=== PATIENT | female | born 1940 | race Caucasian/White ===

== ENCOUNTER → 2018-10-02 08:35 | Outpatient (CLI) | payer SELFPAY ==
[2018-09-15 15:59] VITALS: BMI 35.3
--- NOTE | 2018-10-02 08:39 | ECHOCS_ITS ---
Reason For Study: syncope/near syncope, HTN Procedure This was a 2D Doppler, Color Flow transthoracic echocardiogram. Exam performed in department. Left Ventricle Normal size and thickness. The estimated ejection fraction is 65 %. Stage 1 diastolic dysfunction. No regional wall motion abnormalities noted. Right Ventricle Normal size and thickness. Normal systolic function. Atria The left atrium is mildly enlarged. Normal right atrium. Normal atrial septum. Mitral Valve The mitral valve is structurally normal. No prolapse or stenosis seen. Trivial mitral valve insufficiency. Tricuspid Valve Normal tricuspid valve. Trivial tricuspid valve insufficiency. Right ventricular systolic pressure estimated to be 25 mmHg. Aortic Valve Normal aortic valve. Trisinus/trileaflet aortic valve. Pulmonic Valve Normal pulmonic valve. Great Vessels Normal aortic root. Normal arch. Normal inferior vena cava. Inferior vena cava collapse with sniff. Pericardium/Pleural No pericardial effusion. Medication 22 gauge I.V. with prn adaptor inserted into right arm. Diluted definity 3.0ml given slow IV push to enhance endocardial definition. MMode/2D Measurements & Calculations LVIDd: 4.7 cm IVSd: 1.2 cm Ao root diam: 2.6 cm LVIDs: 2.9 cm LVPWd: 1.1 cm RVDd: 2.7 cm FS: 38.7 % LAV(MOD-bp): 72.0 ml LA A4 area: 22.4 cm2 LA dimension(2D): 4.5 cm LAV(MOD-bp) Indexed: 36.3 ml/m2 LAV(MOD-sp2): 71.2 ml LAV(MOD-sp4): 71.7 ml RA A4 area: 14.7 cm2 Time Measurements MV dec time: 0.23 sec Doppler Measurements & Calculations MV E max geoff: 110.6 cm/sec Lat Peak E' Geoff: 8.8 cm/sec Med Peak E' Geoff: 9.7 cm/sec MV A max geoff: 126.0 cm/sec E/E' lat: 12.6 E/E' med: 11.4 MV E/A: 0.88 PA V2 max: 89.2 cm/sec TR max geoff: 224.0 cm/sec TR max P.1 mmHg Interpretation Summary The estimated ejection fraction is 65 %. Stage 1 diastolic dysfunction. Trivial mitral valve insufficiency. Trivial tricuspid valve insufficiency. Right ventricular systolic pressure estimated to be 25 mmHg. The study was technically difficult. Contrast injection was performed. There is no comparison study available. Ordering Physician: Geoff Garcia Referring Physician: Amanda Bolanos Performed By: Lyndsay Mitchell, DEE, RVT
== END ==
PROVIDERS: Family Provider Student in an Organized Health Care Education/Training Program; PCP Student in an Organized Health Care Education/Training Program; Referring Provider Internal Medicine Cardiovascular Disease; Visit Provider Internal Medicine Cardiovascular Disease
DX: R55 Syncope and collapse (principal); I10 Essential (primary) hypertension
CPT/HCPCS: 93306; Q9957; A4216; C8929

== ENCOUNTER → 2018-10-06 08:49 | Outpatient (CLI) | payer SELFPAY ==
[2018-09-15 15:59] VITALS: BMI 35.3
--- NOTE | 2018-10-06 09:05 | STEWCON_ITS ---
Reason For Study: SYNCOPE/NEAR SYNCOPE Stress Results Protocol: Dobutamine with definity Maximum Predicted HR: 144 bpm Target HR: 122 bpm % Maximum Predicted HR: 97 % DurationHeart Rate Stage (mm:ss) (bpm) BP Comment BASELINE 104 153/841.4CC DEFINITY DOBUTAMINE 10 MCG 3:00 134 177/780.6 CC DEFINITY DOBUTAMINE 20 MCG 2:22 139 177/782 CC DEFINTIY RECOVERY 120 145/771 CC DEFINITY Stress Duration: 5:22 mm:ss Maximum Stress HR: 139 bpm Baseline Echocardiogram Findings The estimated ejection fraction is 65 %. Stress Echo Wall motion Data Resting WM Intermediate WM Stress WM Resting Wall Motion Wall Motion Stress No regional wall motion No regional wall motion abnormalities noted. abnormalities noted. EKG Data The baseline ECG displays normal sinus rhythm. The patient was titrated from 10 mcg to a maximum of 20 mcg of dobutamine during the stress. The maximum heart rate attained was 164 beats per minute. This was 113% of maximum predicted heart rate. At peak infusion, upsloping ST changes only were noted, which did not meet the criteria for ischemia. No clinical angina was noted. Interpretation Summary The estimated ejection fraction is 65 %. Normal, adequate, dobutamine echocardiogram. Negative for ischemia by EKG and echocardiographic criteria. No anginal symptoms noted. Rare PVC noted. Baseline atrial fibrillation at rest. Test terminated due to attainment of target heart rate. Final LVEF is 75%. Decreased sensitivity due to poor echo windows requiring Definity agent. No complications. The study was technically difficult. Contrast injection was performed. Ordering Physician: Geoff Garcia Referring Physician: Geoff Garcia Performed By: Alta Loza RDCS
[2018-10-06 10:12] LABS: AST(SGOT) 16 U/L (15-37); Alanine Aminotransfer ALT/SGPT 21 U/L (13-56); Alkaline Phosphatase 83 U/L (45-117); Bilirubin, Direct 0.17 mg/dL (0.00-0.30); Cholesterol 189 mg/dL (200); Globulin 3.5 g/dL (2.2-4.2); High Density Lipoprotein 61 mg/dL; Protein, Total 7.5 g/dL (6.4-8.2); Triglycerides 154 mg/dL; Very Low Density Lipoprotein 31 mg/dL (5-40)
== END ==
PROVIDERS: Family Provider Student in an Organized Health Care Education/Training Program; PCP Student in an Organized Health Care Education/Training Program; Referring Provider Internal Medicine Cardiovascular Disease; Visit Provider Internal Medicine Cardiovascular Disease
DX: R55 Syncope and collapse (principal); I10 Essential (primary) hypertension; E78.5 Hyperlipidemia, unspecified
CPT/HCPCS: 36415; 80061; 80076; 93017; 93350; J7040; Q9957; A4216; C8928

== ENCOUNTER 2022-05-13 10:32 | Inpatient (IN) | payer OTHER, SELFPAY ==
[2022-05-13] VITALS (11 sets, daily range): BP systolic 127–199; BP diastolic 73–119; PULSE 63–120; RESP 16–24; TEMP 36–36.8; O2SAT 90–99; BMI 32.2; BMI 31.8
--- NOTE | 2022-05-13 11:11 | EX.ED.VIS.UR ---
HPI HPI - URI History of Present Illness Chief Complaint: Cough Informant: patient and family Onset/Context/Timing Onset: Days Context: Gradual Onset Timing: Continuous Current Severity: Mild Maximum Severity: Mild Associated Symptoms Associated Symptoms: Positive for Shortness of Breath and Nonproductive cough Narrative Narrative: 82-year-old female history of hypertension. She has had a cough for about. Was seen in urgent care and started on a Zithromax Z-YOBANI which she is almost finished. Really no significant improvement. Her and family states she has been so weak and has felt short of breath. No fever or chills. No vomiting or diarrhea. No chest pain or hemoptysis. This morning she was found down at home and there is questionable if she had any loss of conscious. It was unwitnessed fall. Prior similar symptoms: No Recent Illness/Hospitalization: No ROS ROS ED ROS Narrative Cough. Wheezing. Shortness of breath. Generalized weakness. Review of Systems ROS Unobtainable: Denies due to encephalopathy Constitutional Constitutional ED: Denies chills or fever(s) Eyes Eyes: Denies blurry vision ENT ENT ED: Denies ear pain Cardiovascular Cardiovascular: Denies chest pain or palpitations Respiratory/Chest Respiratory/Chest: Reports cough and dyspnea Gastrointestinal Gastrointestinal: Denies abdominal pain, constipation, diarrhea, melena, nausea or vomiting Genitourinary Genitourinary ED: Denies dysuria Musculoskeletal Musculoskeletal: Denies arthralgias Integumentary Denies abscess Neurologic Neurologic: Denies headache(s) Psychiatric Psychiatric: Denies anxiety Endocrine Endocrinology: Denies cold intolerance Hematologic/Lymphatic Hematologic/Lymphatic: Denies easy bleeding Allergic/Immunologic Allergic/Immunologic ED: Denies mouth swelling or tongue swelling [facility] Medical History (Updated 05/13/22 @ 13:[address] Chalo Hatch MD) Anxiety Brain aneurysm Depression Dizziness Hypertension Severe uncontrolled hypertension Syncope and collapse Home Medications aspirin 81 mg tablet,delayed release (Adult Aspirin Regimen) 81 mg PO DAILY 09/15/18 [History Last Taken 05/13/22] azithromycin 250 mg tablet 250 mg PO DAILY ANTIBIOTIC 05/13/22 [History Last Taken 05/13/22] metoprolol succinate 100 mg tablet,extended release 24 hr 100 mg PO DAILY HTN 05/13/22 [History Last Taken 05/13/22] Allergy/AdvReac Type Severity Reaction Status Date / Time No Known Allergies Allergy Verified 05/13/22 10:33 Family History Mother Heart disease Surgical History History of hernia repair Social History Smoking Status: Never smoker EXAM Physical Exam Narrative Exam Narrative: 82-year-old female no acute distress. Vital signs are stable afebrile. Pulse ox is 91% on room air no signs of hypoxia. Her initial blood pressure elevated 138/119. H EENT exam unremarkable. Neck nontender no JVD. Lungs few scattered expiratory wheezes. No rales or rhonchi. Heart tachycardia with a rate of 120 may be A-fib.. Abdomen soft nontender. Moving all 4 extremities. Calves are nontender without edema or cords. Neurologically she is awake and alert with no focal motor deficits. Const Vital Signs: 05/13/22 10:33 05/13/22 11:10 05/13/22 11:10 Temperature 96.8 F L Temperature Source Temporal Pulse Rate 83 Respiratory Rate 18 Respiratory Effort Short of Breath Respiratory Depth Normal Respiratory Pattern Normal Blood Pressure 138/119 H Blood Pressure Mean 125 Pulse Ox 91 Oxygen Delivery Method Room Air Room Air Room Air Oxygen Flow Rate (L/min) 05/13/22 12:00 05/13/22 12:01 05/13/22 12:19 Temperature Temperature Source Pulse Rate 119 H Respiratory Rate 24 H 16 24 H Respiratory Effort Respiratory Depth Respiratory Pattern Tachypnea Blood Pressure Blood Pressure Mean Pulse Ox 90 97 Oxygen Delivery Method Room Air Nasal Cannula Oxygen Flow Rate (L/min) 2 Positive well nourished, well developed and obese; Negative for cachectic or contractures General Appearance ED: well developed and pallor; Negative for cachectic or contractures Nutritional Appearance: obese; Negative for cachectic HEENT Reports moist mucous membranes; Denies dry mucous membranes normocephalic and atraumatic Face and Sinus: Negative for sinus tenderness Mouth ED: No dry mucous membranes Mouth: No dry mucous membranes Throat: posterior oropharynx normal Eyes PERRL and EOMs intact bilaterally General Eye ED: Negative for pale conjunctiva or scleral icterus Neck no lymphadenopathy, supple, no meningeal signs and no JVD Resp normal respiratory effort and No clear to auscultation bilaterally Effort and Inspection: Negative for retractions Auscultation: wheezes; Negative for rales or rhonchi Cardio S1 normal heart sound, S2 normal heart sound and no murmurs Cardio Narrative: Tachycardia rate around 120 suspect A-fib. Rate: tachycardic; Negative for regular rate Rhythm: abnormal rhythm; Negative for regular rhythm GI non-tender, non-distended and no masses Inspection: Negative for abdominal distention Auscultation: normoactive bowel sounds Palpation: soft; Negative for tender Back/Spine no CVA tenderness and normal ROM General Back: Negative for CVA tenderness Cervical Spine: Negative for cervical spine tenderness Thoracic Spine / Upper Back: Negative for thoracic spinal tenderness Lumbar Spine / Lower Back: Negative for lumbar spinal tenderness Sacrum: Negative for tenderness Extremity normal to inspection and full ROM General Extremety ED: Negative for cyanosis or tenderness General Extremity: Negative for cyanosis Neuro oriented x3 and CN's II-XII intact bilaterally Sensorium / Orientation: alert, oriented to person, oriented to place and oriented to time; Negative for orientation impaired, lethargic or stuporous Motor Exam: strength 5/5 throughout Psych mental status grossly normal Appearance: Negative for other Attitude: No agitated Mood & Affect: Negative for depressed, anxious or tearful Skin General Skin Exam: pallor; Negative for jaundice Lesions: no lesions Rashes: no rashes Trauma: Negative for abrasion MDM MDM MDM Narrative Medical decision making narrative: 82-year-old short of breath, wheezing and pale. Been treated for a URI without relief of her symptoms. This could be from underlying pneumonia, COVID, anemia versus a cardiac etiology. She undergo a cardiac work-up with a chest x-ray and a COVID test. 82-year-old with A-fib RVR. Being given IV Cardizem. I have the hospitalist on page for admission. Lab Data Attestation: I reviewed the patient's lab results. Lab results narrative: COVID and influenza swabs are negative. White count 11.4. H&H 14 and 43. Platelets 205. Electrolytes show a gap of 7. BUN 19 creatinine 0.7. Glucose 116. Troponin is only 7. BNP is elevated at 635. Chest x-ray no acute process. Labs: Laboratory Results - last 24 hr 05/13/22 05/13/22 05/13/22 12:06 12:06 12:06 WBC 11.4 H RBC 5.10 Hgb 14.0 Hct 43.1 MCV 84.5 MCH 27.5 MCHC 32.5 RDW Std Deviation 39.8 RDW Coeff of Marissa 12.9 Plt Count 205 MPV 10.6 Immature Gran % (Auto) 0.400 Neut % (Auto) 79.0 H Lymph % (Auto) 12.0 L [place] % (Auto) 8.2 Eos % (Auto) 0.1 Baso % (Auto) 0.3 Absolute Neuts (auto) 9.0 H Absolute Lymphs (auto) 1.37 Nucleated RBC % 0 Sodium 139 Potassium 3.9 Chloride 104 Carbon Dioxide 28.0 Anion Gap 7 BUN 19 H Creatinine 0.79 Estim Creat Clear Calc 42.00 Est GFR (MDRD) Af Amer 90 Est GFR (MDRD) Non-Af 74 BUN/Creatinine Ratio 23.9 H Glucose 116 H Calcium 9.4 Troponin I High Sens 12 B-Natriuretic Peptide 635.7 H Radiography Diagnostic Testing: Clinical Impression(s) from Imaging Studies Chest X-Ray 05/13/22 12:10 IMPRESSION: No acute abnormality is seen. Electronically Signed: Wayne Clemons MD at 12:23 EST , Chest x-ray, portable, single view shows no acute abnormality. Normal cardiac silhouette. Rhythm Strip Rhythm Strip: A-fib Rate: 120 Ectopy: None EKG Initial EKG: Attestation: I personally reviewed and interpreted this EKG as follows: Interpretation: No Acute Injury Pattern and Atrial Fibrillation Comments: Atrial fibrillation with a rate of 120 no acute signs of RI or ischemia. Prior EKG tracings: not available for review Discharge Plan Dx/Rx/DC Orders Clinical Impression: Atrial fibrillation with rapid ventricular response, Acute dyspnea Disposition Disposition: [facility]
--- NOTE | 2022-05-13 11:15 | EKG12_ITS ---
Test Reason : Blood Pressure : / mmHG Vent. Rate : 120 BPM Atrial Rate : 000 BPM P-R Int : 000 ms QRS Dur : 068 ms QT Int : 270 ms P-R-T Axes : 000 060 125 degrees QTc Int : 381 ms Atrial fibrillation with rapid ventricular response with premature ventricular or aberrantly conducte d complexes Nonspecific ST and T wave abnormality Abnormal ECG Confirmed by ARIAN CORADO, CADEN ([id number]), story editor MICHAEL CARRASCO ([id number]) on 05/14/2022 9:59:28 AM Referred By: TU Confirmed By:CADEN DON MD
--- NOTE | 2022-05-13 12:10 | RAD_ITS ---
STUDY: X-RAY CHEST REASON FOR EXAM: Female, 82 years old. Chest pain TECHNIQUE: Single AP portable view of the chest. COMPARISON: None. FINDINGS: EKG electrodes are seen. A loop recording device is seen overlying the lower left hemithorax. The lungs are clear and expanded. There is no demonstrated pleural abnormality. Normal size heart. Normal mediastinum and ady. Normal visualized pulmonary arteries. Normal visualized aortic arch and descending thoracic aorta. There are diffuse degenerative changes of the visualized thoracic spine. There is degenerative osteoarthritis of the bilateral shoulders. There is no demonstrated abnormality of the visualized soft tissue structures of the upper abdomen. RAD/Chest 1 View (Portable) IMPRESSION: No acute abnormality is seen. Electronically Signed: Wayne Clemons MD at 12:23 EST ,
[2022-05-13 12:11] LABS: Absolute Lymphocyte Count 1.37 X10^3/uL (0.83-4.51); Basophil# 0.03 X10^3/uL; Basophil% 0.3 % (0-1); Eosinophil# 0.01 X10^3/uL; Eosinophils% 0.1 % (0-5); Hematocrit 43.1 % (37-47); Lymphocyte # 1.37 X10^3/ul (0.83-4.51); Mean Corp Hgb Conc 32.5 g/dL (32-36); Mean Corpuscular Hgb 27.5 pg (27.0-32.0); Mean Corpuscular Volume 84.5 fL (81-99); Mean Platelet Vol. 10.6 fl (6.2-12.0); Monocyte# 0.93 X10^3/uL; Monocyte% 8.2 % (0-10); NRBC Flagged by Analyzer 0 % (0-5); Platelet Count 205 K/mm3 (150-450); RBC Distribution Width CV 12.9 % (11.6-14.6); RBC Distribution Width SD 39.8 fl (35.1-43.9); White Blood Count 11.4 K/mm3 (4.4-11.0)
[2022-05-13] MEDS: Ipratropium/Albuterol Sulfate 3 ML AMPUL.NEB INHALATION (12:19)
[2022-05-13 12:26] LABS: BNP,B-Type NATRIURETIC PEPTIDE 635.7 pg/mL (0-100)
[2022-05-13 12:30] LABS: Anion Gap 7 (5-15); BUN 19 mg/dL (7-18); BUN/Creat Ratio 23.9 RATIO (10-20); Calcium,Total 9.4 mg/dL (8.5-10.1); Chloride 104 mmol/L (98-107); Creatinine, Serum 0.79 mg/dL (0.55-1.02); EST Glomerular Filtration Rate 74 mL/min (>60); Est Glom Filt Rate - Afr Amer 90 mL/min (>60); Glucose 116 mg/dL (74-106); Potassium 3.9 mmol/L (3.5-5.1); Sodium Level 139 mmol/L (136-145); Troponin-I HS 12 pg/mL (3.0-54.0)
[2022-05-13] MEDS: dilTIAZem 25 MG/5 ML Vial 20 MG IV BOLUS (14:06)
--- NOTE | 2022-05-13 15:25 | HP.PCM.HOS_ITS ---
[facility] - General General Date of Service: 05/13/22 Chief Complaint: Shortness of breath [facility] Narrative JOCELYNE VILLEDA, is a 82 F who presents with shortness of breath. Patient recently started on Z-Kobe. But had not noted any improvement. So she presented to the emergency room and was found to be in atrial fibrillation with RVR. Heart rate in the 120s. Patient did receive one-time dose of IV diltiazem which helped her heart rate into the lower into the 60s but still remained in atrial fibrillation. Patient has no prior history of atrial fibrillation. Denies any chest pain. Does note that she has increasing lower extremity edema. Patient otherwise feels fine at this time. [facility] Medical History (Updated 05/13/22 @ 15:[address] Santosh Rooney DO) Anxiety Brain aneurysm Depression Dizziness Hypertension Severe uncontrolled hypertension Syncope and collapse Home Medications aspirin 81 mg tablet,delayed release (Adult Aspirin Regimen) 81 mg PO DAILY 09/15/18 [History Last Taken 05/13/22] azithromycin 250 mg tablet 250 mg PO DAILY ANTIBIOTIC 05/13/22 [History Last Taken 05/13/22] metoprolol succinate 100 mg tablet,extended release 24 hr 100 mg PO DAILY HTN 05/13/22 [History Last Taken 05/13/22] Allergy/AdvReac Type Severity Reaction Status Date / Time No Known Allergies Allergy Verified 05/13/22 10:33 Family History Mother Heart disease Surgical History History of hernia repair Social History Smoking Status: Never smoker Vital Signs Vital Signs Vital Signs: 05/13/22 10:33 05/13/22 11:10 05/13/22 11:10 Temperature 36.0 C L Temperature Source Temporal Pulse Rate 83 Respiratory Rate 18 Respiratory Effort Short of Breath Respiratory Depth Normal Respiratory Pattern Normal Blood Pressure 138/119 H Blood Pressure Mean 125 Pulse Ox 91 Oxygen Delivery Method Room Air Room Air Room Air Oxygen Flow Rate (L/min) 05/13/22 12:00 05/13/22 12:01 05/13/22 12:19 Temperature Temperature Source Pulse Rate 119 H Respiratory Rate 24 H 16 24 H Respiratory Effort Respiratory Depth Respiratory Pattern Tachypnea Blood Pressure Blood Pressure Mean Pulse Ox 90 97 Oxygen Delivery Method Room Air Nasal Cannula Oxygen Flow Rate (L/min) 2 05/13/22 14:05 05/13/22 14:13 Temperature Temperature Source Pulse Rate 120 H 63 Respiratory Rate 20 H Respiratory Effort Respiratory Depth Respiratory Pattern Blood Pressure 127/73 H Blood Pressure Mean 91 Pulse Ox 96 Oxygen Delivery Method Nasal Cannula Oxygen Flow Rate (L/min) 2 Weight Weight: 90.6 kg Body Mass Index (BMI) 32.2 Physical Exam Const alert and no apparent distress Constitutional Narrative: No respiratory distress. No conversational dyspnea. HEENT normocephalic, hearing grossly normal bilaterally and moist oral mucous membranes Resp normal respiratory effort, no retractions, no use of accessory muscles and clear to auscultation bilaterally Cardio S1 normal heart sound and S2 normal heart sound Cardio Narrative: Irregularly irregular GI normal to inspection, nondistended, normoactive bowel sounds, soft to palpation, non-tender and non-distended Extremity no clubbing, cyanosis or edema Extremity Narrative: +1 lower extremity edema bilaterally. Skin Skin Narrative: No rashes or bruises. Neuro moves all extremities and no focal motor deficits Psych affect normal Results Lab / Micro Data Attestation: I reviewed the patient's lab results. Result Diagrams: 05/13/22 12:06 05/13/22 12:06 Labs: Laboratory Results - last 24 hr 05/13/22 12:06: WBC 11.4 H, RBC 5.10, Hgb 14.0, Hct 43.1, MCV 84.5, MCH 27.5, MCHC 32.5, RDW Std Deviation 39.8, RDW Coeff of Marissa 12.9, Plt Count 205, MPV 10.6, Immature Gran % (Auto) 0.400, Neut % (Auto) 79.0 H, Lymph % (Auto) 12.0 L, [place] % (Auto) 8.2, Eos % (Auto) 0.1, Baso % (Auto) 0.3, Absolute Neuts (auto) 9.0 H, Absolute Lymphs (auto) 1.37, Nucleated RBC % 0 05/13/22 12:06: Sodium 139, Potassium 3.9, Chloride 104, Carbon Dioxide 28.0, Anion Gap 7, BUN 19 H, Creatinine 0.79, Estim Creat Clear Calc 42.00, Est GFR (MDRD) Af Amer 90, Est GFR (MDRD) Non-Af 74, BUN/Creatinine Ratio 23.9 H, Glucose 116 H, Calcium 9.4, Troponin I High Sens 12 05/13/22 12:06: B-Natriuretic Peptide 635.7 H Micro: Microbiology 05/13/22 11:45 Nasal Secretion SARS-CoV-2 & FLU Antigen (Rapid) - Final Rhythm Strip Rhythm Strip: A-fib Rate: 120 Ectopy: None EKG Initial EKG: Attestation: I personally reviewed and interpreted this EKG as follows: Prior EKG tracings: available for review EKG Rhythm Intrepretation: Atrial Fibrillation (With RVR) Radiology Impression Chest X-Ray 05/13/22 12:10 IMPRESSION: No acute abnormality is seen. Electronically Signed: Wayne Clemons MD at 12:23 EST , Assessment & Plan Assessment/Plan (1) Atrial fibrillation with rapid ventricular response: PLAN: Currently rate controlled but still in atrial fibrillation Will change her metoprolol succinate from 100 daily to 50 twice daily Check echocardiogram Consult cardiology [id number] of 4: Will hold off on anticoagulation until we get further records from [facility] to ensure that we can properly anticoagulate. In the meantime continue with aspirin. (2) CHF exacerbation: QUALIFIERS: Heart failure type: unspecified Qualified Code(s): I50.9 - Heart failure, unspecified PLAN: Acute Unclear type Chest x-ray is unremarkable but does have lower extremity edema IV furosemide (3) Brain aneurysm: PLAN: Per history has been evaluated at [facility]. We will request records from [facility] PLAN: Plan VTE prophylaxis: SCDs for now CODE STATUS: Addressed with the patient. Patient was to be DNR Comfort Care arrest no intubation. Family, who is present in the room, is also on board with that. Charges/Coding Visit Charges Inpatient E&M: 95596 Init Hosp L3
--- NOTE | 2022-05-13 17:45 | PCM.CONS.C ---
Assessment & Plan Assessment/Plan (1) CHF exacerbation: QUALIFIERS: Heart failure type: unspecified Qualified Code(s): I50.9 - Heart failure, unspecified PLAN: She does appear to have congestive heart failure with exacerbation. This is likely on the basis of her elevated blood pressure as well as the atrial fibrillation. At this particular time I would recommend that we proceed with diuretic management. We should obtain an echocardiogram to assess her ventricular function and depending on the findings further recommendations will be made. (2) Atrial fibrillation with rapid ventricular response: PLAN: She does have atrial fibrillation and presented with a rapid ventricular response rate. She had been on her beta-antelmo. I would recommend that we continue the same. I suspect the congestive heart failure led to some of the rapid ventricular response rate and vice versa. I do not think that she is a candidate for anticoagulation based on her previous aneurysmal findings. (3) Severe uncontrolled hypertension: PLAN: She does have severe uncontrolled hypertension. I will recommend the addition of an DUNIA inhibitor for better blood pressure control together with the beta-antelmo. She will also benefit from a diuretic Thank you for allowing me to participate in the care of your patient. Please don't hesitate to call if any issues arise. HPI Consult Data Date of Consult: 05/13/22 HPI Narrative HPI Narrative: JOCELYNE VILLEDA, is a 82 F who presents to the emergency room with a complaint of shortness of breath as well as near syncope. She does have a history of atrial fibrillation, hypertension and has not been seen in our practice for over 3 years. She had previously presented with dizziness as well as near syncope and severely elevated blood pressure. She was treated for the above. 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 It does not appear that this was intervened on. She says that she has had numerous episodes of syncope in the past and actually had an implantable loop recorder which she had not had interrogated over many years. In September 2018 she had had an echocardiogram demonstrating an ejection fraction of 65%, stage I diastolic dysfunction and no wall motion abnormalities noted. She also had a stress test done which did not demonstrate any evidence of ischemia. On her visits to the emergency room today she was noted to be in atrial fibrillation with a controlled ventricular response rate. She had been on metoprolol to which it appears that she was compliant. She however has noted that her feet have been swelling, she denies a cough or chest discomfort but has been short of breath with minimal exertion. Cardiology was called to see her because of the atrial fibrillation. [facility] Medical History Anxiety Brain aneurysm Depression Dizziness Hypertension Severe uncontrolled hypertension Syncope and collapse Home Medications aspirin 81 mg tablet,delayed release (Adult Aspirin Regimen) 81 mg PO DAILY 09/15/18 [History Last Taken 05/13/22] azithromycin 250 mg tablet 250 mg PO DAILY ANTIBIOTIC 05/13/22 [History Last Taken 05/13/22] metoprolol succinate 100 mg tablet,extended release 24 hr 100 mg PO DAILY HTN 05/13/22 [History Last Taken 05/13/22] Allergy/AdvReac Type Severity Reaction Status Date / Time No Known Allergies Allergy Verified 05/13/22 10:33 Family History Mother Heart disease Surgical History History of hernia repair Social History Smoking Status: Never smoker ROS Constitutional Constitutional: Denies fever(s) or weight loss Eyes Eyes: Reports systems reviewed and no addt'l complaints, except as documented ENT HEENT: Reports systems reviewed and no addt'l complaints, except as documented Cardiovascular Cardiovascular: Reports dyspnea at rest, dyspnea on exertion, edema and palpitations; Denies chest pain at rest, chest pain with activity or paroxysmal nocturnal dyspnea Respiratory/Chest Respiratory/Chest: Reports dyspnea on exertion, shortness of breath at rest and shortness of breath with exertion; Denies productive cough Gastrointestinal Gastrointestinal: Denies change in bowel habits, nausea, vomiting or weight changes Genitourinary Genitourinary: Denies difficulty urinating Musculoskeletal Musculoskeletal: Denies joint stiffness or muscle weakness Integumentary Integumentary: Denies lesions Neurologic Neurologic: Denies dizziness or syncope Psychiatric Psychiatric: Denies anxiety Endocrine Endocrinology: Denies excessive sweating or fatigue Hematologic/Lymphatic Hematologic/Lymphatic: Denies anemia Allergic/Immunologic Allergic/Immunologic: Denies seasonal rhinorrhea Physical Exam Const alert, oriented x3 and no apparent distress General Appearance: cooperative HEENT hearing grossly normal bilaterally Head and Scalp: atraumatic Eyes EOMs intact bilaterally Neck General: normal visual inspection Chest inspection of chest normal and palpation of chest normal Resp normal respiratory effort Auscultation: clear to auscultation bilaterally Cardio S1 normal heart sound and S2 normal heart sound Jugular Venous Distention: JVD Rhythm: abnormal rhythm irregularly irregular GI normal to inspection, nondistended, normoactive bowel sounds Extremity normal capillary refill General Extremity: edema bilateral Peripheral Pulses: Yes pulses 2+ throughout and femoral pulses present Skin no rashes or lesions noted Neuro oriented x3 and CN's II-XII intact bilaterally Psych Appearance: grossly normal and appropriate Risk Stratification Risk Stratification Applicable: No Objective Data Vital Signs: Vital Signs Temp Pulse Resp BP Pulse Ox O2 Del Method O2 Flow Rate 98.0 F 76 18 159/95 H 99 Nasal Cannula 2 05/13/22 16:03 05/13/22 16:03 05/13/22 16:03 05/13/22 16:03 05/13/22 16:03 05/13/22 16:03 05/13/22 16:03 Oxygen Flow Rate (L/min) 2 Oxygen Delivery Method Nasal Cannula Weight: 199 lb 11.821 oz Body Mass Index (BMI) 32.2 Lab / Micro Data Result Diagrams: 05/13/22 12:06 05/13/22 12:06 Labs: Laboratory Results - last 24 hr 05/13/22 12:06: WBC 11.4 H, RBC 5.10, Hgb 14.0, Hct 43.1, MCV 84.5, MCH 27.5, MCHC 32.5, RDW Std Deviation 39.8, RDW Coeff of Marissa 12.9, Plt Count 205, MPV 10.6, Immature Gran % (Auto) 0.400, Neut % (Auto) 79.0 H, Lymph % (Auto) 12.0 L, [place] % (Auto) 8.2, Eos % (Auto) 0.1, Baso % (Auto) 0.3, Absolute Neuts (auto) 9.0 H, Absolute Lymphs (auto) 1.37, Nucleated RBC % 0 05/13/22 12:06: Sodium 139, Potassium 3.9, Chloride 104, Carbon Dioxide 28.0, Anion Gap 7, BUN 19 H, Creatinine 0.79, Estim Creat Clear Calc 42.00, Est GFR (MDRD) Af Amer 90, Est GFR (MDRD) Non-Af 74, BUN/Creatinine Ratio 23.9 H, Glucose 116 H, Calcium 9.4, Troponin I High Sens 12 05/13/22 12:06: B-Natriuretic Peptide 635.7 H Micro: Microbiology 05/13/22 11:45 Nasal Secretion SARS-CoV-2 & FLU Antigen (Rapid) - Final Rhythm Strip Rhythm Strip: A-fib Rate: 120 Ectopy: None Cardiology Labs/Tests 05/13/22 12:06: WBC 11.4 H, RBC 5.10, Hgb 14.0, Hct 43.1, MCV 84.5, MCH 27.5, MCHC 32.5, Plt Count 205, MPV 10.6, Immature Gran % (Auto) 0.400, Neut % (Auto) 79.0 H, Lymph % (Auto) 12.0 L, [place] % (Auto) 8.2, Eos % (Auto) 0.1, Baso % (Auto) 0.3, Absolute Neuts (auto) 9.0 H, Nucleated RBC % 0 05/13/22 12:06: Sodium 139, Potassium 3.9, Chloride 104, Carbon Dioxide 28.0, Anion Gap 7, BUN 19 H, Creatinine 0.79, Est GFR (MDRD) Af Amer 90, Est GFR (MDRD) Non-Af 74, BUN/Creatinine Ratio 23.9 H, Glucose 116 H, Calcium 9.4 05/13/22 12:06: B-Natriuretic Peptide 635.7 H Rhythm: EKG: ECHO: Stress Test: Cardiac Cath: PCI: CT Surgery: Holter monitor: EPS: PPM: CXR: Chest CT Scan: Radiography Diagnostic Testing: Radiology Impression Chest X-Ray 05/13/22 12:10 IMPRESSION: No acute abnormality is seen. Electronically Signed: Wayne Clemons MD at 12:23 EST ,
--- NOTE | 2022-05-13 17:51 | ECHOCS_ITS ---
Version 2 Reason For Study: Afib/Flutter Procedure This was a 2D Doppler, Color Flow transthoracic echocardiogram. The study was technically difficult. Contrast injection was performed. Exam performed portable in patient room. Left Ventricle Normal LV size. Left ventricular systolic function is lower limits of normal. The estimated ejection fraction is 53 %. Stage 2 diastolic dysfunction. No regional wall motion abnormalities noted. Right Ventricle Normal RV size. Normal systolic function. Atria Normal left atrium. Normal right atrium. Mitral Valve Normal mitral valve. Tricuspid Valve Normal tricuspid valve. Aortic Valve Trisinus/trileaflet aortic valve. Pulmonic Valve Normal pulmonic valve. Great Vessels Normal aortic root. The pulmonary artery is normal size. Normal inferior vena cava. Pericardium/Pleural No pericardial effusion. Medication Diluted definity 1.5ml given slow IV push to enhance endocardial definition. MMode/2D Measurements & Calculations LVIDd: 4.6 cm IVSd: 0.81 cm LA dimension: 4.1 cm LVIDs: 3.2 cm LVPWd: 0.83 cm RVDd: 2.6 cm FS: 30.2 % LAV(MOD-bp): 44.0 ml LA A4 area: 15.6 cm2 RA A4 area: 14.2 cm2 LAV(MOD-bp) Indexed: 22.2 ml/m2 LAV(MOD-sp2): 50.6 ml LAV(MOD-sp4): 37.9 ml Time Measurements MV dec time: 0.14 sec Doppler Measurements & Calculations MV E max geoff: 90.3 cm/sec Lat Peak E' Geoff: 9.2 cm/sec Med Peak E' Geoff: 7.4 cm/sec MV A max geoff: 73.5 cm/sec E/E' lat: 9.9 E/E' med: 12.2 MV E/A: 1.2 MV V2 max: 123.6 cm/sec MV P1/2t max geoff: 124.7 cm/sec Ao V2 max: 134.8 cm/sec MV max P.1 mmHg MV P1/2t: 62.0 msec Ao max P.3 mmHg MV V2 mean: 71.5 cm/sec MV dec slope: 589.0 cm/sec2 Ao V2 mean: 92.3 cm/sec MV mean P.4 mmHg Ao mean P.0 mmHg MV V2 VTI: 31.2 cm MVA(P1/2t): 3.5 cm2 Ao V2 VTI: 27.0 cm AV (velocity ratio): 0.76 LV V1 max: 101.6 cm/sec MR max geoff: 396.4 cm/sec PA V2 max: 70.1 cm/sec LV V1 max P.2 mmHg MR max P.8 mmHg PA V2 mean: 46.6 cm/sec LV V1 mean P.3 mmHg LV V1 mean: 71.6 cm/sec LV V1 VTI: 20.4 cm ECHO/Echo Complete W/ Contrast Interpretation Summary Normal LV size. Left ventricular systolic function is lower limits of normal. The estimated ejection fraction is 53 %. Stage 2 diastolic dysfunction. Contrast injection was performed. Ordering Physician: Bob Walter Performed By: Ruben Basilio RCS
[2022-05-13] MEDS: Furosemide 40 MG/4 ML Vial IV (18:33)
[2022-05-13] MEDS: Metoprolol Tartrate 50 MG Tablet PO (21:17)
[2022-05-13] MEDS: Nystatin Powder 15gm Bottle 1 APPLIC TOPICAL (21:17)
[2022-05-13] MEDS: 0.9% Saline Lock 10 ML Syringe IV (21:17)
[2022-05-13 21:28] LABS: Troponin-I HS 13 pg/mL (3.0-54.0)
[2022-05-13 22:45] LABS: Troponin-I HS 13 pg/mL (3.0-54.0)
[2022-05-14] VITALS (11 sets, daily range): BP systolic 135–148; BP diastolic 59–91; PULSE 72–150; RESP 18; TEMP 36.6–37.2; O2SAT 98–100; BMI 31.5
[2022-05-14 02:33] LABS: Absolute Lymphocyte Count 1.57 X10^3/uL (0.83-4.51); Absolute Neutrophil Count 6.9 X10^3/uL (2.0-7.7); Basophil# 0.03 X10^3/uL; Basophil% 0.3 % (0-1); Eosinophil# 0.14 X10^3/uL; Eosinophils% 1.5 % (0-5); Hematocrit 42.3 % (37-47); Hemoglobin 13.6 g/dL (12.0-15.0); Lymphocyte # 1.57 X10^3/ul (0.83-4.51); Lymphocyte % 16.4 % (19-41); Mean Corp Hgb Conc 32.2 g/dL (32-36); Mean Corpuscular Volume 83.9 fL (81-99); Mean Platelet Vol. 10.3 fl (6.2-12.0); Monocyte% 9.4 % (0-10); NRBC Flagged by Analyzer 0 % (0-5); Platelet Count 184 K/mm3 (150-450); RBC Distribution Width SD 39.6 fl (35.1-43.9); Red Blood Count 5.04 M/mm3 (4.2-5.4); White Blood Count 9.6 K/mm3 (4.4-11.0)
[2022-05-14 02:50] LABS: Anion Gap 8 (5-15); BUN 17 mg/dL (7-18); BUN/Creat Ratio 21.7 RATIO (10-20); Calcium,Total 9.2 mg/dL (8.5-10.1); Chloride 100 mmol/L (98-107); Creatinine, Serum 0.78 mg/dL (0.55-1.02); EST Glomerular Filtration Rate 75 mL/min (>60); Est Glom Filt Rate - Afr Amer 91 mL/min (>60); Glucose 112 mg/dL (74-106); Potassium 3.4 mmol/L (3.5-5.1); Sodium Level 140 mmol/L (136-145)
[2022-05-14 02:51] LABS: Troponin-I HS 13 pg/mL (3.0-54.0)
[2022-05-14] MEDS: Potassium Chloride Oral Tablet 20 MEQ 40 MEQ PO (03:50)
[2022-05-14] MEDS: 0.9% Saline Lock 10 ML Syringe IV ×4 (05:23→21:55)
[2022-05-14] MEDS: Metoprolol Tartrate 5 MG/5 ML Vial IV ×2 (05:23→06:49)
--- NOTE | 2022-05-14 07:34 | PN.CARD_ITS ---
Subjective Subjective The patient was seen and evaluated. Objective Data Vital Signs: Vital Signs Temp Pulse Resp BP Pulse Ox O2 Del Method O2 Flow Rate 98 F 142 H 18 135/86 H 98 Nasal Cannula 2 05/14/22 03:45 05/14/22 06:49 05/14/22 03:45 05/14/22 06:49 05/14/22 03:45 05/14/22 03:49 05/14/22 03:49 Oxygen Flow Rate (L/min) 2 Oxygen Delivery Method Nasal Cannula Weight: 196 lb 3.382 oz Body Mass Index (BMI) 31.5 Intake & Output: Intake and Output for Last 24 Hours 05/12/22 05/13/22 05/14/22 23:59 23:59 23:59 Intake Total 240 / 240 Output Total 2400 / 2400 300 / 300 Balance -2160 / -2160 -300 / -300 Lab / Micro Data Result Diagrams: 05/14/22 02:25 05/14/22 02:25 Labs: Laboratory Results - last 24 hr 05/13/22 12:06: WBC 11.4 H, RBC 5.10, Hgb 14.0, Hct 43.1, MCV 84.5, MCH 27.5, MCHC 32.5, RDW Std Deviation 39.8, RDW Coeff of Marissa 12.9, Plt Count 205, MPV 10.6, Immature Gran % (Auto) 0.400, Neut % (Auto) 79.0 H, Lymph % (Auto) 12.0 L, [place] % (Auto) 8.2, Eos % (Auto) 0.1, Baso % (Auto) 0.3, Absolute Neuts (auto) 9.0 H, Absolute Lymphs (auto) 1.37, Nucleated RBC % 0 05/13/22 12:06: Sodium 139, Potassium 3.9, Chloride 104, Carbon Dioxide 28.0, Anion Gap 7, BUN 19 H, Creatinine 0.79, Estim Creat Clear Calc 42.00, Est GFR (MDRD) Af Amer 90, Est GFR (MDRD) Non-Af 74, BUN/Creatinine Ratio 23.9 H, Glucose 116 H, Calcium 9.4, Troponin I High Sens 12 05/13/22 12:06: B-Natriuretic Peptide 635.7 H 05/13/22 20:38: Troponin I High Sens 13 05/13/22 22:19: Troponin I High Sens 13 05/14/22 02:25: WBC 9.6, RBC 5.04, Hgb 13.6, Hct 42.3, MCV 83.9, MCH 27.0, MCHC 32.2, RDW Std Deviation 39.6, RDW Coeff of Marissa 13.0, Plt Count 184, MPV 10.3, Immature Gran % (Auto) 0.400, Neut % (Auto) 72.0 H, Lymph % (Auto) 16.4 L, [place] % (Auto) 9.4, Eos % (Auto) 1.5, Baso % (Auto) 0.3, Absolute Neuts (auto) 6.9, Absolute Lymphs (auto) 1.57, Nucleated RBC % 0 05/14/22 02:25: Sodium 140, Potassium 3.4 L, Chloride 100, Carbon Dioxide 32.0, Anion Gap 8, BUN 17, Creatinine 0.78, Estim Creat Clear Calc 42.00, Est GFR (MDRD) Af Amer 91, Est GFR (MDRD) Non-Af 75, BUN/Creatinine Ratio 21.7 H, Glucose 112 H, Calcium 9.2 05/14/22 02:25: Troponin I High Sens 13 Micro: Microbiology 05/13/22 11:45 Nasal Secretion SARS-CoV-2 & FLU Antigen (Rapid) - Final Rhythm Strip Rhythm Strip: A-fib Rate: 120 Ectopy: None Cardiology Labs/Tests 05/13/22 12:06: WBC 11.4 H, RBC 5.10, Hgb 14.0, Hct 43.1, MCV 84.5, MCH 27.5, MCHC 32.5, Plt Count 205, MPV 10.6, Immature Gran % (Auto) 0.400, Neut % (Auto) 79.0 H, Lymph % (Auto) 12.0 L, [place] % (Auto) 8.2, Eos % (Auto) 0.1, Baso % (Auto) 0.3, Absolute Neuts (auto) 9.0 H, Nucleated RBC % 0 05/13/22 12:06: Sodium 139, Potassium 3.9, Chloride 104, Carbon Dioxide 28.0, Anion Gap 7, BUN 19 H, Creatinine 0.79, Est GFR (MDRD) Af Amer 90, Est GFR (MDRD) Non-Af 74, BUN/Creatinine Ratio 23.9 H, Glucose 116 H, Calcium 9.4 05/13/22 12:06: B-Natriuretic Peptide 635.7 H 05/14/22 02:25: WBC 9.6, RBC 5.04, Hgb 13.6, Hct 42.3, MCV 83.9, MCH 27.0, MCHC 32.2, Plt Count 184, MPV 10.3, Immature Gran % (Auto) 0.400, Neut % (Auto) 72.0 H, Lymph % (Auto) 16.4 L, [place] % (Auto) 9.4, Eos % (Auto) 1.5, Baso % (Auto) 0.3, Absolute Neuts (auto) 6.9, Nucleated RBC % 0 05/14/22 02:25: Sodium 140, Potassium 3.4 L, Chloride 100, Carbon Dioxide 32.0, Anion Gap 8, BUN 17, Creatinine 0.78, Est GFR (MDRD) Af Amer 91, Est GFR (MDRD) Non-Af 75, BUN/Creatinine Ratio 21.7 H, Glucose 112 H, Calcium 9.2 Rhythm: EKG: ECHO: Stress Test: Cardiac Cath: PCI: CT Surgery: Holter monitor: EPS: PPM: CXR: Chest CT Scan: Radiography Diagnostic Testing: Radiology Impression Chest X-Ray 05/13/22 12:10 IMPRESSION: No acute abnormality is seen. Electronically Signed: Wayne Clemons MD at 12:23 EST Reading Location ID and State: [address] [place] [address] , Service support , Physical Exam Const alert, oriented x3 and no apparent distress General Appearance: cooperative HEENT hearing grossly normal bilaterally Head and Scalp: atraumatic Eyes EOMs intact bilaterally Neck General: normal visual inspection Chest inspection of chest normal and palpation of chest normal Resp normal respiratory effort Auscultation: clear to auscultation bilaterally Cardio S1 normal heart sound and S2 normal heart sound Jugular Venous Distention: JVD Rhythm: abnormal rhythm irregularly irregular GI normal to inspection, nondistended, normoactive bowel sounds Extremity normal capillary refill General Extremity: edema bilateral Peripheral Pulses: Yes pulses 2+ throughout and femoral pulses present Skin no rashes or lesions noted Neuro oriented x3 and CN's II-XII intact bilaterally Psych Appearance: grossly normal and appropriate Assessment & Plan Assessment/Plan (1) CHF exacerbation: QUALIFIERS: Heart failure type: unspecified Qualified Code(s): I50.9 - Heart failure, unspecified PLAN: She does appear to have congestive heart failure with exacerbation. This is likely on the basis of her elevated blood pressure as well as the atrial fibrillation. At this particular time I would recommend that we proceed with diuretic management. * We should obtain an echocardiogram to assess her ventricular function and depending on the findings further recommendations will be made. (2) Atrial fibrillation with rapid ventricular response: PLAN: She does have atrial fibrillation and presented with a rapid ventricular response rate. She had been on her beta-antelmo. I would recommend that we continue the same. * I will increase the beta-antelmo to 100 mg twice a day. I suspect the congestive heart failure led to some of the rapid ventricular response rate and vice versa. I do not think that she is a candidate for anticoagulation based on her previous aneurysmal findings. (3) Severe uncontrolled hypertension: PLAN: She does have severe uncontrolled hypertension. I will recommend the addition of an DUNIA inhibitor for better blood pressure control together with the beta-antelmo. She will also benefit from a diuretic Thank you for allowing me to participate in the care of your patient. Please don't hesitate to call if any issues arise.
[2022-05-14] MEDS: Metoprolol Tartrate 100 MG Tablet PO ×2 (08:46→21:54)
[2022-05-14] MEDS: Furosemide 40 MG/4 ML Vial IV ×2 (08:47→17:43)
[2022-05-14] MEDS: Lisinopril 20 MG Tablet PO (08:47)
[2022-05-14] MEDS: Aspirin E.C. 81 MG Tablet PO (08:47)
[2022-05-14] MEDS: Nystatin Powder 15gm Bottle 1 APPLIC TOPICAL ×2 (08:48→21:54)
--- NOTE | 2022-05-14 13:10 | CASEMGMT ---
ELLIOTT SIDHU Face to Face with patient for initial transition planning/care coordination assessment. RN CM introduced self and role at [facility]. Patient lying in bed, alert and oriented, daughters at bedside. Patient willing to participate in assessment and is able to answer all questions appropriately. Care providers, pharmacy, and demographics verified. Patient wishes to discharge home, will monitor for HHC. Patient states she has no further needs or concerns at this time. CM to follow for discharge planning needs that may arise. PCP: Charlene Specialists: none Preferred Pharmacy: [facility]; [facility] at discharge. [place] [facility] [place]: none Living Will/HPOA: none LNOK: don, son Living Arrangements: Patient lives with daughter in a 2 story home with bed and bath on first floor. 2 steps and railing to enter the home. Patient is independent at home but daughter assists with bathing. Transportation: Driving service DME/HHC: Patient has shower chair, raised toilet, cane, walker, grab bars, wheelchair. Patient has access to electricity. No previous HHC or SNF. Disposition Plan: Patient to discharge home with family support and follow-up plans in place. Will monitor for HHC Isabel PEREZ, RN, CM
--- NOTE | 2022-05-14 14:06 | CHAPLAIN ---
Type of Pastoral Visit _x__ Initial Visit ___ Follow-up Visit ___ On-call Visit ___ General Patient Visit ___ Spiritual Assessment ___ Family Conference ___ Bereavement ___ Rapid Response ___ Code Blue ___ Other (describe below) Pastoral Care Referral From _x__ Patient ___ Family ___ Nurse ___ Physician ___ Site Reliability Engineer ___ Cash Register Servicer ___ Other (describe below) Sacrament/Intervention _x__ Active listening ___ Anointing ___ Gnosticism ___ Bereavement ___ Communion ___ Madalyn exploration ___ ___ Life review _x__ Prayer ___ Reconciliation ___ Sacrament of Sick _x__ Supportive presence ___ Wedding ___ Other (describe below) Pastoral Comments patient and three daughters are in the room; pt states that she is better and hopes to go home tomorrow; pt welcomes prayer and then afterwards acknowledges that her 12 weeks ago; pt then talks about that change and new season; daughter in the room also lost a son prior to that and so grief is evident; support offered
--- NOTE | 2022-05-14 19:25 | PCM.PN.HOSP ---
Reason for Visit Reason for Visit: Diagnoses Essential (primary) hypertension (05/13/22) Unspecified atrial fibrillation (05/13/22) Heart failure, unspecified (05/13/22) Cerebral aneurysm, nonruptured (05/13/22) Subjective Subjective Patient was seen and examined today, she remains on nasal cannula oxygen at this time, I reviewed the patient's cardiology consultation-it was not recommended that the patient be placed on full anticoagulation due to past history of a brain aneurysm. I went over this with the patient and her family. Patient has no complaints of any shortness of breath or chest discomfort at this time of my visit today. Patient's echocardiogram today showed a normal EF. Objective Data Objective Data Vital Signs: Vital Signs Temp Pulse Resp BP Pulse Ox O2 Del Method O2 Flow Rate 99.0 F 72 18 136/59 H 100 Nasal Cannula 2 05/14/22 16:00 05/14/22 16:00 05/14/22 16:00 05/14/22 16:00 05/14/22 16:00 05/14/22 16:00 05/14/22 16:00 Oxygen Flow Rate (L/min) 2 Oxygen Delivery Method Nasal Cannula Weight: 89 kg Body Mass Index (BMI) 31.5 Intake & Output: Intake and Output for Last 24 Hours 05/12/22 05/13/22 05/14/22 23:59 23:59 23:59 Intake Total 240 / 240 240 / 240 Output Total 2400 / 2400 500 / 500 Balance -2160 / -2160 -260 / -260 Lab / Micro Data Result Diagrams: 05/14/22 02:25 05/14/22 02:25 Labs: Laboratory Results - last 24 hr 05/13/22 20:38: Troponin I High Sens 13 05/13/22 22:19: Troponin I High Sens 13 05/14/22 02:25: WBC 9.6, RBC 5.04, Hgb 13.6, Hct 42.3, MCV 83.9, MCH 27.0, MCHC 32.2, RDW Std Deviation 39.6, RDW Coeff of Marissa 13.0, Plt Count 184, MPV 10.3, Immature Gran % (Auto) 0.400, Neut % (Auto) 72.0 H, Lymph % (Auto) 16.4 L, [place] % (Auto) 9.4, Eos % (Auto) 1.5, Baso % (Auto) 0.3, Absolute Neuts (auto) 6.9, Absolute Lymphs (auto) 1.57, Nucleated RBC % 0 05/14/22 02:25: Sodium 140, Potassium 3.4 L, Chloride 100, Carbon Dioxide 32.0, Anion Gap 8, BUN 17, Creatinine 0.78, Estim Creat Clear Calc 42.00, Est GFR (MDRD) Af Amer 91, Est GFR (MDRD) Non-Af 75, BUN/Creatinine Ratio 21.7 H, Glucose 112 H, Calcium 9.2 05/14/22 02:25: Troponin I High Sens 13 Micro: Microbiology 05/13/22 11:45 Nasal Secretion SARS-CoV-2 & FLU Antigen (Rapid) - Final Radiography Diagnostic Testing: Radiology Impression Echocardiogram 05/13/22 17:51 Interpretation Summary Normal LV size. Left ventricular systolic function is lower limits of normal. The estimated ejection fraction is 53 %. Stage 2 diastolic dysfunction. Contrast injection was performed. Ordering Physician: Bob Walter Performed By: Ruben Basilio RCS Rhythm Strip Rhythm Strip: A-fib Rate: 120 Ectopy: None Physical Exam Const alert, oriented x3, no apparent distress and average body habitus General Appearance: cooperative, well kempt and well developed Orientation / Consciousness: awake, oriented to person, oriented to place and oriented to time HEENT normocephalic, head/scalp atraumatic and moist oral mucous membranes Eyes PERRL, EOMs intact bilaterally and conjunctivae normal Neck supple, no JVD, thyroid normal and no carotid bruits General: trachea midline Resp normal respiratory effort, no retractions, no use of accessory muscles and clear to auscultation bilaterally Auscultation: Negative for rales, rhonchi or wheezes Cardio regular rate, regular rhythm, S1 normal heart sound, S2 normal heart sound, no murmurs, no rub and no gallops GI normal to inspection, nondistended, normoactive bowel sounds, soft to palpation, non-tender and non-distended Extremity no clubbing, cyanosis or edema Skin no rashes or lesions noted General Skin Exam: no breakdown Neuro oriented x3, CN's II-XII intact bilaterally, moves all extremities, no focal motor deficits and no sensory deficits noted Sensorium / Orientation: awake, alert, oriented to person and oriented to place Speech: speech normal Psych affect normal Assessment & Plan Assessment/Plan (1) Atrial fibrillation with rapid ventricular response: PLAN: Plan 1. Acute diastolic congestive heart failure-patient is currently receiving IV Lasix, oxygen will be weaned if possible. #2 hypoxia secondary to acute diastolic congestive heart failure-pulse ox will be monitored, oxygen will be titrated off if possible #3 paroxysmal atrial fibrillation with RVR-patient is currently in sinus rhythm at this time, cardiology is participating in her care and has adjusted her medications. #4 uncontrolled hypertension-patient's medications were adjusted by cardiology Total clinical time spent by myself addressing the patient's medical issues, reviewing her data, and collaborating with patient's care team: 35-minutes Charges/Coding Visit Charges Inpatient E&M: 15694 Subs Hosp L2
[2022-05-15] VITALS (12 sets, daily range): BP systolic 116–153; BP diastolic 51–64; PULSE 64–77; RESP 18–22; TEMP 36.7–37.4; O2SAT 88–100; BMI 30.6
[2022-05-15 05:29] LABS: Anion Gap 6 (5-15); BUN 27 mg/dL (7-18); BUN/Creat Ratio 29.2 RATIO (10-20); Calcium,Total 8.6 mg/dL (8.5-10.1); Chloride 99 mmol/L (98-107); Creatinine, Serum 0.93 mg/dL (0.55-1.02); EST Glomerular Filtration Rate 62 mL/min (>60); Est Glom Filt Rate - Afr Amer 75 mL/min (>60); Estimated Creatinine Clearance 45.17 ml/min; Glucose 123 mg/dL (74-106); Potassium 3.6 mmol/L (3.5-5.1); Sodium Level 139 mmol/L (136-145)
--- NOTE | 2022-05-15 06:52 | PN.CARD_ITS ---
Subjective Subjective Patient seen and evaluated. She wants to go home. Objective Data Vital Signs: Vital Signs Temp Pulse Resp BP Pulse Ox O2 Del Method O2 Flow Rate 98.0 F 64 18 129/59 H 97 Room Air 1 05/15/22 03:26 05/15/22 03:26 05/15/22 03:28 05/15/22 03:26 05/15/22 03:28 05/15/22 03:28 05/15/22 03:26 Oxygen Flow Rate (L/min) 1 Oxygen Delivery Method Room Air Weight: 190 lb 11.198 oz Body Mass Index (BMI) 30.6 Intake & Output: Intake and Output for Last 24 Hours 05/13/22 05/14/22 05/15/22 23:59 23:59 23:59 Intake Total 240 / 240 240 / 480 240 / 240 Output Total 2400 / 2400 500 / 858 458 / 458 Balance -2160 / -2160 -260 / -378 -218 / -218 Lab / Micro Data Result Diagrams: 05/14/22 02:25 05/15/22 04:28 Labs: Laboratory Results - last 24 hr 05/15/22 04:28: Sodium 139, Potassium 3.6, Chloride 99, Carbon Dioxide 34.0 H, Anion Gap 6, BUN 27 H, Creatinine 0.93, Estim Creat Clear Calc 45.17, Est GFR (MDRD) Af Amer 75, Est GFR (MDRD) Non-Af 62, BUN/Creatinine Ratio 29.2 H, Glucose 123 H, Calcium 8.6 Rhythm Strip Rhythm Strip: A-fib Rate: 120 Ectopy: None Cardiology Labs/Tests 05/15/22 04:28: Sodium 139, Potassium 3.6, Chloride 99, Carbon Dioxide 34.0 H, Anion Gap 6, BUN 27 H, Creatinine 0.93, Est GFR (MDRD) Af Amer 75, Est GFR (MDRD) Non-Af 62, BUN/Creatinine Ratio 29.2 H, Glucose 123 H, Calcium 8.6 Rhythm: EKG: ECHO: Stress Test: Cardiac Cath: PCI: CT Surgery: Holter monitor: EPS: PPM: CXR: Chest CT Scan: Radiography Diagnostic Testing: Radiology Impression Echocardiogram 05/13/22 17:51 Interpretation Summary Normal LV size. Left ventricular systolic function is lower limits of normal. The estimated ejection fraction is 53 %. Stage 2 diastolic dysfunction. Contrast injection was performed. Ordering Physician: Bob Walter Performed By: Ruben Basilio RCS Physical Exam Const alert, oriented x3, no apparent distress and average body habitus General Appearance: cooperative, well kempt and well developed Orientation / Consciousness: awake, oriented to person, oriented to place and oriented to time HEENT normocephalic, head/scalp atraumatic and moist oral mucous membranes Eyes PERRL, EOMs intact bilaterally and conjunctivae normal Neck supple, no JVD, thyroid normal and no carotid bruits General: trachea midline Resp normal respiratory effort, no retractions, no use of accessory muscles and clear to auscultation bilaterally Auscultation: Negative for rales, rhonchi or wheezes Cardio regular rate, regular rhythm, S1 normal heart sound, S2 normal heart sound, no murmurs, no rub and no gallops GI normal to inspection, nondistended, normoactive bowel sounds, soft to palpation, non-tender and non-distended Extremity no clubbing, cyanosis or edema Skin no rashes or lesions noted General Skin Exam: no breakdown Neuro oriented x3, CN's II-XII intact bilaterally, moves all extremities, no focal motor deficits and no sensory deficits noted Sensorium / Orientation: awake, alert, oriented to person and oriented to place Speech: speech normal Psych affect normal Assessment & Plan Assessment/Plan (1) CHF exacerbation: QUALIFIERS: Heart failure type: unspecified Qualified Code(s): I50.9 - Heart failure, unspecified PLAN: She does appear to have congestive heart failure with exacerbation. This is likely on the basis of her elevated blood pressure as well as the atrial fibrillation. At this particular time I would recommend that we proceed with diuretic management. * Echocardiogram demonstrated overall preserved left ventricular systolic function. We will continue the current medical therapy. (2) Atrial fibrillation with rapid ventricular response: PLAN: She does have atrial fibrillation and presented with a rapid ventricular response rate. She had been on her beta-antelmo. She has now converted back to sinus rhythm. I would recommend that we continue the same. * I will continue the beta-antelmo to 100 mg twice a day. I suspect the congestive heart failure led to some of the rapid ventricular response rate a nd vice versa. I do not think that she is a candidate for anticoagulation based on her previous aneurysmal findings. (3) Severe uncontrolled hypertension: PLAN: She does have severe uncontrolled hypertension. Her blood pressure appears to be much better now since the adjustment of her medications. She can be discharged for outpatient follow-up. Thank you for allowing me to participate in the care of your patient. Please don't hesitate to call if any issues arise.
[2022-05-15] MEDS: Acetaminophen 325 MG Tablet 650 MG PO ×2 (06:53→13:10)
[2022-05-15] MEDS: Furosemide 40 MG Tablet PO (08:31)
[2022-05-15] MEDS: Aspirin E.C. 81 MG Tablet PO (08:31)
[2022-05-15] MEDS: Metoprolol Tartrate 100 MG Tablet PO (08:31)
[2022-05-15] MEDS: Lisinopril 20 MG Tablet PO (08:32)
[2022-05-15] MEDS: Nystatin Powder 15gm Bottle 1 APPLIC TOPICAL (08:32)
--- NOTE | 2022-05-15 10:53 | CASEMGMT ---
Addendum entered by Bertha Gina Beverley 05/15/22 11:34: SW did notify patient and her daughter. Bertha KELLY ANESTHESIA TECHNICIAN Addendum entered by Bertha Gina Beverley 05/15/22 11:17: TCU is able to take patient. [facility] liaison will reach out to [facility]. Bertha KELLY ANESTHESIA TECHNICIAN Addendum entered by Bertha Lowery 05/15/22 10:57: Coretta will review referral and talk with [facility] liaison. Bertha Fuentes Beverleylv JAQUEZ Original Note: EMILY was informed by RN that patient and her family are now changing their mind and would like placement for patient. EMILY met with patient and her daughter. Introduced self and role at [facility]. EMILY asked about d/c plan. Patient's daughter asked if patient could stay at [facility] for her rehab. Per patient's daughter patient's had a Stroke and was here before. EMILY then clarified that [facility] has 2 units Inpatient Rehab which is probably where patient's went since he had a Stroke and there is the Transitional Care Unit. EMILY explained that Inpatient Rehab would be more expensive than TCU. They would like TCU. EMILY let them know SW will check on bed availability and get back with them. EMILY sent a message to Coretta via [employer]. Await response. Bertha Fuentes Beverleylv JAQUEZ
--- NOTE | 2022-05-15 12:01 | VDLE_ITS ---
Reason For Study: Pain RIGHT LEFT GSV is normal. GSV is normal. CFV is compressible, spontaneous, phasic, CFV is compressible, spontaneous, phasic, competent and demonstrates normal competent, and demonstrates normal augmentation. augmentation. FV is compressible, spontaneous, phasic, FV is compressible, spontaneous, phasic, competent and demonstrates normal competent and demonstrates normal augmentation. augmentation. POP V is compressible, spontaneous and POP V is compressible, spontaneous and phasic. phasic. T/P Trunk is compressible. T/P Trunk is compressible. PTV is compressible. PTV is compressible. RT PerV is compressible. LT PerV is compressible. RT Gastrocnemius V is dilated and LT Soleal V is dilated and noncompressible. noncompressible. No flow seen in color or No flow seen in color or pulsed wave doppler. pulsed wave doppler. RT Soleal V is dilated and noncompressible. No flow seen in color or pulsed wave doppler. A non vascularized anechoic structure is noted in Rt pop fossa measuring approximately 6.01cm x 2.17cm. No flow seen in color or pulsed wave doppler. VL/Venous Duplex US - Jared Extrem Interpretation Summary Acute deep venous thrombosis right gastrocnemius and soleus veins. Patent and compressible right great saphenous vein Right popliteal fossa 6.01 x 2.17 cm nonvascular hypoechoic structure consisten t with a Pascual's cyst Acute deep venous thrombosis left soleus vein. Patent and compressible left great saphenous vein Ordering Physician: Myles Du Referring Physician: Aneesh Chang Performed By: Gurjit Fraire RVT
[2022-05-15] MEDS: Ipratropium/Albuterol Sulfate 3 ML AMPUL.NEB INHALATION (13:53)
--- NOTE | 2022-05-15 14:29 | CASEMGMT ---
Patient was approved to go to TCU today. SW notified RN and physician. Plan: [facility] TCU. Bertha JAQUEZ
--- NOTE | 2022-05-15 14:31 | CT_ITS ---
STUDY: CTA CHEST REASON FOR EXAM: Female, 82 years old. VTE, hypoxia RADIATION DOSAGE (If Supplied By Facility): CTDIvol = ( 24.27 ) mGy, DLP = ( 1648.04 ) mGycm TECHNIQUE: The examination was performed with the intravenous administration of IV 100mL Isovue-370. Post-processing of the angiographic images was performed, with multiplanar reformation and 3D reconstruction. Individualized dose optimization techniques were used for this CT. COMPARISON: None. FINDINGS: Normal enhancement of the main pulmonary artery and right and left pulmonary arteries. Normal enhancement of the bilateral peripheral pulmonary arteries. There is no demonstrated pulmonary embolism. There is atherosclerotic calcification of the aortic arch with tortuosity. There is no demonstrated aortic dissection. Normal heart and pericardium. A loop recorder device is seen in the anterior left chest wall. Normal mediastinum. Normal hilar regions. Normal visualized trachea and bronchi. The lungs are well expanded. Normal pulmonary parenchyma. Normal pleura. Normal chest wall structures. There are degenerative changes of thoracic spine. The patient is status post cholecystectomy. CT/CTA Chest W/WO Contrast IMPRESSION: No acute abnormality is seen. Electronically Signed: Wayne Clemons MD at 15:37 EST ,
--- NOTE | 2022-05-15 14:39 | CT_ITS ---
STUDY: CTA NECK WITH CONTRAST REASON FOR EXAM: Female, 82 years old. pe dvt RADIATION DOSAGE (If Supplied By Facility): CTDIvol = ( 24.27 ) mGy, DLP = ( 1648.04 ) mGycm TECHNIQUE: CT angiography with multi-detector data acquisition was performed from the aortic arch to the skull base following intravenous administration of IV 100mL Isovue-370. MIP images were reconstructed from the axial data set. Post-processing of the angiographic images was performed, with multiplanar reformation and 3D reconstruction. Individualized dose optimization techniques were used for this CT. COMPARISON: None. FINDINGS: Heterogeneous changes in both lobes of the thyroid suggestive of pleural borders change. There is evidence of a substernal extension. AORTIC ARCH: Normal visualized aortic arch. Normal origins of the brachiocephalic, left common carotid, and left subclavian arteries. RIGHT CAROTID ARTERIES: Normal right common carotid artery (CCA). Normal right common carotid bulb. There is mild atherosclerotic plaque formation of the origin of the right internal carotid artery with less than 50% cross sectional diameter stenosis. Normal visualized cervical portion of the right internal carotid artery. Normal origin of the right external carotid artery (ECA). LEFT CAROTID ARTERIES: Normal left common carotid artery (CCA). Normal left common carotid bulb. There is moderate atherosclerotic plaque formation of the origin of the left internal carotid artery with an estimated stenosis of 50-69% stenosis. Normal visualized cervical portion of the left internal carotid artery. Normal origin of the left external carotid artery (ECA). VERTEBRAL ARTERIES: There is enhancement within the bilateral vertebral arteries with a small right vertebral artery, and a dominant left vertebral artery. CT/CTA Neck W/WO Contrast IMPRESSION: Calcific plaque at the origin of the left internal carotid artery causing between 50 and 69% narrowing. Electronically Signed: Wayne Clemons MD at 15:43 EST ,
--- NOTE | 2022-05-15 16:15 | PCM.TXEXTCAR ---
Diet Diet Order/Speech Therapy: 05/13/22 18:09 Diet: Cardiac - Heart Healthy Food consistency:: Regular Liquid Consistency:: Regular/Thin Is pt able to select menu?: Yes Routine Orders/Code Status O2 Liters per Minute: 2 O2 Frequency: Continuous Keep PO Greater than or Equal to (%): 90 Therapies Weight Bearing: Full weight bearing (with walker) Physical Therapy: Eval and Treat Occupational Therapy: Eval and Treat Problem/Diagnosis (1) CHF exacerbation: Status: Chronic Code(s): I50.9 - Heart failure, unspecified (2) Atrial fibrillation with rapid ventricular response: Status: Acute Code(s): I48.91 - Unspecified atrial fibrillation (3) Severe uncontrolled hypertension: Status: Acute Code(s): I10 - Essential (primary) hypertension (4) Osteoarthritis of knee: Status: Acute Code(s): M17.9 - Osteoarthritis of knee, unspecified Plan 1. Acute diastolic congestive heart failure-patient is currently receiving p.o. Lasix, oxygen will be weaned if possible. #2 hypoxia secondary to acute diastolic congestive heart failure-pulse ox will be monitored, oxygen will be titrated off if possible, patient is currently on 2 L via nasal cannula #3 paroxysmal atrial fibrillation with RVR-patient is currently in sinus rhythm at this time, cardiology is participating in her care and has adjusted her medications. 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 She was started on Eliquis today, I discussed this with her daughter. #6 left knee pain-probably secondary to osteoarthritis, on examination today, patient did not have a palpable left knee effusion, I will place her on Vicodin for pain, this may help her to be more ambulatory. Total clinical time spent by myself addressing the patient's medical issues, reviewing her data, and collaborating with patient's care team: 35-minutes Allergies/Procedures Done in Hospital Allergies No Known Allergies Allergy (Verified 05/13/22 10:33) Procedures: None Type of Care/Length of Stay Estimated LOS: Convalescent Care Less Than 30 days Type of Care Needed: Skilled Rehab Potential: Good Prognosis: Good Additional Orders/Day of Discharge H&P will serve as current which was dated: 05/13/22 Day of Discharge: 05/15/22 Dietary and Speech Recommendations Dietitian Recommendations/Changes: continue cardiac diet Discharge Plan Admission Admit Date/Time: 05/13/22 15:21 Primary Reason for Your Visit: diastolic congestive heart failure paroxysmal atrial fibrillation, VTE leg Attending Provider: Myles Du Primary Care Provider: Aneesh Chang Consulting Providers: Bob Walter ; Santosh Rooney Discharge Orders/Prescriptions Prescriptions: New acetaminophen 325 mg Tablet 650 mg PO Q6H PRN PRN (Reason: Pain 1-10 Or Fever>100.7) Qty: 0 0RF Eliquis 5 mg Tablet 10 mg PO BID Qty: 0 0RF Rx Instructions: Take for for 13 doses starting 05/16/22, then start 5 mg bid starting 05/22/22 in the evening furosemide 40 mg Tablet 40 mg PO DAILY Qty: 0 0RF metoprolol tartrate 100 mg Tablet 100 mg PO BID Qty: 0 0RF lisinopril 20 mg Tablet 20 mg PO DAILY Qty: 0 0RF nystatin [Nyamyc] 100,000 unit/gram Powder 1 applic topical BID Qty: 0 0RF Protocol: *Topical Application Instructions APPLICATION INSTRUCTIONS: ABD FOLDS AND GROIN Rx Instructions: apply to affected areas hydrocodone-acetaminophen 5-325 mg tablet 1 tab PO Q6H PRN (Reason: pain) 3 Days Qty: 10 0RF Discontinued aspirin [Adult Aspirin Regimen] 81 mg tablet,delayed release (DR/EC) 81 mg PO DAILY azithromycin 250 mg tablet 250 mg PO DAILY metoprolol succinate 100 mg tablet extended release 24 hr 100 mg PO DAILY Label Comments: TAKE ONE TABLET BY MOUTH DAILY Referrals / Follow Up: Jeanie Bolanos MD [Non-Staff] - Aneesh Chang MD [Primary Care Provider] - Disposition Disposition (needs filled in before D/C Order can be placed): Long-Term Facility (1) CHF exacerbation Qualifiers: Heart failure type: unspecified Qualified Code(s): I50.9 - Heart failure, unspecified
[2022-05-15 16:19] LABS: International Normalized Ratio 1.2; Prothrombin Time (Protime)PT. 14.5 SECONDS (11.7-14.9)
[2022-05-15] MEDS: APIXABAN 5 MG TABLET 10 MG PO (16:24)
[2022-05-15] MEDS: HYDROcodone Bitartrate/Apap 5/325 Tablet PO (16:33)
--- NOTE | 2022-05-15 16:44 | PCM.DC.SUM ---
Providers Date of Admission: 05/13/22 Date of Discharge: 05/15/22 Primary Care Physician: Dr. Aneesh Chang MD Consultations 05/13/22 18:08 Consult: Cardiology Routine Consulting Provider: Bob Walter Reason for Consult: afib EMERGENT Consult: No MD Notified: Yes Date Notified: 05/13/22 Time Notified: 15:22 Method of Notification: Text Reason For Visit: AFIB RVR Diagnosis Discharge Diagnosis (1) CHF exacerbation: Status: Chronic Code(s): I50.9 - Heart failure, unspecified Qualifiers: Heart failure type: unspecified Qualified Code(s): I50.9 - Heart failure, unspecified (2) Atrial fibrillation with rapid ventricular response: Status: Acute Code(s): I48.91 - Unspecified atrial fibrillation (3) Severe uncontrolled hypertension: Status: Acute Code(s): I10 - Essential (primary) hypertension (4) Osteoarthritis of knee: Status: Acute Code(s): M17.9 - Osteoarthritis of knee, unspecified Plan 1. Acute diastolic congestive heart failure-patient is currently receiving p.o. Lasix, oxygen will be weaned if possible. #2 hypoxia secondary to acute diastolic congestive heart failure-pulse ox will be monitored, oxygen will be titrated off if possible, patient is currently on 2 L via nasal cannula #3 paroxysmal atrial fibrillation with RVR-patient is currently in sinus rhythm at this time, cardiology is participating in her care and has adjusted her medications. 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 She was started on Eliquis today, I discussed this with her daughter. #6 left knee pain-probably secondary to osteoarthritis, on examination today, patient did not have a palpable left knee effusion, I will place her on Vicodin for pain, this may help her to be more ambulatory. Total clinical time spent by myself addressing the patient's medical issues, reviewing her data, and collaborating with patient's care team: 35-minutes Medications at Discharge Home Medications acetaminophen 325 mg tablet 650 mg PO Q6H PRN PRN Pain 1-10 Or Fever>100.7 #0 tabs 05/15/22 apixaban 5 mg tablet (Eliquis) 10 mg PO BID blood clots in legs 05/15/22 furosemide 40 mg tablet 40 mg PO DAILY water pill/swelling 05/15/22 hydrocodone-acetaminophen 5-325mg 5mg-325mg 1 tab PO Q6H PRN pain 3 days #10 tabs 05/15/22 lisinopril 20 mg tablet 20 mg PO DAILY BP 05/15/22 metoprolol tartrate 100 mg tablet 100 mg PO BID AFIB/BP 05/15/22 nystatin 100,000 unit/gram topical powder (Nyamyc) 1 applic topical BID excoriation to folds 05/15/22 Hospital Course Operations None Procedures 2-D Echocardiogram Summary of Care Provided Minutes Spent on Discharge: 32 Hospital Course: This 82-year-old white female was seen in the emergency room with complaints of shortness of breath. Work-up in the emergency room revealed the patient to be in atrial fibrillation with RVR, she received 1 dose of IV diltiazem. Patient was admitted to PCU for atrial fibrillation with rapid ventricular response, her medications were adjusted, cardiology was consulted and an echocardiogram was performed which showed an EF of 53%. Cardiology did not recommend anticoagulation for the patient because she had a past history of an internal carotid aneurysm a few years ago, this was evaluated at a tertiary hospital and no intervention was performed. Patient was seen by PT and OT, she had significant debility and it was recommended that she go to an extended care facility for short-term rehab services and she consented. Patient's family requested a venous duplex be performed of her lower extremities due to persistent edema in her legs and left knee pain, this venous duplex showed the presence of VTE in the legs bilaterally. Also of note, patient had a CTA of her neck and chest, the CT of her neck did not show any evidence of internal carotid aneurysm. There is no evidence of PE. On 05/15/2022, patient was seen and examined: On examination she appeared in good health and spirits, she does not appear to be in any distress. Vital signs as documented. Skin warm and dry and without overt rashes. Neck without JVD, thyroid appears normal, trachea is midline, neck is supple. Lungs clear, normal air movement was noted. Heart exam notable for regular rhythm, normal sounds and absence of murmurs, rubs or gallops. Abdomen unremarkable and without evidence of organomegaly, masses, or abdominal aortic enlargement, bowel sounds are present in all 4 quadrants, no abdominal tenderness was noted. Extremities nonedematous, no cyanosis was noted, no clubbing was noted. Neuro: Cranial nerves II through XII are grossly intact, no focal motor deficits were noted, sensation to light touch and pinprick is intact, motor exam 5/5 throughout. Psych: Patient is alert and oriented x3, she does not appear anxious or depressed, she does not appear agitated. Patient was discharged in stable condition to TCU on 05/15/2022. Weight / BMI Weight Weight: 86.5 kg Body Mass Index (BMI) 30.6 ABG / Lab / Microbiology Data Result Diagrams: 05/14/22 02:25 05/15/22 04:28 Laboratory: Laboratory Results - last 24 hr 05/15/22 04:28: Sodium 139, Potassium 3.6, Chloride 99, Carbon Dioxide 34.0 H, Anion Gap 6, BUN 27 H, Creatinine 0.93, Estim Creat Clear Calc 45.17, Est GFR (MDRD) Af Amer 75, Est GFR (MDRD) Non-Af 62, BUN/Creatinine Ratio 29.2 H, Glucose 123 H, Calcium 8.6 05/15/22 15:34: PT 14.5, INR 1.2 Microbiology: Microbiology 05/15/22 14:00 Nasal Secretion SARS-CoV-2 Antigen (Rapid) - Final 05/13/22 11:45 Nasal Secretion SARS-CoV-2 & FLU Antigen (Rapid) - Final Radiography Diagnostic Testing: Radiology Impression Venous Doppler Study 05/15/22 12:01 Interpretation Summary Acute deep venous thrombosis right gastrocnemius and soleus veins. Patent and compressible right great saphenous vein Right popliteal fossa 6.01 x 2.17 cm nonvascular hypoechoic structure consistent with a Pascual's cyst Acute deep venous thrombosis left soleus vein. Patent and compressible left great saphenous vein Ordering Physician: Myles Du Referring Physician: Aneesh Chang Performed By: Gurjit Fraire RVT Chest CTA 05/15/22 14:31 IMPRESSION: No acute abnormality is seen. Electronically Signed: Wayne Clemons MD at 15:37 EST , Neck CTA 05/15/22 14:39 IMPRESSION: Calcific plaque at the origin of the left internal carotid artery causing between 50 and 69% narrowing. Electronically Signed: Wayne Clemons MD at 15:43 EST , Meaningful Use Info Meaningful Use Diagnoses (Choose all that apply): CHF CHF DUNIA/ARB ordered at discharge?: Yes Documented LVEF (%): 53 Discharge Plan Admission Admit Date/Time: 05/13/22 15:21 Primary Reason for Your Visit: diastolic congestive heart failure paroxysmal atrial fibrillation, VTE leg Attending Provider: Myles Du Primary Care Provider: Aneesh Chang Consulting Providers: Bob Walter ; Santosh Rooney Discharge Orders/Prescriptions Prescriptions: New acetaminophen 325 mg Tablet 650 mg PO Q6H PRN PRN (Reason: Pain 1-10 Or Fever>100.7) Qty: 0 0RF hydrocodone-acetaminophen 5-325 mg tablet 1 tab PO Q6H PRN (Reason: pain) 3 Days Qty: 10 0RF Discontinued aspirin [Adult Aspirin Regimen] 81 mg tablet,delayed release (DR/EC) 81 mg PO DAILY azithromycin 250 mg tablet 250 mg PO DAILY metoprolol succinate 100 mg tablet extended release 24 hr 100 mg PO DAILY Label Comments: TAKE ONE TABLET BY MOUTH DAILY No Action furosemide 40 mg tablet 40 mg PO DAILY metoprolol tartrate 100 mg tablet 100 mg PO BID lisinopril 20 mg tablet 20 mg PO DAILY nystatin [[facility]] 100,000 unit/gram powder 1 applic topical BID Protocol: *Topical Application Instructions APPLICATION INSTRUCTIONS: ABD FOLDS AND GROIN Rx Instructions: apply to affected areas Eliquis 5 mg tablet 10 mg PO BID Rx Instructions: Take for for 13 doses starting 05/16/22, then start 5 mg bid starting 05/22/22 in the evening Referrals / Follow Up: Jeanie Bolanos MD [Non-Staff] - Aneesh Chang MD [Primary Care Provider] - Disposition Disposition (needs filled in before D/C Order can be placed): Halfway Facility Charges/Coding Visit Charges Inpatient E&M: 63605 Disch Hosp >30min
== END 2022-05-15 17:06 | disposition skilled nursing facility (03) | DRG 291 ==
LOC: ED 13:45 → PCU 15:42
PROVIDERS: Emergency Provider Emergency Medicine; PCP Internal Medicine Infectious Disease; Visit Provider Internal Medicine
DX: I11.0 Hypertensive heart disease with heart failure (principal); I50.33 Acute on chronic diastolic (congestive) heart failure; I82.403 Acute embolism and thrombosis of unspecified deep veins of lower extremity, bilateral; I48.0 Paroxysmal atrial fibrillation; M17.12 Unilateral primary osteoarthritis, left knee; Z79.82 Long term (current) use of aspirin; Z20.822 Contact with and (suspected) exposure to COVID-19; R09.02 Hypoxemia; Z79.899 Other long term (current) drug therapy; Z66 Do not resuscitate; Z86.79 Personal history of other diseases of the circulatory system
CPT/HCPCS: 36415; 70498; 71045; 71275; 80048; 83880; 84484; 85025; 85610; 87426; 87428; 93005; 93306; 93970; 94640; 97162; 97166; 97802; 99285; Q9957; Q9967; A4216; C8929; J1940

== ENCOUNTER 2022-05-15 17:10 | Inpatient (IN) | payer SELFPAY, OTHER ==
[2022-05-15 17:26] VITALS: BP 130/58; PULSE 72; RESP 17; TEMP 35.8; O2SAT 96
[2022-05-15 17:56] VITALS: BMI 31.1
[2022-05-15 19:42] VITALS: PULSE 69
[2022-05-15] MEDS: Metoprolol Tartrate 100 MG Tablet PO (19:42)
[2022-05-15] MEDS: Nystatin Powder 15gm Bottle 1 APPLIC TOPICAL (19:43)
--- NOTE | 2022-05-15 20:07 | HP.PCM_ITS ---
HPI - General General Date of Admission: 05/15/22 Date of Service: 05/15/22 Chief Complaint: Here for rehabilitation. HPI Narrative 05/13/2022 JOCELYNE VILLEDA, is a 82 Female who presents to [facility] Emergency Department with cough. 05/13/2022 EKG atrial fibrillation with rapid ventricular response with premature ventricular or aberrantly conducted complexes, nonspecific ST&T wave abnormality. Cough, Rx Zithromax at urgent care. No improvement, weak, short of breath.. Found down on floor. Short of breath, wheezing, pale. Cardizem IV given for atrial fibrillation with rapid ventricular response. Chest X-ray negative, BNP 635. 05/13/2022 Admit to Hospital. Increase Metoprolol to 50mg twice daily, consult Cardiology for atrial fibrillation with RVR. IV Lasix for congestive heart failure. History of brain aneurysm, hold anticoagulation. 05/13/2022 Echo LVSF lower limits of normal. EF 53%. Stage 2 diastolic dysfunction. 05/14/2022 Oxygen per nasal cannula. Hold anticoagulation due to history of brain aneurysm. IV Lasix for acute diastolic congestive heart failure. Taper oxygen for acute respiratory failure with hypoxia. Atrial fibrillation now in normal sinus rhythm. 05/15/2022 Wants to go home. Dr. Walter recommends Metoprolol 100mg bid for atrial fibrillation. Continue Lasix for acute diastolic congestive heart failure. Doppler ultrasound showed bilateral lower extremity DVT, patient states brain aneurysm resolved. Eliquis started for treatment of bilateral lower extremity DVT. 05/15/2022 Admit to TCU with debility, here for rehabilitation, strengthening, prior to discharge home alone. [facility] Medical History (Updated 05/15/22 @ 20:[address] Gregory Perry MD) Anxiety Brain aneurysm Depression Dizziness Hypertension Severe uncontrolled hypertension Syncope and collapse Home Medications acetaminophen 325 mg tablet 650 mg PO Q6H PRN PRN Pain 1-10 Or Fever>100.7 #0 tabs 05/15/22 [Rx Last Taken Unknown] apixaban 5 mg tablet (Eliquis) 10 mg PO BID blood clots in legs 05/15/22 [History Last Taken Unknown] furosemide 40 mg tablet 40 mg PO DAILY water pill/swelling 05/15/22 [History Last Taken Unknown] hydrocodone-acetaminophen 5-325mg 5mg-325mg 1 tab PO Q6H PRN pain 3 days #10 tabs 05/15/22 [Rx Last Taken Unknown] lisinopril 20 mg tablet 20 mg PO DAILY BP 05/15/22 [History Last Taken Unknown] metoprolol tartrate 100 mg tablet 100 mg PO BID AFIB/BP 05/15/22 [History Last Taken Unknown] nystatin 100,000 unit/gram topical powder (Nyamyc) 1 applic topical BID excoriation to folds 05/15/22 [History Last Taken Unknown] Allergy/AdvReac Type Severity Reaction Status Date / Time No Known Allergies Allergy Verified 05/13/22 10:33 Family History Mother Heart disease Surgical History History of hernia repair Social History (Updated 05/15/22 @ 20:[address] Gregory Perry MD) household members: none Smoking Status: Never smoker alcohol intake: never substance use type: does not use ROS Constitutional Constitutional: Reports weakness; Denies chills, fever(s) or weight gain ENT HEENT: Denies headache(s), nasal congestion or nasal discharge Cardiovascular Cardiovascular: Denies chest pain or palpitations Respiratory/Chest Respiratory/Chest: Denies cough, excessive phlegm production or shortness of breath with exertion Gastrointestinal Gastrointestinal: Denies abdominal pain, nausea or vomiting Genitourinary Genitourinary: Denies dysuria Musculoskeletal Musculoskeletal: Denies joint pain or joint swelling Integumentary Integumentary: Denies rash or wounds Neurologic Neurologic: Denies focal weakness, numbness or tingling Psychiatric Psychiatric: Denies anxiety, auditory hallucinations, depression, homicidal ideation or suicidal ideation Vital Signs Vital Signs Vital Signs: 05/15/22 17:26 05/15/22 19:42 Temperature 96.4 F L Temperature Source Temporal Pulse Rate 72 69 Respiratory Rate 17 Blood Pressure 130/58 H Blood Pressure Mean 82 Blood Pressure Source Monitor Blood Pressure Position Semi-Fowlers Blood Pressure Location Left Arm Pulse Ox 96 Oxygen Delivery Method Nasal Cannula Oxygen Flow Rate (L/min) 2 Weight Weight: 87.362 kg Body Mass Index (BMI) 31.1 Physical Exam Const alert General Appearance: cooperative HEENT normocephalic Eyes PERRL and EOMs intact bilaterally Neck supple, no JVD and no carotid bruits Resp normal respiratory effort, normal air movement and clear to auscultation bi laterally Cardio regular rate and regular rhythm GI normal to inspection, nondistended, normoactive bowel sounds, non-tender and non-distended Extremity normal capillary refill General Extremity: edema bilateral (1+) Skin no rashes or lesions noted General Skin Exam: no breakdown Psych affect normal Appearance: appropriate Assessment & Plan Assessment/Plan (1) Debility: (2) Acute respiratory failure with hypoxia: (3) Atrial fibrillation with rapid ventricular response: (4) Acute on chronic diastolic (congestive) heart failure: (5) DVT, bilateral lower limbs: (6) Hypertension: PLAN: Plan 82 year old female with below past medical history hospitalized for acute respiratory failure with hypoxia secondary to atrial fibrillation with rapid ventricular response, acute on chronic diastolic congestive heart failure, complicated by bilateral lower extremity DVT, admitted to TCU with debility, here for rehabilitation, strengthening, prior to discharge home alone. * Debility - PT/OT. * Pain - Tylenol 1000mg q6h prn pain (1-3), Tramadol 50mg q6h prn pain (4-10). * Bowel - senna/colace 1 tablet bid, Dulcolax 10mg pr x 1 prn, MOM 30ml po x 1 prn. * Adult immunization - Administer pneumonia vaccine, covid19 vaccine, flu vaccine as appropriate. * DVT prophylaxis - Not necessary, already Eliquis. * Bilateral lower extremity DVT - Eliquis 10mg bid x 7 days, then 5mg bid. * Atrial fibrillation - Metoprolol 100mg bid, Eliquis as above, brain aneurysm resolved. * Acute on chronic diastolic congestive heart failure - Metoprolol 100mg bid, Lisinopril 20mg daily, Furosemide 40mg daily thru 05/19/2022. * Tinea Corporis - Nystatin powder topical bid. * Acute respiratory failure with hypoxia - resolved.
[2022-05-15 22:00] VITALS: PULSE 68; RESP 16; O2SAT 96
[2022-05-15] MEDS: Senna/Docusate Sodium 1 Tablet PO (22:23)
[2022-05-16] VITALS (7 sets, daily range): BP systolic 149–158; BP diastolic 59–70; PULSE 66–79; RESP 14–16; TEMP 36.8; O2SAT 96–99
[2022-05-16] MEDS: APIXABAN 5 MG TABLET 10 MG PO ×2 (04:59→17:38)
[2022-05-16] MEDS: Lisinopril 20 MG Tablet PO (04:59)
[2022-05-16] MEDS: Senna/Docusate Sodium 1 Tablet PO ×2 (04:59→17:39)
[2022-05-16] MEDS: Furosemide 40 MG Tablet PO (04:59)
[2022-05-16] MEDS: Nystatin Powder 15gm Bottle 1 APPLIC TOPICAL ×2 (04:59→17:40)
[2022-05-16] MEDS: Metoprolol Tartrate 100 MG Tablet PO ×2 (04:59→17:39)
[2022-05-16 05:34] LABS: Absolute Lymphocyte Count 1.75 X10^3/uL (0.83-4.51); Absolute Neutrophil Count 8.3 X10^3/uL (2.0-7.7); Basophil# 0.03 X10^3/uL; Basophil% 0.3 % (0-1); Eosinophil# 0.13 X10^3/uL; Eosinophils% 1.1 % (0-5); Hematocrit 39.2 % (37-47); Hemoglobin 12.8 g/dL (12.0-15.0); Lymphocyte # 1.75 X10^3/ul (0.83-4.51); Lymphocyte % 15.3 % (19-41); Mean Corp Hgb Conc 32.7 g/dL (32-36); Mean Corpuscular Hgb 27.8 pg (27.0-32.0); Mean Platelet Vol. 10.4 fl (6.2-12.0); Monocyte# 1.16 X10^3/uL; Monocyte% 10.2 % (0-10); NRBC Flagged by Analyzer 0 % (0-5); Neutrophil % 72.7 % (47-70); Platelet Count 181 K/mm3 (150-450); RBC Distribution Width CV 13.2 % (11.6-14.6); RBC Distribution Width SD 41.1 fl (35.1-43.9); Red Blood Count 4.61 M/mm3 (4.2-5.4); White Blood Count 11.4 K/mm3 (4.4-11.0)
[2022-05-16 06:42] LABS: Anion Gap 3 (5-15); BUN 39 mg/dL (7-18); BUN/Creat Ratio 48.3 RATIO (10-20); Calcium,Total 8.9 mg/dL (8.5-10.1); Chloride 99 mmol/L (98-107); Creatinine, Serum 0.81 mg/dL (0.55-1.02); EST Glomerular Filtration Rate 73 mL/min (>60); Est Glom Filt Rate - Afr Amer 88 mL/min (>60); Estimated Creatinine Clearance 51.86 ml/min; Glucose 106 mg/dL (74-106); Potassium 3.4 mmol/L (3.5-5.1); Sodium Level 139 mmol/L (136-145)
[2022-05-16] MEDS: Potassium Chloride Oral Tablet 20 MEQ PO (08:51)
[2022-05-16] MEDS: Tuberculin,Purif.prot.deriv. 50 TU/ML Vial 0.1 ML ID (08:52)
--- NOTE | 2022-05-16 10:03 | PHA.CONS_ITS ---
TCU RX Drug Regimen Review Subjective: 82 YOF admitted to TCU on 05/15/22. The patient was previously admitted to [facility] due to atrial fibrillation with RVR, and subsequent bilateral lower extremity DVT. The patient was admitted to TCU for rehabilitation prior to discharge home where she resides home alone. Objective: Allergies No Known Allergies Allergy (Verified 05/13/22 10:33) Current Medications Generic Name Dose Route Start Last Admin Trade Name Freq PRN Reason Stop Dose Admin Acetaminophen 1,000 mg 05/15/22 20:25 Acetaminophen 500 Mg Tablet PO Q6H PRN PRN Pain Score 1-3 Apixaban 10 mg 05/16/22 06:00 05/16/22 04:59 Apixaban 5 Mg Tablet PO 05/22/22 06:01 10 mg BID ADAM Administration Apixaban 5 mg 05/22/22 18:00 Apixaban 5 Mg Tablet PO BID ADAM Bisacodyl 10 mg 05/15/22 20:24 Bisacodyl 10 Mg Suppository RC X1 PRN CONSTIPATION Furosemide 40 mg 05/16/22 06:00 05/16/22 04:59 Furosemide 40 Mg Tablet PO 05/19/22 06:01 40 mg DAILY ADAM Administration Lisinopril 20 mg 05/16/22 06:00 05/16/22 04:59 Lisinopril 20 Mg Tablet PO 20 mg DAILY ADAM Administration Magnesium Hydroxide 30 ml 05/15/22 20:24 Magnesium Hydroxide 30 Ml Udc PO X1 PRN Constipation Metoprolol Tartrate 100 mg 05/15/22 18:00 05/16/22 04:59 Metoprolol Tartrate 100 Mg Tablet PO 100 mg BID ADAM Administration Nystatin 1 applic 05/15/22 18:00 05/16/22 04:59 Nystatin Powder 15gm Bottle TOPICAL 1 applic BID ADAM Administration Protocol Potassium Chloride 20 meq 05/16/22 08:00 05/16/22 08:51 Potassium Chloride Oral Tablet 20 Meq PO 05/19/22 08:01 20 meq DAILYCM ADAM Administration Senna/Docusate Sodium 1 tablet 05/15/22 20:30 05/16/22 04:59 Senna/Docusate Sodium 1 Tablet PO 1 tablet BID ADAM Administration Sodium Chloride 10 - 40 ml 05/15/22 18:26 0.9% Saline Lock 10 Ml Syringe IV UD PRN SALINE FLUSH Tramadol HCl 50 mg 05/15/22 20:24 Tramadol 50 Mg Tablet PO Q6H PRN PRN Pain Score 4-10 Tuberculin PPD 0.1 ml 05/23/22 10:00 Tuberculin,Purif.Prot.Deriv. 50 Tu/Ml Vial ID 05/23/22 10:01 X1 ONE Problem List (Last Reviewed 05/15/22 @ 20:[address] Gregory Perry MD) Hypertension (Chronic) DVT, bilateral lower limbs (Acute) Acute on chronic diastolic (congestive) heart failure (Chronic) Atrial fibrillation with rapid ventricular response (Acute) Acute respiratory failure with hypoxia (Acute) Debility (Acute) Vital Signs Temp Pulse Resp BP Pulse Ox O2 Del Method O2 Flow Rate 96.4 F L 72 16 155/64 H 99 Nasal Cannula 2 05/15/22 17:26 05/16/22 04:59 05/15/22 22:00 05/16/22 04:59 05/16/22 08:37 05/15/22 22:00 05/16/22 08:37 Oxygen Flow Rate (L/min) 2 Oxygen Delivery Method Nasal Cannula Weight: 87.362 kg Body Mass Index (BMI) 31.1 Sodium 139 mmol/L (136-145) 05/16/22 05:15 Potassium 3.4 mmol/L (3.5-5.1) L 05/16/22 05:15 Chloride 99 mmol/L (98-107) 05/16/22 05:15 Carbon Dioxide 37.0 mmol/L (21.0-32.0) H 05/16/22 05:15 Anion Gap 3 (5-15) L 05/16/22 05:15 BUN 39 mg/dL (7-18) H 05/16/22 05:15 Creatinine 0.81 mg/dL (0.55-1.02) 05/16/22 05:15 Est GFR (MDRD) Af Amer 88 mL/min (>60) 05/16/22 05:15 Est GFR (MDRD) Non-Af 73 mL/min (>60) 05/16/22 05:15 BUN/Creatinine Ratio 48.3 RATIO (10-20) H 05/16/22 05:15 Glucose 106 mg/dL (74-106) 05/16/22 05:15 Assessment/Plan: 1. Pain: Tylenol 1000mg PO Q6h PRN Pain 1-3, Tramadol 50mg PO Q6h PRN Pain 4-10. Please continue to monitor for increased/decreased S/S pain, PRN medication usage, oversedation/respiratory depression with tramadol use. - To date, the patient has not required any PRN medication doses. It appears the patient's pain is being managed at this time. 2. Bilateral LE DVT: Eliquis 10mg PO BID thru 05/22/22, then 5mg PO BID thereafter. Please continue to monitor H/H (Hgb 12.8, HCt 39.2 on 05/16), S/S bleeding and/or bruising. 3. Atrial Fibrillation: Lopressor 100mg PO BID, Eliquis (see dosing above): Please continue to monitor BP (range 130-155/58-64), pulse (range 68-72). 4. CHF: Lasix 40mg PO Daily thru 05/19/22, Lisinopril 20mg PO Daily, Lopressor 100mg PO BID, KCl 20mEq PO Daily thru 05/19/22. Please continue to monitor BP, pulse, electrolytes (stable on labs 05/16), I/O, dietary fluid and salt intake. 5. Skin Integrity: Nystatin 1 application topically BID. Please continue to monitor for skin infections, skin redness/irritation. 6. Bowel: Senna/Docusate 1 tab PO BID, Dulcolax 10mg VT x1 PRN, MOM 30mL PO x1 PRN. Please continue to monitor for increased/decreased constipation and/or diarrhea. - To date, the patient has not had a documented bowel movement. Please continue to monitor and consider administering PRN medications if the patient does not have a bowel movement in the next 48hrs, thank you. Assessment/Plan for indications treated with psychotropic medications: -The patient is not currently taking any psychotropic medications at this time. Medical chart and medication regimen reviewed. The following medication irregu larities or issues were identified: -No medication irregularities were identified at this time. Date of Note:: 05/16/22
--- NOTE | 2022-05-16 14:58 | CASEMGMT ---
Social Work Prior to meeting pt, OT reported pt expressed tragedy of grandson and not to speak about it in front of daughter. SW met with patient to complete initial assessment. Dtr present in room. SW requested dtr to step out for assessment d/t routine protocol. Dtr complied. SW spoke with pt. Pt has new O2. Educated to [facility] [employer] and collaborating with [facility] Liaison for DC needs. Discussed code status and MOLST form. Pt wishes to be DNR-CCA, no intubation. Pt has bracelet placed but order not updated. SW notified nursing. MOLST placed in Dr folder. Pt's goal is to return home with dtr's assistance. Pt explained story of 's and grandson's prior to SW prompting. SW provided emotional support. Pt denies any issues, triggers, and coping well. SW explored coping mechanisms. Pt enjoys reading and relies on Madalyn. SW offered supportive visits if needed during stay. Pt expressed understanding. SW to continue to follow for DC planning. Karly Guerrier, COCKTAIL LOUNGE MANAGER CLINICAL LABORATORY TECHNOLOGIST
[2022-05-16] MEDS: traMADol 50 MG Tablet PO (17:39)
[2022-05-16] MEDS: 0.9% Saline Lock 10 ML Syringe IV (18:39)
[2022-05-17] MEDS: Acetaminophen 500 MG Tablet 1000 MG PO (00:48)
[2022-05-17 00:50] VITALS: PULSE 75; RESP 16; O2SAT 98
[2022-05-17] MEDS: Magnesium Hydroxide 30 ML UDC PO (05:30)
[2022-05-17 05:39] VITALS: BP 135/61; PULSE 72
[2022-05-17] MEDS: Lisinopril 20 MG Tablet PO (05:39)
[2022-05-17] MEDS: Senna/Docusate Sodium 1 Tablet PO ×2 (05:39→18:10)
[2022-05-17] MEDS: Metoprolol Tartrate 100 MG Tablet PO ×2 (05:39→18:10)
[2022-05-17] MEDS: Furosemide 40 MG Tablet PO (05:39)
[2022-05-17] MEDS: APIXABAN 5 MG TABLET 10 MG PO ×2 (05:39→18:09)
[2022-05-17] MEDS: Nystatin Powder 15gm Bottle 1 APPLIC TOPICAL ×2 (05:40→18:13)
[2022-05-17 09:08] VITALS: O2SAT 97
[2022-05-17] MEDS: Potassium Chloride Oral Tablet 20 MEQ PO (09:15)
[2022-05-17 14:00] VITALS: BP 125/50; PULSE 74; RESP 16; TEMP 36.5; O2SAT 16
[2022-05-17 18:10] VITALS: BP 125/60; PULSE 96
[2022-05-17] MEDS: traMADol 50 MG Tablet PO (18:15)
[2022-05-18] MEDS: traMADol 50 MG Tablet PO ×3 (00:58→18:40)
[2022-05-18] MEDS: Nystatin Powder 15gm Bottle 1 APPLIC TOPICAL ×2 (04:40→18:36)
[2022-05-18 04:41] VITALS: BP 125/59; PULSE 78
[2022-05-18] MEDS: APIXABAN 5 MG TABLET 10 MG PO ×2 (04:41→18:35)
[2022-05-18] MEDS: Metoprolol Tartrate 100 MG Tablet PO ×2 (04:41→18:35)
[2022-05-18] MEDS: Senna/Docusate Sodium 1 Tablet PO ×2 (04:42→18:36)
[2022-05-18] MEDS: Furosemide 40 MG Tablet PO (04:42)
[2022-05-18] MEDS: Lisinopril 20 MG Tablet PO (04:42)
[2022-05-18] MEDS: Potassium Chloride Oral Tablet 20 MEQ PO (08:22)
[2022-05-18 08:37] LABS: Anion Gap 3 (5-15); BUN 35 mg/dL (7-18); BUN/Creat Ratio 50.7 RATIO (10-20); Calcium,Total 8.8 mg/dL (8.5-10.1); Chloride 98 mmol/L (98-107); Creatinine, Serum 0.69 mg/dL (0.55-1.02); EST Glomerular Filtration Rate 87 mL/min (>60); Est Glom Filt Rate - Afr Amer 105 mL/min (>60); Glucose 125 mg/dL (74-106); Sodium Level 136 mmol/L (136-145)
[2022-05-18 10:45] VITALS: RESP 18
[2022-05-18 14:00] VITALS: BP 156/53; PULSE 85; RESP 18; TEMP 37.2; O2SAT 90
[2022-05-18 18:35] VITALS: PULSE 84
[2022-05-19] MEDS: traMADol 50 MG Tablet PO ×3 (05:13→19:58)
[2022-05-19 05:14] VITALS: BP 167/72; PULSE 80
[2022-05-19] MEDS: Metoprolol Tartrate 100 MG Tablet PO ×2 (05:14→18:34)
[2022-05-19] MEDS: Senna/Docusate Sodium 1 Tablet PO ×2 (05:14→18:35)
[2022-05-19] MEDS: Furosemide 40 MG Tablet PO (05:14)
[2022-05-19] MEDS: APIXABAN 5 MG TABLET 10 MG PO ×2 (05:14→18:33)
[2022-05-19] MEDS: Nystatin Powder 15gm Bottle 1 APPLIC TOPICAL ×2 (05:15→18:36)
[2022-05-19] MEDS: Lisinopril 20 MG Tablet PO (05:15)
[2022-05-19 05:41] VITALS: BP 167/72; PULSE 80; RESP 16; TEMP 36.5; O2SAT 94
[2022-05-19] MEDS: Potassium Chloride Oral Tablet 20 MEQ PO (09:08)
[2022-05-19] MEDS: Acetaminophen 500 MG Tablet 1000 MG PO ×2 (09:11→23:56)
[2022-05-19 14:00] VITALS: BP 130/53; PULSE 73; RESP 14; TEMP 35.6; O2SAT 92
[2022-05-19 18:34] VITALS: BP 130/53; PULSE 73
[2022-05-19 20:30] VITALS: O2SAT 92
[2022-05-20] MEDS: Nystatin Powder 15gm Bottle 1 APPLIC TOPICAL ×2 (05:55→17:13)
[2022-05-20 05:56] VITALS: BP 157/81; PULSE 70
[2022-05-20] MEDS: Metoprolol Tartrate 100 MG Tablet PO ×2 (05:56→17:10)
[2022-05-20] MEDS: Senna/Docusate Sodium 1 Tablet PO ×2 (05:56→17:11)
[2022-05-20] MEDS: APIXABAN 5 MG TABLET 10 MG PO ×2 (05:56→17:11)
[2022-05-20] MEDS: Lisinopril 20 MG Tablet PO (05:56)
[2022-05-20] MEDS: traMADol 50 MG Tablet PO ×2 (06:01→21:03)
[2022-05-20 09:52] VITALS: O2SAT 98
[2022-05-20 10:13] VITALS: O2SAT 97
[2022-05-20] MEDS: Arthritis Pain Compound 60 CLICK TUBE TOPICAL ×2 (13:28→17:12)
[2022-05-20] MEDS: Acetaminophen 500 MG Tablet 1000 MG PO ×2 (13:39→21:03)
[2022-05-20 14:00] VITALS: BP 135/54; PULSE 73; RESP 14; TEMP 36.2; O2SAT 92
--- NOTE | 2022-05-20 14:19 | NURSING ---
COVID 19 booster offered and education provided, resident does not want at this time.
--- NOTE | 2022-05-20 16:35 | CHAPLAIN ---
Type of Pastoral Visit _x__ Initial Visit ___ Follow-up Visit ___ On-call Visit ___ General Patient Visit ___ Spiritual Assessment ___ Family Conference ___ Bereavement ___ Rapid Response ___ Code Blue ___ Other (describe below) Pastoral Care Referral From _x__ Patient ___ Family ___ Nurse ___ Physician ___ Yard Labor Supervisor ___ Locomotive Electrician ___ Other (describe below) Sacrament/Intervention _x__ Active listening ___ Anointing ___ Taoism ___ Bereavement ___ Communion ___ Madalyn exploration ___ _x__ Life review _x__ Prayer ___ Reconciliation ___ Sacrament of Sick _x__ Supportive presence ___ Wedding ___ Other (describe below) Pastoral Comments patient was previously met in PCU; pt reports progress slow but sure; pt talks some about the losses in the family in recent months; pt has supportive family; pt also discusses the weather and hospital observances; pt welcomes prayer
[2022-05-20 17:10] VITALS: PULSE 73
[2022-05-21] MEDS: APIXABAN 5 MG TABLET 10 MG PO ×2 (05:34→18:29)
[2022-05-21] MEDS: Lisinopril 20 MG Tablet PO (05:34)
[2022-05-21 05:35] VITALS: BP 160/68; PULSE 84
[2022-05-21] MEDS: Acetaminophen 500 MG Tablet 1000 MG PO ×3 (05:35→20:25)
[2022-05-21] MEDS: Metoprolol Tartrate 100 MG Tablet PO ×2 (05:35→18:30)
[2022-05-21] MEDS: Senna/Docusate Sodium 1 Tablet PO ×2 (05:35→18:30)
[2022-05-21] MEDS: Arthritis Pain Compound 60 CLICK TUBE TOPICAL ×2 (05:36→18:29)
[2022-05-21] MEDS: Nystatin Powder 15gm Bottle 1 APPLIC TOPICAL ×2 (05:38→18:30)
[2022-05-21 07:50] VITALS: O2SAT 92
[2022-05-21 14:00] VITALS: PULSE 73; RESP 16; TEMP 36.3; O2SAT 92
[2022-05-21 14:39] VITALS: BP 167/81; PULSE 70; RESP 18; TEMP 36.4; O2SAT 93
--- NOTE | 2022-05-21 16:43 | CASEMGMT ---
Social Work BIMS (12/29) and PHQ-9 (01/10) completed for MDS assessment. SW explored positive responses. Pt reports to trouble sleeping, then feeling tired, poor appetite, and moving slower than usual. SW offered medication management, if Dr approved, to assist with treating complaints. Pt agreeable. SW left written communication for . SW provided supportive listening and emotional support. Karly Guerrier, CASTING SORTER METAL FRAMER
[2022-05-21 18:30] VITALS: BP 152/63; PULSE 74
[2022-05-21] MEDS: traMADol 50 MG Tablet PO (18:35)
[2022-05-21] MEDS: Mirtazapine 15 MG Tablet 7.5 MG PO (20:25)
--- NOTE | 2022-05-21 20:27 | NURSING ---
Per patient request HS meds given at this time.
[2022-05-22] MEDS: Senna/Docusate Sodium 1 Tablet PO (05:01)
[2022-05-22] MEDS: Lisinopril 20 MG Tablet PO ×2 (05:01→17:38)
[2022-05-22] MEDS: APIXABAN 5 MG TABLET 10 MG PO (05:01)
[2022-05-22 05:07] VITALS: BP 178/80; PULSE 72
[2022-05-22] MEDS: Metoprolol Tartrate 100 MG Tablet PO ×2 (05:07→17:34)
[2022-05-22] MEDS: Acetaminophen 500 MG Tablet 1000 MG PO ×3 (05:07→20:40)
[2022-05-22] MEDS: Nystatin Powder 15gm Bottle 1 APPLIC TOPICAL ×2 (05:08→20:35)
[2022-05-22] MEDS: Arthritis Pain Compound 60 CLICK TUBE TOPICAL ×2 (05:08→17:34)
[2022-05-22 07:55] VITALS: O2SAT 93
--- NOTE | 2022-05-22 12:08 | CASEMGMT ---
Plan of care meeting held in pt room with pt and 7 family members present. Pt and family updated on progress with PT/OT/ST. Pt invited to come in for family training and different family members plan to come in for training throughout the week. Pt lives at home with her daughter. Dgt states that family feels they can care for pt at home if pt is 1 assist. Currently pt is Mod A x2 for transfers and ambulation. Family, pt and IDT are agreeable to continued stay at this time for improvement with functional ability. Family states if pt should need DME, they have a resource to obtain needed items. After team meeting, EMILY spoke with [place], and updated on pt progress and determination for continued stay in TCU. Hillary states she will reach out to the [facility] and update on status and request continued stay. Plan of care to continue at this time. SW to continue to follow for discharge planning. BOBO Asif
[2022-05-22 14:00] VITALS: BP 131/76; PULSE 69; RESP 18; TEMP 36.7; O2SAT 94
[2022-05-22 17:34] VITALS: PULSE 69
[2022-05-22] MEDS: APIXABAN 5 MG TABLET PO (17:34)
[2022-05-22 20:40] VITALS: PULSE 70; RESP 16; O2SAT 97
[2022-05-22] MEDS: Mirtazapine 15 MG Tablet 7.5 MG PO (20:43)
[2022-05-23 05:33] LABS: Absolute Lymphocyte Count 1.85 X10^3/uL (0.83-4.51); Absolute Neutrophil Count 5.4 X10^3/uL (2.0-7.7); Basophil# 0.06 X10^3/uL; Basophil% 0.7 % (0-1); Eosinophil# 0.28 X10^3/uL; Eosinophils% 3.2 % (0-5); Hemoglobin 13.7 g/dL (12.0-15.0); Lymphocyte # 1.85 X10^3/ul (0.83-4.51); Lymphocyte % 21.5 % (19-41); Mean Corp Hgb Conc 32.6 g/dL (32-36); Mean Corpuscular Hgb 27.1 pg (27.0-32.0); Mean Corpuscular Volume 83.2 fL (81-99); Mean Platelet Vol. 9.8 fl (6.2-12.0); Monocyte# 0.99 X10^3/uL; Monocyte% 11.5 % (0-10); NRBC Flagged by Analyzer 0 % (0-5); Neutrophil # 5.38 X10^3/uL (2.7-7.7); Neutrophil % 62.4 % (47-70); Platelet Count 281 K/mm3 (150-450); RBC Distribution Width CV 12.6 % (11.6-14.6); RBC Distribution Width SD 38.4 fl (35.1-43.9); Red Blood Count 5.05 M/mm3 (4.2-5.4); White Blood Count 8.6 K/mm3 (4.4-11.0)
[2022-05-23 06:07] LABS: Anion Gap 7 (5-15); BUN 18 mg/dL (7-18); BUN/Creat Ratio 24.5 RATIO (10-20); Calcium,Total 9.3 mg/dL (8.5-10.1); Chloride 103 mmol/L (98-107); Creatinine, Serum 0.74 mg/dL (0.55-1.02); EST Glomerular Filtration Rate 81 mL/min (>60); Est Glom Filt Rate - Afr Amer 98 mL/min (>60); Glucose 105 mg/dL (74-106); Sodium Level 140 mmol/L (136-145)
[2022-05-23] MEDS: Acetaminophen 500 MG Tablet 1000 MG PO ×3 (06:13→22:09)
[2022-05-23] MEDS: APIXABAN 5 MG TABLET PO ×2 (06:14→17:10)
[2022-05-23] MEDS: Senna/Docusate Sodium 1 Tablet PO ×2 (06:14→17:11)
[2022-05-23] MEDS: Nystatin Powder 15gm Bottle 1 APPLIC TOPICAL ×2 (06:14→17:14)
[2022-05-23] MEDS: Lisinopril 20 MG Tablet PO (06:14)
[2022-05-23] MEDS: Arthritis Pain Compound 60 CLICK TUBE TOPICAL ×2 (06:15→17:12)
[2022-05-23 06:22] VITALS: BP 188/90; PULSE 80
[2022-05-23] MEDS: Metoprolol Tartrate 100 MG Tablet PO ×2 (06:22→17:11)
[2022-05-23 06:59] VITALS: O2SAT 93
[2022-05-23] MEDS: Losartan Potassium 100 MG Tablet PO (08:36)
[2022-05-23] MEDS: Tuberculin,Purif.prot.deriv. 50 TU/ML Vial 0.1 ML ID (09:43)
[2022-05-23] MEDS: traMADol 50 MG Tablet PO ×2 (11:12→22:03)
[2022-05-23 14:00] VITALS: BP 157/68; PULSE 70; RESP 17; TEMP 36.7; O2SAT 95
[2022-05-23 17:11] VITALS: PULSE 78
[2022-05-23] MEDS: amLODIPine 5 MG Tablet PO (22:04)
[2022-05-23] MEDS: Mirtazapine 15 MG Tablet 7.5 MG PO (22:05)
[2022-05-23 22:12] VITALS: BP 142/63; PULSE 59; RESP 18; O2SAT 97
[2022-05-24] MEDS: Arthritis Pain Compound 60 CLICK TUBE TOPICAL (04:59)
[2022-05-24 05:00] VITALS: BP 150/69; PULSE 65
[2022-05-24] MEDS: APIXABAN 5 MG TABLET PO ×2 (05:00→18:06)
[2022-05-24] MEDS: Metoprolol Tartrate 100 MG Tablet PO ×2 (05:00→18:06)
[2022-05-24] MEDS: Acetaminophen 500 MG Tablet 1000 MG PO ×3 (05:00→22:19)
[2022-05-24] MEDS: Senna/Docusate Sodium 1 Tablet PO (05:00)
[2022-05-24] MEDS: Losartan Potassium 100 MG Tablet PO (05:00)
[2022-05-24] MEDS: Nystatin Powder 15gm Bottle 1 APPLIC TOPICAL ×2 (05:00→18:07)
[2022-05-24 05:04] VITALS: BP 150/69; PULSE 65; RESP 16
[2022-05-24 07:45] VITALS: O2SAT 94
--- NOTE | 2022-05-24 13:00 | NURSING ---
Break And Load Operator Note; MDS for 05/23/2022 Complete
[2022-05-24 16:05] VITALS: BP 132/59; PULSE 69; RESP 14; TEMP 36.2; O2SAT 95
[2022-05-24 18:06] VITALS: PULSE 70
[2022-05-24] MEDS: Mirtazapine 15 MG Tablet 7.5 MG PO (22:19)
[2022-05-24] MEDS: amLODIPine 10 MG Tablet PO (22:19)
[2022-05-24 22:38] VITALS: RESP 16
[2022-05-25 05:48] VITALS: BP 178/72; PULSE 79
[2022-05-25] MEDS: APIXABAN 5 MG TABLET PO ×2 (05:48→17:28)
[2022-05-25] MEDS: Acetaminophen 500 MG Tablet 1000 MG PO ×2 (05:48→14:29)
[2022-05-25] MEDS: Senna/Docusate Sodium 1 Tablet PO (05:48)
[2022-05-25] MEDS: Metoprolol Tartrate 100 MG Tablet PO ×2 (05:48→17:27)
[2022-05-25] MEDS: Losartan Potassium 100 MG Tablet PO (05:49)
[2022-05-25] MEDS: Nystatin Powder 15gm Bottle 1 APPLIC TOPICAL ×2 (05:50→17:30)
[2022-05-25] MEDS: Arthritis Pain Compound 60 CLICK TUBE TOPICAL ×2 (05:52→17:28)
[2022-05-25 09:19] VITALS: PULSE 64; RESP 18; O2SAT 98
[2022-05-25 14:00] VITALS: BP 141/62; PULSE 71; RESP 17; TEMP 36.3; O2SAT 96
[2022-05-25 17:27] VITALS: PULSE 71
[2022-05-25 21:08] VITALS: BP 139/49; PULSE 67
[2022-05-25] MEDS: Mirtazapine 15 MG Tablet 7.5 MG PO (21:15)
[2022-05-25] MEDS: traMADol 50 MG Tablet PO (21:15)
[2022-05-25] MEDS: amLODIPine 10 MG Tablet PO (21:15)
[2022-05-26] MEDS: Losartan Potassium 100 MG Tablet PO (05:33)
[2022-05-26] MEDS: APIXABAN 5 MG TABLET PO ×2 (05:33→17:25)
[2022-05-26] MEDS: Acetaminophen 500 MG Tablet 1000 MG PO ×3 (05:33→21:26)
[2022-05-26 05:34] VITALS: BP 171/68; PULSE 78
[2022-05-26] MEDS: Senna/Docusate Sodium 1 Tablet PO ×2 (05:34→17:25)
[2022-05-26] MEDS: Nystatin Powder 15gm Bottle 1 APPLIC TOPICAL ×2 (05:34→17:26)
[2022-05-26] MEDS: Metoprolol Tartrate 100 MG Tablet PO ×2 (05:34→17:25)
[2022-05-26] MEDS: Arthritis Pain Compound 60 CLICK TUBE TOPICAL ×2 (05:41→17:26)
[2022-05-26 14:00] VITALS: BP 147/60; PULSE 74; RESP 19; TEMP 36.4; O2SAT 97
[2022-05-26 17:25] VITALS: PULSE 74
[2022-05-26 20:00] VITALS: PULSE 72; RESP 16; O2SAT 93
[2022-05-26] MEDS: MELATONIN 10 MG TABLET PO (21:26)
[2022-05-26] MEDS: amLODIPine 10 MG Tablet PO (21:26)
[2022-05-26] MEDS: Mirtazapine 15 MG Tablet 7.5 MG PO (21:26)
[2022-05-27] MEDS: APIXABAN 5 MG TABLET PO ×2 (05:21→17:38)
[2022-05-27] MEDS: Arthritis Pain Compound 60 CLICK TUBE TOPICAL ×2 (05:21→17:38)
[2022-05-27 05:22] VITALS: BP 155/61; PULSE 68
[2022-05-27] MEDS: Nystatin Powder 15gm Bottle 1 APPLIC TOPICAL ×2 (05:22→17:39)
[2022-05-27] MEDS: Losartan Potassium 100 MG Tablet PO (05:22)
[2022-05-27] MEDS: Senna/Docusate Sodium 1 Tablet PO (05:22)
[2022-05-27] MEDS: Metoprolol Tartrate 100 MG Tablet PO ×2 (05:22→17:38)
[2022-05-27] MEDS: Acetaminophen 500 MG Tablet 1000 MG PO ×3 (05:24→21:02)
[2022-05-27 09:01] VITALS: PULSE 67; RESP 16
--- NOTE | 2022-05-27 09:44 | MDS.RN ---
Information for the mds was obtained from review of the clinical record, interview of resident, staff, and direct observation of resident's care.
[2022-05-27 14:00] VITALS: BP 110/56; PULSE 86; RESP 16; TEMP 36.2; O2SAT 97
[2022-05-27 17:38] VITALS: PULSE 86
[2022-05-27] MEDS: Mirtazapine 15 MG Tablet 7.5 MG PO (21:00)
[2022-05-27] MEDS: MELATONIN 10 MG TABLET PO (21:02)
[2022-05-27] MEDS: amLODIPine 10 MG Tablet PO (21:02)
[2022-05-28] MEDS: Losartan Potassium 100 MG Tablet PO (05:46)
[2022-05-28 05:47] VITALS: BP 163/68; PULSE 68
[2022-05-28] MEDS: Arthritis Pain Compound 60 CLICK TUBE TOPICAL ×2 (05:47→18:40)
[2022-05-28] MEDS: Nystatin Powder 15gm Bottle 1 APPLIC TOPICAL ×2 (05:47→18:40)
[2022-05-28] MEDS: Metoprolol Tartrate 100 MG Tablet PO ×2 (05:47→18:45)
[2022-05-28] MEDS: APIXABAN 5 MG TABLET PO ×2 (05:47→18:41)
[2022-05-28] MEDS: Acetaminophen 500 MG Tablet 1000 MG PO ×3 (05:48→21:26)
[2022-05-28 11:02] VITALS: BMI 30.8
[2022-05-28 14:00] VITALS: BP 134/62; PULSE 77; RESP 20; TEMP 36; O2SAT 94
[2022-05-28] MEDS: Senna/Docusate Sodium 1 Tablet PO (18:42)
[2022-05-28 18:45] VITALS: BP 148/59; PULSE 74
[2022-05-28] MEDS: Mirtazapine 15 MG Tablet 7.5 MG PO (21:23)
[2022-05-28] MEDS: MELATONIN 10 MG TABLET PO (21:24)
[2022-05-28] MEDS: amLODIPine 10 MG Tablet PO (21:24)
[2022-05-28 21:48] VITALS: PULSE 73; RESP 16; O2SAT 96
[2022-05-29] MEDS: Acetaminophen 500 MG Tablet 1000 MG PO ×3 (04:49→20:51)
[2022-05-29 04:50] VITALS: BP 151/84; PULSE 80
[2022-05-29] MEDS: APIXABAN 5 MG TABLET PO ×2 (04:50→17:38)
[2022-05-29] MEDS: Losartan Potassium 100 MG Tablet PO (04:50)
[2022-05-29] MEDS: Metoprolol Tartrate 100 MG Tablet PO ×2 (04:50→17:43)
[2022-05-29] MEDS: Nystatin Powder 15gm Bottle 1 APPLIC TOPICAL (04:51)
[2022-05-29] MEDS: Senna/Docusate Sodium 1 Tablet PO (04:51)
[2022-05-29] MEDS: Arthritis Pain Compound 60 CLICK TUBE TOPICAL ×2 (04:51→17:35)
[2022-05-29 07:42] VITALS: BP 152/70; PULSE 62; RESP 16; TEMP 36.3; O2SAT 94
[2022-05-29 17:43] VITALS: BP 156/58; PULSE 65
[2022-05-29] MEDS: MELATONIN 10 MG TABLET PO (20:47)
[2022-05-29] MEDS: amLODIPine 10 MG Tablet PO (20:47)
[2022-05-29] MEDS: Mirtazapine 15 MG Tablet 7.5 MG PO (20:48)
[2022-05-29 22:32] VITALS: BP 164/65; PULSE 70
[2022-05-29] MEDS: hydrALAZINE 25 MG Tablet PO (22:32)
[2022-05-30] VITALS (7 sets, daily range): BP systolic 126–145; BP diastolic 52–63; PULSE 66–82; RESP 14–16; TEMP 36.6; O2SAT 96
[2022-05-30] MEDS: Arthritis Pain Compound 60 CLICK TUBE TOPICAL ×2 (05:02→16:44)
[2022-05-30] MEDS: Losartan Potassium 100 MG Tablet PO (05:03)
[2022-05-30] MEDS: APIXABAN 5 MG TABLET PO ×2 (05:03→16:44)
[2022-05-30] MEDS: Nystatin Powder 15gm Bottle 1 APPLIC TOPICAL ×2 (05:03→16:45)
[2022-05-30] MEDS: Acetaminophen 500 MG Tablet 1000 MG PO ×3 (05:04→21:04)
[2022-05-30] MEDS: hydrALAZINE 25 MG Tablet PO ×3 (05:05→21:07)
[2022-05-30] MEDS: Metoprolol Tartrate 100 MG Tablet PO ×2 (05:05→16:44)
[2022-05-30 05:49] LABS: Absolute Lymphocyte Count 2.05 X10^3/uL (0.83-4.51); Absolute Neutrophil Count 4.7 X10^3/uL (2.0-7.7); Basophil# 0.05 X10^3/uL; Basophil% 0.6 % (0-1); Eosinophil# 0.28 X10^3/uL; Eosinophils% 3.5 % (0-5); Hematocrit 40.2 % (37-47); Hemoglobin 13.2 g/dL (12.0-15.0); Lymphocyte # 2.05 X10^3/ul (0.83-4.51); Lymphocyte % 25.4 % (19-41); Mean Corp Hgb Conc 32.8 g/dL (32-36); Mean Corpuscular Volume 85.2 fL (81-99); Mean Platelet Vol. 9.9 fl (6.2-12.0); Monocyte# 0.95 X10^3/uL; Monocyte% 11.8 % (0-10); NRBC Flagged by Analyzer 0 % (0-5); Neutrophil # 4.71 X10^3/uL (2.7-7.7); Neutrophil % 58.2 % (47-70); Platelet Count 232 K/mm3 (150-450); RBC Distribution Width CV 13.1 % (11.6-14.6); RBC Distribution Width SD 40.8 fl (35.1-43.9); Red Blood Count 4.72 M/mm3 (4.2-5.4); White Blood Count 8.1 K/mm3 (4.4-11.0)
[2022-05-30 06:18] LABS: Anion Gap 5 (5-15); BUN 22 mg/dL (7-18); BUN/Creat Ratio 30.1 RATIO (10-20); Calcium,Total 8.7 mg/dL (8.5-10.1); Chloride 106 mmol/L (98-107); Creatinine, Serum 0.73 mg/dL (0.55-1.02); EST Glomerular Filtration Rate 81 mL/min (>60); Est Glom Filt Rate - Afr Amer 98 mL/min (>60); Glucose 103 mg/dL (74-106); Sodium Level 141 mmol/L (136-145)
[2022-05-30] MEDS: Senna/Docusate Sodium 1 Tablet PO (16:45)
[2022-05-30] MEDS: amLODIPine 10 MG Tablet PO (21:07)
[2022-05-30] MEDS: Mirtazapine 15 MG Tablet 7.5 MG PO (21:07)
[2022-05-30] MEDS: MELATONIN 10 MG TABLET PO (21:07)
[2022-05-31] VITALS (7 sets, daily range): BP systolic 110–151; BP diastolic 52–60; PULSE 73–77; RESP 16–18; TEMP 36.1; O2SAT 95–96
[2022-05-31] MEDS: Arthritis Pain Compound 60 CLICK TUBE TOPICAL ×2 (06:31→18:01)
[2022-05-31] MEDS: Acetaminophen 500 MG Tablet 1000 MG PO ×3 (06:32→22:05)
[2022-05-31] MEDS: Losartan Potassium 100 MG Tablet PO (06:32)
[2022-05-31] MEDS: APIXABAN 5 MG TABLET PO ×2 (06:33→17:59)
[2022-05-31] MEDS: Metoprolol Tartrate 100 MG Tablet PO ×2 (06:33→18:00)
[2022-05-31] MEDS: hydrALAZINE 25 MG Tablet PO ×3 (06:34→22:04)
[2022-05-31] MEDS: Senna/Docusate Sodium 1 Tablet PO (06:34)
[2022-05-31] MEDS: Nystatin Powder 15gm Bottle 1 APPLIC TOPICAL ×2 (06:36→22:29)
--- NOTE | 2022-05-31 16:09 | NURSING ---
Addendum entered by Jessica Cooper 06/01/22 03:08: PRN Doxapin was offered at HS, patient declined medication despite education stating I want to try to sleep without it, no c/o of insomnia this HS, patient resting with eyes closed, resps even and unlabored, no distress observed or reported. Call light in reach. Original Note: pt very tired today, states she did not sleep well lastnight. feels melatonin has reverse effect. dr mensah updated, new order for PRN doxepin and DC melatonin. pt & daughter updated.
[2022-05-31] MEDS: amLODIPine 10 MG Tablet PO (22:04)
[2022-05-31] MEDS: Mirtazapine 15 MG Tablet 7.5 MG PO (22:05)
[2022-06-01] MEDS: Senna/Docusate Sodium 1 Tablet PO (05:45)
[2022-06-01 05:46] VITALS: BP 165/70; PULSE 76
[2022-06-01] MEDS: Metoprolol Tartrate 100 MG Tablet PO ×2 (05:46→17:19)
[2022-06-01] MEDS: Acetaminophen 500 MG Tablet 1000 MG PO ×3 (05:46→21:52)
[2022-06-01] MEDS: APIXABAN 5 MG TABLET PO ×2 (05:46→17:18)
[2022-06-01] MEDS: hydrALAZINE 25 MG Tablet PO ×3 (05:46→21:53)
[2022-06-01] MEDS: Losartan Potassium 100 MG Tablet PO (05:46)
[2022-06-01] MEDS: Nystatin Powder 15gm Bottle 1 APPLIC TOPICAL ×2 (05:47→17:20)
[2022-06-01] MEDS: Arthritis Pain Compound 60 CLICK TUBE TOPICAL ×2 (05:47→17:22)
[2022-06-01 14:00] VITALS: BP 135/59; PULSE 74; RESP 16; TEMP 36.3; O2SAT 93
[2022-06-01 14:01] VITALS: PULSE 78
[2022-06-01 17:19] VITALS: PULSE 78
[2022-06-01] MEDS: Menthol/Lanolin/Calamine/Znox 113 GM Tube 1 APPLIC TOPICAL (17:20)
[2022-06-01] MEDS: traMADol 50 MG Tablet PO (21:52)
[2022-06-01] MEDS: amLODIPine 10 MG Tablet PO (21:52)
[2022-06-01 21:53] VITALS: BP 135/71; PULSE 67
[2022-06-01] MEDS: Mirtazapine 15 MG Tablet 7.5 MG PO (21:53)
[2022-06-02] MEDS: Acetaminophen 500 MG Tablet 1000 MG PO ×3 (04:55→21:13)
[2022-06-02 04:56] VITALS: BP 145/71; PULSE 71
[2022-06-02] MEDS: Metoprolol Tartrate 100 MG Tablet PO ×2 (04:56→17:36)
[2022-06-02] MEDS: Losartan Potassium 100 MG Tablet PO (04:56)
[2022-06-02] MEDS: hydrALAZINE 25 MG Tablet PO ×3 (04:56→21:14)
[2022-06-02] MEDS: Nystatin Powder 15gm Bottle 1 APPLIC TOPICAL ×2 (04:57→17:36)
[2022-06-02] MEDS: APIXABAN 5 MG TABLET PO ×2 (04:57→17:35)
[2022-06-02] MEDS: Senna/Docusate Sodium 1 Tablet PO (04:57)
[2022-06-02] MEDS: Menthol/Lanolin/Calamine/Znox 113 GM Tube 1 APPLIC TOPICAL ×2 (04:58→17:37)
--- NOTE | 2022-06-02 05:04 | NURSING ---
Saltine and club crackers given this am per pt request to prevent GI upset w/ am meds. Arthritis compound cream to be applied after am care.
[2022-06-02] MEDS: Arthritis Pain Compound 60 CLICK TUBE TOPICAL ×2 (09:13→17:34)
[2022-06-02 13:42] VITALS: PULSE 79
[2022-06-02 14:00] VITALS: BP 122/71; PULSE 73; RESP 14; TEMP 36; O2SAT 93
[2022-06-02 17:36] VITALS: PULSE 73
[2022-06-02] MEDS: traMADol 50 MG Tablet PO (21:12)
[2022-06-02 21:14] VITALS: BP 120/55; PULSE 65
[2022-06-02] MEDS: amLODIPine 10 MG Tablet PO (21:14)
[2022-06-02 21:15] VITALS: O2SAT 91
[2022-06-02] MEDS: Mirtazapine 15 MG Tablet 7.5 MG PO (21:15)
[2022-06-03 05:18] VITALS: BP 127/58; PULSE 64
[2022-06-03] MEDS: Senna/Docusate Sodium 1 Tablet PO (05:18)
[2022-06-03] MEDS: hydrALAZINE 25 MG Tablet PO ×3 (05:18→21:19)
[2022-06-03] MEDS: Losartan Potassium 100 MG Tablet PO (05:18)
[2022-06-03] MEDS: Metoprolol Tartrate 100 MG Tablet PO ×2 (05:18→17:10)
[2022-06-03] MEDS: Acetaminophen 500 MG Tablet 1000 MG PO ×3 (05:18→21:17)
[2022-06-03] MEDS: APIXABAN 5 MG TABLET PO ×2 (05:19→17:10)
[2022-06-03] MEDS: Nystatin Powder 15gm Bottle 1 APPLIC TOPICAL ×2 (05:20→17:11)
[2022-06-03 08:10] VITALS: PULSE 66; O2SAT 95
[2022-06-03 14:00] VITALS: BP 116/50; PULSE 86; RESP 20; TEMP 36.6; O2SAT 96
[2022-06-03 14:03] VITALS: PULSE 68
[2022-06-03] MEDS: Arthritis Pain Compound 60 CLICK TUBE TOPICAL (17:09)
[2022-06-03 17:10] VITALS: PULSE 64
[2022-06-03] MEDS: Menthol/Lanolin/Calamine/Znox 113 GM Tube 1 APPLIC TOPICAL (17:10)
[2022-06-03] MEDS: amLODIPine 10 MG Tablet PO (21:18)
[2022-06-03] MEDS: Mirtazapine 15 MG Tablet 7.5 MG PO (21:18)
[2022-06-03 21:19] VITALS: BP 121/58; PULSE 68
[2022-06-03] MEDS: traMADol 50 MG Tablet PO (21:22)
[2022-06-04 05:30] VITALS: BP 124/59; PULSE 65
[2022-06-04] MEDS: Losartan Potassium 100 MG Tablet PO (05:30)
[2022-06-04] MEDS: APIXABAN 5 MG TABLET PO ×2 (05:30→18:10)
[2022-06-04] MEDS: hydrALAZINE 25 MG Tablet PO ×3 (05:30→22:17)
[2022-06-04] MEDS: Acetaminophen 500 MG Tablet 1000 MG PO ×3 (05:30→22:16)
[2022-06-04] MEDS: Metoprolol Tartrate 100 MG Tablet PO ×2 (05:30→18:10)
[2022-06-04] MEDS: Menthol/Lanolin/Calamine/Znox 113 GM Tube 1 APPLIC TOPICAL ×2 (05:31→18:10)
[2022-06-04] MEDS: Nystatin Powder 15gm Bottle 1 APPLIC TOPICAL ×2 (05:31→18:11)
[2022-06-04] MEDS: Arthritis Pain Compound 60 CLICK TUBE TOPICAL ×2 (05:32→18:09)
[2022-06-04 10:00] VITALS: PULSE 70; RESP 16; O2SAT 97
[2022-06-04 13:47] VITALS: BP 117/51; PULSE 72; RESP 18; TEMP 36.1; O2SAT 94
[2022-06-04 13:58] VITALS: BP 117/51; PULSE 72
[2022-06-04 14:41] VITALS: BMI 31.4
[2022-06-04 18:10] VITALS: BP 126/59; PULSE 72
[2022-06-04] MEDS: Senna/Docusate Sodium 1 Tablet PO (18:10)
[2022-06-04] MEDS: Mirtazapine 15 MG Tablet 7.5 MG PO (22:16)
[2022-06-04 22:17] VITALS: BP 132/60; PULSE 70
[2022-06-04] MEDS: amLODIPine 10 MG Tablet PO (22:17)
[2022-06-05] VITALS (7 sets, daily range): BP systolic 108–139; BP diastolic 47–64; PULSE 66–82; RESP 16; TEMP 36.3; O2SAT 94
[2022-06-05] MEDS: Losartan Potassium 100 MG Tablet PO (05:46)
[2022-06-05] MEDS: Senna/Docusate Sodium 1 Tablet PO (05:47)
[2022-06-05] MEDS: APIXABAN 5 MG TABLET PO ×2 (05:48→17:26)
[2022-06-05] MEDS: Acetaminophen 500 MG Tablet 1000 MG PO ×3 (05:48→22:17)
[2022-06-05] MEDS: Menthol/Lanolin/Calamine/Znox 113 GM Tube 1 APPLIC TOPICAL ×2 (05:49→17:26)
[2022-06-05] MEDS: Nystatin Powder 15gm Bottle 1 APPLIC TOPICAL ×2 (05:49→17:26)
[2022-06-05] MEDS: hydrALAZINE 25 MG Tablet PO ×2 (05:49→13:54)
[2022-06-05] MEDS: Metoprolol Tartrate 100 MG Tablet PO ×2 (05:50→17:26)
[2022-06-05] MEDS: Arthritis Pain Compound 60 CLICK TUBE TOPICAL ×2 (05:51→17:25)
[2022-06-05] MEDS: traMADol 50 MG Tablet PO (08:02)
[2022-06-05] MEDS: Mirtazapine 15 MG Tablet 7.5 MG PO (22:16)
[2022-06-05] MEDS: amLODIPine 10 MG Tablet PO (22:17)
[2022-06-05] MEDS: Doxepin Hydrochloride 10 MG Capsule PO (22:17)
[2022-06-05] MEDS: hydrALAZINE 10 MG Tablet PO (22:19)
[2022-06-06 05:56] LABS: Absolute Lymphocyte Count 2.21 X10^3/uL (0.83-4.51); Absolute Neutrophil Count 2.9 X10^3/uL (2.0-7.7); Basophil# 0.05 X10^3/uL; Basophil% 0.8 % (0-1); Eosinophil# 0.21 X10^3/uL; Eosinophils% 3.4 % (0-5); Hematocrit 38.6 % (37-47); Hemoglobin 12.2 g/dL (12.0-15.0); Lymphocyte # 2.21 X10^3/ul (0.83-4.51); Lymphocyte % 35.7 % (19-41); Mean Corp Hgb Conc 31.6 g/dL (32-36); Mean Corpuscular Hgb 27.2 pg (27.0-32.0); Mean Corpuscular Volume 86.2 fL (81-99); Mean Platelet Vol. 10.5 fl (6.2-12.0); Monocyte# 0.76 X10^3/uL; Monocyte% 12.3 % (0-10); NRBC Flagged by Analyzer 0 % (0-5); Neutrophil # 2.94 X10^3/uL (2.7-7.7); Neutrophil % 47.5 % (47-70); Platelet Count 194 K/mm3 (150-450); RBC Distribution Width CV 13.8 % (11.6-14.6); Red Blood Count 4.48 M/mm3 (4.2-5.4); White Blood Count 6.2 K/mm3 (4.4-11.0)
[2022-06-06] MEDS: Arthritis Pain Compound 60 CLICK TUBE TOPICAL (06:00)
[2022-06-06 06:01] VITALS: BP 130/57; PULSE 63
[2022-06-06] MEDS: hydrALAZINE 10 MG Tablet PO ×3 (06:01→22:39)
[2022-06-06] MEDS: Senna/Docusate Sodium 1 Tablet PO ×2 (06:01→17:01)
[2022-06-06] MEDS: Metoprolol Tartrate 100 MG Tablet PO ×2 (06:01→17:01)
[2022-06-06] MEDS: Losartan Potassium 100 MG Tablet PO (06:01)
[2022-06-06] MEDS: Nystatin Powder 15gm Bottle 1 APPLIC TOPICAL ×2 (06:02→17:02)
[2022-06-06] MEDS: APIXABAN 5 MG TABLET PO ×2 (06:02→17:02)
[2022-06-06] MEDS: Menthol/Lanolin/Calamine/Znox 113 GM Tube 1 APPLIC TOPICAL ×2 (06:02→17:02)
[2022-06-06] MEDS: Acetaminophen 500 MG Tablet 1000 MG PO ×3 (06:02→22:39)
[2022-06-06 06:36] LABS: Anion Gap 4 (5-15); BUN 32 mg/dL (7-18); BUN/Creat Ratio 39.4 RATIO (10-20); Calcium,Total 8.7 mg/dL (8.5-10.1); Chloride 106 mmol/L (98-107); Creatinine, Serum 0.81 mg/dL (0.55-1.02); EST Glomerular Filtration Rate 72 mL/min (>60); Est Glom Filt Rate - Afr Amer 87 mL/min (>60); Estimated Creatinine Clearance 51.86 ml/min; Glucose 98 mg/dL (74-106); Sodium Level 139 mmol/L (136-145)
[2022-06-06 10:00] VITALS: PULSE 63; RESP 16; O2SAT 97
[2022-06-06 13:43] VITALS: BP 131/50; PULSE 61
[2022-06-06 14:00] VITALS: BP 126/69; PULSE 65; RESP 16; TEMP 36.3; O2SAT 92
--- NOTE | 2022-06-06 14:13 | CASEMGMT ---
Addendum entered by Karly Guerrier 06/06/22 16:53: [facility] can accept pt but will need to outsource nursing to [facility]. SW notified [facility] Liaison of DC date via email. Original Note: Social Work Spoke with pt and dtr in room about request to DC 06/10. IDT agreeable. Offered HHC vs OP. Pt/dtr wants HHC. SW educated to the HHC choices that accept [facility] Aid. Dtr prefers [facility]. SW placed referral via [facility] to [facility] PT/OT/SN. No DME needs. Dtr to transport. Pt is discharging home on new Eliquis -discount card to be provided to pt. Plan: DC home 06/10, [facility] PT/OT/SN Karly Guerrier, ROBIN MATHEWSW
[2022-06-06 17:01] VITALS: PULSE 65
--- NOTE | 2022-06-06 19:41 | DS.PCM_ITS ---
Providers Date of Admission: 05/15/22 Primary Care Physician: Dr. Aneesh Chang MD Reason For Visit: AFIB/RVR Diagnosis Discharge Diagnosis (1) Debility: Status: Acute Code(s): R53.81 - Other malaise (2) Acute respiratory failure with hypoxia: Status: Acute Code(s): J96.01 - Acute respiratory failure with hypoxia (3) Atrial fibrillation with rapid ventricular response: Status: Acute Code(s): I48.91 - Unspecified atrial fibrillation (4) Acute on chronic diastolic (congestive) heart failure: Status: Chronic Code(s): I50.33 - Acute on chronic diastolic (congestive) heart failure (5) DVT, bilateral lower limbs: Status: Acute Code(s): I82.403 - Acute embolism and thrombosis of unspecified deep veins of lower extremity, bilateral (6) Hypertension: Status: Chronic Code(s): I10 - Essential (primary) hypertension Plan 82 year old female with below past medical history hospitalized for acute respiratory failure with hypoxia secondary to atrial fibrillation with rapid ventricular response, acute on chronic diastolic congestive heart failure, complicated by bilateral lower extremity DVT, admitted to TCU with debility, here for rehabilitation, strengthening, prior to discharge home alone. * Debility - PT/OT. * Pain - Tylenol 1000mg q6h prn pain (1-3), Tramadol 50mg q6h prn pain (4-10). * Bowel - senna/colace 1 tablet bid, Dulcolax 10mg pr x 1 prn, MOM 30ml po x 1 prn. * Adult immunization - Administer pneumonia vaccine, covid19 vaccine, flu vaccine as appropriate. * DVT prophylaxis - Not necessary, already Eliquis. * Bilateral lower extremity DVT - Eliquis 10mg bid x 7 days, then 5mg bid. * Atrial fibrillation - Metoprolol 100mg bid, Eliquis as above, brain aneurysm resolved. * Acute on chronic diastolic congestive heart failure - Metoprolol 100mg bid, Lisinopril 20mg daily, Furosemide 40mg daily thru 05/19/2022. * Tinea Corporis - Nystatin powder topical bid. * Acute respiratory failure with hypoxia - resolved. Medications at Discharge Home Medications acetaminophen 500 mg tablet 1,000 mg PO Q8 #0 tabs 06/06/22 amlodipine 10 mg tablet 10 mg PO QHS 30 days #30 tabs 06/06/22 apixaban 5 mg tablet (Eliquis) 5 mg PO BID 30 days #60 tabs 06/06/22 hydralazine 10 mg tablet 10 mg PO TID 30 days #90 tabs 06/06/22 losartan 100 mg tablet 100 mg PO DAILY 30 days #30 tabs 06/06/22 metoprolol tartrate 100 mg tablet 100 mg PO BID 30 days #60 tabs 06/06/22 mirtazapine 15 mg tablet 7.5 mg PO QHS 30 days #15 tabs 06/06/22 tramadol 50 mg tablet 50 mg PO Q6H PRN PRN Pain Score 4-10 7 days #28 tabs 06/06/22 Hospital Course Operations None Procedures None Summary of Care Provided Minutes Spent on Discharge: 35 Hospital Course: 82 year old female with below past medical history hospitalized for acute respiratory failure with hypoxia secondary to atrial fibrillation with rapid ventricular response, acute on chronic diastolic congestive heart failure, compl icated by bilateral lower extremity DVT, admitted to TCU with debility, here for rehabilitation, strengthening, prior to discharge home alone. Resident blood pressure difficult to control, blood pressure medications adjusted, added. Discharge home 06/10/2022, [facility] PT/OT/SN. Physical Exam Const alert General Appearance: cooperative HEENT normocephalic Eyes PERRL and EOMs intact bilaterally Neck supple, no JVD and no carotid bruits Resp normal respiratory effort, normal air movement and clear to auscultation bilaterally Cardio regular rate and regular rhythm GI normal to inspection, nondistended, normoactive bowel sounds, non-tender and non-distended Extremity normal capillary refill General Extremity: Negative for edema Skin no rashes or lesions noted General Skin Exam: no breakdown Psych affect normal Appearance: appropriate Weight / BMI Weight Weight: 88.541 kg Body Mass Index (BMI) 31.4 ABG / Lab / Microbiology Data Result Diagrams: 06/06/22 05:25 06/06/22 05:25 Laboratory: Laboratory Results - last 24 hr 06/06/22 05:25: WBC 6.2, RBC 4.48, Hgb 12.2, Hct 38.6, MCV 86.2, MCH 27.2, MCHC 31.6 L, RDW Std Deviation 43.0, RDW Coeff of Marissa 13.8, Plt Count 194, MPV 10.5, Immature Gran % (Auto) 0.300, Neut % (Auto) 47.5, Lymph % (Auto) 35.7, [place] % (Auto) 12.3 H, Eos % (Auto) 3.4, Baso % (Auto) 0.8, Absolute Neuts (auto) 2.9, Absolute Lymphs (auto) 2.21, Nucleated RBC % 0 06/06/22 05:25: Sodium 139, Potassium 4.0, Chloride 106, Carbon Dioxide 29.0, Anion Gap 4 L, BUN 32 H, Creatinine 0.81, Estim Creat Clear Calc 51.86, Est GFR (MDRD) Af Amer 87, Est GFR (MDRD) Non-Af 72, BUN/Creatinine Ratio 39.4 H, Glucose 98, Calcium 8.7 Microbiology: Microbiology 05/19/22 03:15 Nasal Secretion SARS-CoV-2 Antigen (Rapid) - Final 05/17/22 05:30 Nasal Secretion SARS-CoV-2 Antigen (Rapid) - Final D/C Instructions Discharge Diet: No restrictions Discharge Activity: Return to Normal Activity, May Shower and Use Walker Weight Bearing Status: Weight bearing as tolerated Call your doctor if you observe: Fever of 101 or Higher, Inability to urinate, Inability to have a bowel movement, Shortness of breath, Dizziness, Fainting spells, Swelling in the ankles, Chest pain and Uncontrolled pain Additional Instructions: Discharge home 06/10/2022, [facility] PT/OT/SN. Meaningful Use Info Meaningful Use Diagnoses (Choose all that apply): None applicable Discharge Plan Admission Admit Date/Time: 05/15/22 17:10 Primary Reason for Your Visit: Debility. Attending Provider: Gregory Perry Chi Primary Care Provider: Aneesh hCang Instructions Additional Instructions / Restrictions: Discharge home 06/10/2022, [facility] PT/OT/SN. Discharge Orders/Prescriptions Prescriptions: New hydralazine 10 mg Tablet 10 mg PO TID 30 Days Qty: 90 0RF metoprolol tartrate 100 mg Tablet 100 mg PO BID 30 Days Qty: 60 0RF tramadol 50 mg Tablet 50 mg PO Q6H PRN PRN (Reason: Pain Score 4-10) 7 Days Qty: 28 0RF acetaminophen 500 mg Tablet 1,000 mg PO Q8 Qty: 0 0RF amlodipine 10 mg Tablet 10 mg PO QHS 30 Days Qty: 30 0RF mirtazapine 15 mg Tablet 7.5 mg PO QHS 30 Days Qty: 15 0RF losartan 100 mg Tablet 100 mg PO DAILY 30 Days Qty: 30 0RF Eliquis 5 mg Tablet 5 mg PO BID 30 Days Qty: 60 0RF Discontinued acetaminophen 325 mg Tablet 650 mg PO Q6H PRN PRN (Reason: Pain 1-10 Or Fever>100.7) Qty: 0 0RF hydrocodone-acetaminophen 5-325 mg tablet 1 tab PO Q6H PRN (Reason: pain) 3 Days Qty: 10 0RF furosemide 40 mg tablet 40 mg PO DAILY metoprolol tartrate 100 mg tablet 100 mg PO BID lisinopril 20 mg tablet 20 mg PO DAILY nystatin [Nyamyc] 100,000 unit/gram powder 1 applic topical BID Protocol: *Topical Application Instructions APPLICATION INSTRUCTIONS: ABD FOLDS AND GROIN Rx Instructions: apply to affected areas Eliquis 5 mg tablet 10 mg PO BID Rx Instructions: Take for for 13 doses starting 05/16/22, then start 5 mg bid starting 05/22/22 in the evening Referrals / Follow Up: Aneesh Chang MD [Primary Care Provider] - (Family to make appt ) Disposition Disposition (needs filled in before D/C Order can be placed): Home, Self Care
[2022-06-06 22:39] VITALS: BP 129/52; PULSE 71
[2022-06-06] MEDS: amLODIPine 10 MG Tablet PO (22:39)
[2022-06-06] MEDS: Mirtazapine 15 MG Tablet 7.5 MG PO (22:39)
[2022-06-07] VITALS (7 sets, daily range): BP systolic 122–137; BP diastolic 51–63; PULSE 67–75; RESP 14–16; TEMP 36.3; O2SAT 95–99
[2022-06-07] MEDS: Acetaminophen 500 MG Tablet 1000 MG PO ×3 (05:03→21:33)
[2022-06-07] MEDS: APIXABAN 5 MG TABLET PO ×2 (05:03→17:52)
[2022-06-07] MEDS: Metoprolol Tartrate 100 MG Tablet PO ×2 (05:03→17:53)
[2022-06-07] MEDS: Losartan Potassium 100 MG Tablet PO (05:03)
[2022-06-07] MEDS: Senna/Docusate Sodium 1 Tablet PO (05:03)
[2022-06-07] MEDS: Nystatin Powder 15gm Bottle 1 APPLIC TOPICAL ×2 (05:04→17:51)
[2022-06-07] MEDS: Menthol/Lanolin/Calamine/Znox 113 GM Tube 1 APPLIC TOPICAL ×2 (05:05→18:26)
[2022-06-07] MEDS: hydrALAZINE 10 MG Tablet PO ×3 (05:06→21:32)
--- NOTE | 2022-06-07 17:01 | CASEMGMT ---
Social Work BIMS (12/29) and PHQ-9 (02/10) completed for MDS assessment. Karly Guerrier MSW MULE TENDER
[2022-06-07] MEDS: Arthritis Pain Compound 60 CLICK TUBE TOPICAL (17:52)
[2022-06-07] MEDS: Mirtazapine 15 MG Tablet 7.5 MG PO (21:31)
[2022-06-07] MEDS: Doxepin Hydrochloride 10 MG Capsule PO (21:31)
[2022-06-07] MEDS: amLODIPine 10 MG Tablet PO (21:32)
[2022-06-08] VITALS (8 sets, daily range): BP systolic 125–148; BP diastolic 56–76; PULSE 60–74; RESP 16–20; TEMP 36.2; O2SAT 94–95
[2022-06-08] MEDS: Arthritis Pain Compound 60 CLICK TUBE TOPICAL (05:44)
[2022-06-08] MEDS: APIXABAN 5 MG TABLET PO ×2 (05:45→18:05)
[2022-06-08] MEDS: hydrALAZINE 10 MG Tablet PO ×3 (05:45→19:57)
[2022-06-08] MEDS: Acetaminophen 500 MG Tablet 1000 MG PO ×3 (05:45→19:59)
[2022-06-08] MEDS: Nystatin Powder 15gm Bottle 1 APPLIC TOPICAL ×2 (05:47→18:06)
[2022-06-08] MEDS: Metoprolol Tartrate 100 MG Tablet PO ×2 (05:49→18:06)
[2022-06-08] MEDS: Losartan Potassium 100 MG Tablet PO (07:59)
[2022-06-08] MEDS: Menthol/Lanolin/Calamine/Znox 113 GM Tube 1 APPLIC TOPICAL ×2 (08:01→19:57)
[2022-06-08] MEDS: Senna/Docusate Sodium 1 Tablet PO (18:06)
[2022-06-08] MEDS: amLODIPine 10 MG Tablet PO (19:58)
[2022-06-08] MEDS: Mirtazapine 15 MG Tablet 7.5 MG PO (19:58)
[2022-06-09] VITALS (8 sets, daily range): BP systolic 123–140; BP diastolic 61–68; PULSE 64–71; RESP 16; TEMP 36.1; O2SAT 94–95
[2022-06-09] MEDS: APIXABAN 5 MG TABLET PO ×2 (06:12→17:20)
[2022-06-09] MEDS: Acetaminophen 500 MG Tablet 1000 MG PO ×3 (06:12→21:17)
[2022-06-09] MEDS: Nystatin Powder 15gm Bottle 1 APPLIC TOPICAL ×2 (06:12→17:19)
[2022-06-09] MEDS: Senna/Docusate Sodium 1 Tablet PO (06:12)
[2022-06-09] MEDS: Metoprolol Tartrate 100 MG Tablet PO ×2 (06:12→17:19)
[2022-06-09] MEDS: hydrALAZINE 10 MG Tablet PO ×3 (06:13→21:18)
[2022-06-09] MEDS: Losartan Potassium 100 MG Tablet PO (08:47)
[2022-06-09] MEDS: Menthol/Lanolin/Calamine/Znox 113 GM Tube 1 APPLIC TOPICAL ×2 (08:47→21:22)
[2022-06-09] MEDS: Mirtazapine 15 MG Tablet 7.5 MG PO (21:17)
[2022-06-09] MEDS: amLODIPine 10 MG Tablet PO (21:19)
[2022-06-10] MEDS: Acetaminophen 500 MG Tablet 1000 MG PO ×2 (04:53→13:12)
[2022-06-10 04:54] VITALS: BP 131/62; PULSE 60
[2022-06-10] MEDS: Metoprolol Tartrate 100 MG Tablet PO (04:54)
[2022-06-10] MEDS: hydrALAZINE 10 MG Tablet PO ×2 (04:54→13:12)
[2022-06-10] MEDS: Nystatin Powder 15gm Bottle 1 APPLIC TOPICAL (04:55)
[2022-06-10] MEDS: Senna/Docusate Sodium 1 Tablet PO (04:55)
[2022-06-10] MEDS: APIXABAN 5 MG TABLET PO (04:55)
[2022-06-10 05:03] VITALS: O2SAT 95
[2022-06-10] MEDS: Losartan Potassium 100 MG Tablet PO (08:10)
[2022-06-10 13:12] VITALS: BP 133/56; PULSE 70
[2022-06-10 14:20] VITALS: BP 133/56; PULSE 56; RESP 20; TEMP 36.4; O2SAT 94
--- NOTE | 2022-06-10 14:25 | NURSING ---
Patient d/c home with daughter and restaurant delivery driver per w/c. Reviewed and sent home with discharge instructions.
== END 2022-06-10 13:45 | disposition home health service (06) | DRG 308 ==
PROVIDERS: Admitting Provider Family Medicine Geriatric Medicine; PCP Internal Medicine Infectious Disease; Visit Provider Family Medicine Geriatric Medicine
DX: I48.91 Unspecified atrial fibrillation (principal); I50.33 Acute on chronic diastolic (congestive) heart failure; I82.403 Acute embolism and thrombosis of unspecified deep veins of lower extremity, bilateral; I11.0 Hypertensive heart disease with heart failure; B35.4 Tinea corporis; Z79.01 Long term (current) use of anticoagulants; Z79.899 Other long term (current) drug therapy; F32.A Depression, unspecified; G47.00 Insomnia, unspecified
CPT/HCPCS: 36415; 80048; 85025; 87811; 92507; 92523; 97110; 97116; 97140; 97162; 97166; 97530; 97535; 97802; A4216

== ENCOUNTER 2022-06-17 17:47 | Inpatient (IN) | payer OTHER, SELFPAY ==
[2022-06-17] VITALS (9 sets, daily range): BP systolic 93–134; BP diastolic 55–93; PULSE 78–132; RESP 14–24; TEMP 35.5–36.3; O2SAT 88–98; BMI 33.0; BMI 32.2
--- NOTE | 2022-06-17 18:15 | EKG12_ITS ---
Test Reason : SOB Blood Pressure : / mmHG Vent. Rate : 125 BPM Atrial Rate : 131 BPM P-R Int : 000 ms QRS Dur : 074 ms QT Int : 296 ms P-R-T Axes : 000 075 111 degrees QTc Int : 427 ms Atrial fibrillation Nonspecific ST abnormality Abnormal ECG Confirmed by COLLIN CORADO, ROBERTA ([id number]), editor producer MICHAEL CARRASCO ([id number]) on 06/19/2022 9:51:15 AM Referred By: SVETA Confirmed By:JADEN POLANCO MD
--- NOTE | 2022-06-17 18:35 | ED.VIS.DYS ---
HPI History of Present Illness Chief Complaint: Shortness of Breath Narrative Narrative: Patient presents with shortness of breath. She arrives to the ED with a pulse ox of 88% in triage. She has placed on oxygen by the nurse. She has a history of CHF and A-fib she has increased swelling in her legs and feels palpitations. No fevers chills. She is denying any cough. No chest pain or pleuritic component no back pain or tearing sensation PFSH PFSH Medical History (Updated 06/17/22 @ 20:[address] Yanick Balderas MD) Anxiety Depression Dizziness Hypertension Severe uncontrolled hypertension Syncope and collapse Home Medications acetaminophen 500 mg tablet 1,000 mg PO Q8 #0 tabs 06/06/22 [Rx Last Taken Unknown] amlodipine 10 mg tablet 10 mg PO QHS 30 days #30 tabs 06/06/22 [Rx Last Taken Unknown] apixaban 5 mg tablet (Eliquis) 5 mg PO BID 30 days #60 tabs 06/06/22 [Rx Last Taken Unknown] hydralazine 10 mg tablet 10 mg PO TID 30 days #90 tabs 06/06/22 [Rx Last Taken Unknown] losartan 100 mg tablet 100 mg PO DAILY 30 days #30 tabs 06/06/22 [Rx Last Taken Unknown] metoprolol tartrate 100 mg tablet 100 mg PO BID 30 days #60 tabs 06/06/22 [Rx Last Taken Unknown] mirtazapine 15 mg tablet 7.5 mg PO QHS 30 days #15 tabs 06/06/22 [Rx Last Taken Unknown] tramadol 50 mg tablet 50 mg PO Q6H PRN PRN Pain Score 4-10 7 days #28 tabs 06/06/22 [Rx Last Taken Unknown] Allergy/AdvReac Type Severity Reaction Status Date / Time No Known Allergies Allergy Verified 06/17/22 17:48 Family History Mother Heart disease Surgical History History of hernia repair Social History household members: none Smoking Status: Never smoker alcohol intake: never substance use type: does not use ROS ROS ED ROS Narrative Past medical history: Reviewed Medications: Reviewed Social history: Noncontributory Review of systems: All systems negative except as indicated General: No fever Eyes: No visual changes ENT: No upper airway congestion, normal voice Neck: No neck pain Cardiovascular: No chest pain. Some palpitations Respiratory: Dyspnea as in HPI Gastrointestinal: No abdominal pain, nausea vomiting or diarrhea Genitourinary: No dysuria Musculoskeletal: Lower extremity edema Skin: No rash Neurological: No memory loss, confusion or any focal weakness Psych: No recent behavioral changes Hematologic: No easy bleeding or easy bruising EXAM Physical Exam Narrative Exam Narrative: Physical exam General: Patient appears slightly uncomfortable Head: Normocephalic, Atraumatic Eyes: Conjunctiva not pale ENT: Moist mucous membranes Neck: Supple, Nontender, No lymphadenopathy Cardiovascular: Irregular tachycardia. I cannot appreciate an S 3 or S4 sound. No murmurs. Respiratory: Coarse bilateral breath sounds with rhonchi. Abdomen: Soft, Nontender, Nondistended Back: Nontender, Normal Inspection. Negative for: CVA tenderness Extremities: Bilateral lower extremity edema without any signs of cellulitis Skin: Normal color, No rash Neurological: Alert, Normal Strength, Normal Sensation Psychological: Normal affect Const Vital Signs: 06/17/22 17:48 06/17/22 18:15 06/17/22 18:42 Temperature 96 F L Temperature Source Temporal Pulse Rate 128 H Respiratory Rate 14 Respiratory Effort Short of Breath Respiratory Pattern Tachypnea Blood Pressure 93/70 Blood Pressure Mean 77 Pulse Ox 91 Oxygen Delivery Method Room Air Nasal Cannula Room Air Oxygen Flow Rate (L/min) 2 06/17/22 19:09 06/17/22 19:10 Temperature Temperature Source Pulse Rate 132 H 127 H Respiratory Rate 24 H 23 H Respiratory Effort Respiratory Pattern Blood Pressure 129/77 H Blood Pressure Mean 94 Pulse Ox 95 Oxygen Delivery Method Oxygen Flow Rate (L/min) MDM MDM MDM Narrative Medical decision making narrative: A. Problems addressed- Patient has A-fib with RVR, I gave her Cardizem but continued to be tachycardic and then I gave her more Cardizem drip. She also dyspneic with hypoxia of 88% on room air and she was placed on oxygen. I did hear some wheezing and I gave her a breathing treatment and she is significantly improved symptomatically. She has not been diagnosed with any reactive airway disease. There is no signs or symptoms of pneumonia. She has very mild CHF but her chest x-ray is clear therefore I am reluctant to say that her whole source of hypoxia is CHF she will need further treatment at this time she is anticoagulated I do not believe she has a PE. Patient will be admitted. B. Amount and/or complexity of the data 1. CBC CMP and troponin and natruretic peptide were ordered and interpreted by me. 2. Independent interpretation of test Telemetry: A-fib with a rate in the 120s 3. I discussed with hospitalist for admission. C. Risk of complications and/or morbidity Differential diagnosis: See above Lab Data Labs: Laboratory Results - last 24 hr 06/17/22 06/17/22 06/17/22 18:35 18:35 18:35 WBC 11.6 H RBC 4.65 Hgb 12.9 Hct 39.6 MCV 85.2 MCH 27.7 MCHC 32.6 RDW Std Deviation 43.9 RDW Coeff of Marissa 14.2 Plt Count 202 MPV 10.9 Immature Gran % (Auto) 0.300 Neut % (Auto) 67.6 Lymph % (Auto) 18.6 L [place] % (Auto) 12.3 H Eos % (Auto) 0.9 Baso % (Auto) 0.3 Absolute Neuts (auto) 7.9 H Absolute Lymphs (auto) 2.16 Nucleated RBC % 0 Sodium 134 L Potassium 4.2 Chloride 101 Carbon Dioxide 28.0 Anion Gap 5 BUN 41 H Creatinine 1.09 H Est GFR (MDRD) Af Amer 62 Est GFR (MDRD) Non-Af 51 L BUN/Creatinine Ratio 37.6 H Glucose 125 H Calcium 9.3 Total Bilirubin 0.50 AST 11 L ALT 15 Alkaline Phosphatase 87 Troponin I High Sens 6 B-Natriuretic Peptide 360.4 H Total Protein 7.1 Albumin 3.2 Globulin 3.9 Albumin/Globulin Ratio 0.8 L Radiography Diagnostic Testing: Clinical Impression(s) from Imaging Studies Chest X-Ray 06/17/22 18:51 IMPRESSION: No radiographic evidence of acute cardiopulmonary disease. Electronically Signed: Carlin Campos MD at 20:06 EDT Reading Location ID and State: [facility] / [place] Tel , Service support , EKG Initial EKG: Comments: Atrial fibrillation with a rate of 125. Normal QTc. Nonspecific ST changes. Interpreted by emergency doctor. Discharge Plan Triage Chief Complaint: Shortness of Breath ED Provider: Yanick Balderas Dx/Rx/DC Orders Clinical Impression: Atrial fibrillation with RVR, CHF (congestive heart failure), Hypoxia, Bilateral wheezing Prescriptions: No Action hydralazine 10 mg Tablet 10 mg PO TID 30 Days Qty: 90 0RF metoprolol tartrate 100 mg Tablet 100 mg PO BID 30 Days Qty: 60 0RF tramadol 50 mg Tablet 50 mg PO Q6H PRN PRN (Reason: Pain Score 4-10) 7 Days Qty: 28 0RF acetaminophen 500 mg Tablet 1,000 mg PO Q8 Qty: 0 0RF amlodipine 10 mg Tablet 10 mg PO QHS 30 Days Qty: 30 0RF mirtazapine 15 mg Tablet 7.5 mg PO QHS 30 Days Qty: 15 0RF losartan 100 mg Tablet 100 mg PO DAILY 30 Days Qty: 30 0RF Eliquis 5 mg Tablet 5 mg PO BID 30 Days Qty: 60 0RF Primary Care Provider: Aneesh Chang Referrals: Aneesh Chang MD [Primary Care Provider] - Disposition Disposition: Acute Care Hospital [facility]
--- NOTE | 2022-06-17 18:39 | ED.RN ---
PT NOTED TO HAVE 02 SATS OF 88% ON ROOM AIR. THIS RN PLACES 2L O2 ON VIA NC.
[2022-06-17 18:46] LABS: Absolute Lymphocyte Count 2.16 X10^3/uL (0.83-4.51); Absolute Neutrophil Count 7.9 X10^3/uL (2.0-7.7); Basophil# 0.03 X10^3/uL; Basophil% 0.3 % (0-1); Eosinophils% 0.9 % (0-5); Hematocrit 39.6 % (37-47); Hemoglobin 12.9 g/dL (12.0-15.0); Lymphocyte # 2.16 X10^3/ul (0.83-4.51); Lymphocyte % 18.6 % (19-41); Mean Corp Hgb Conc 32.6 g/dL (32-36); Mean Corpuscular Hgb 27.7 pg (27.0-32.0); Mean Corpuscular Volume 85.2 fL (81-99); Mean Platelet Vol. 10.9 fl (6.2-12.0); Monocyte# 1.43 X10^3/uL; Monocyte% 12.3 % (0-10); NRBC Flagged by Analyzer 0 % (0-5); Neutrophil # 7.86 X10^3/uL (2.7-7.7); Neutrophil % 67.6 % (47-70); Platelet Count 202 K/mm3 (150-450); RBC Distribution Width CV 14.2 % (11.6-14.6); RBC Distribution Width SD 43.9 fl (35.1-43.9); Red Blood Count 4.65 M/mm3 (4.2-5.4); White Blood Count 11.6 K/mm3 (4.4-11.0)
--- NOTE | 2022-06-17 18:51 | RAD_ITS ---
INDICATION: chest pain EXAMINATION/TECHNIQUE: X-RAY - portable upright AP chest x-ray COMPARISON: 05/13/2022 FINDINGS: LINES/DEVICES: Stable digital device projects over the left heart border. LUNGS: No consolidation, edema or effusion. No pneumothorax. MEDIASTINUM AND CARDIOVASCULAR STRUCTURES: Cardiac silhouette not enlarged. Central airways and mediastinal contour are unremarkable. BONES AND SOFT TISSUES: No acute changes. RAD/Chest 1 View (Portable) IMPRESSION: No radiographic evidence of acute cardiopulmonary disease. Electronically Signed: Carlin Campos MD at 20:06 EDT ,
[2022-06-17 18:59] LABS: BNP,B-Type NATRIURETIC PEPTIDE 360.4 pg/mL (0-100)
[2022-06-17 19:04] LABS: ALB/GLOB Ratio 0.8 RATIO (0.9-2.4); AST(SGOT) 11 U/L (15-37); Alanine Aminotransfer ALT/SGPT 15 U/L (13-56); Albumin, Serum 3.2 g/dL (3.2-5.0); Alkaline Phosphatase 87 U/L (45-117); Anion Gap 5 (5-15); BUN 41 mg/dL (7-18); BUN/Creat Ratio 37.6 RATIO (10-20); Calcium,Total 9.3 mg/dL (8.5-10.1); Chloride 101 mmol/L (98-107); Creatinine, Serum 1.09 mg/dL (0.55-1.02); EST Glomerular Filtration Rate 51 mL/min (>60); Est Glom Filt Rate - Afr Amer 62 mL/min (>60); Globulin 3.9 g/dL (2.2-4.2); Glucose 125 mg/dL (74-106); Potassium 4.2 mmol/L (3.5-5.1); Protein, Total 7.1 g/dL (6.4-8.2); Sodium Level 134 mmol/L (136-145); Troponin-I HS (w/2H Reflex) 6 pg/mL (3.0-54.0)
[2022-06-17] MEDS: Ipratropium/Albuterol Sulfate 3 ML AMPUL.NEB INHALATION (19:09)
[2022-06-17] MEDS: dilTIAZem 25 MG/5 ML Vial 10 MG IV BOLUS (20:27)
[2022-06-17] MEDS: dilTIAZem 30 MG Tablet PO (20:56)
--- NOTE | 2022-06-17 21:37 | HP.PCM.HOS_ITS ---
[facility] - General General Date of Admission: 06/17/22 Date of Service: 06/17/22 Chief Complaint: Shortness of breath HPI Narrative JOCELYNE VILLEDA, is a 82 F with a significant history of atrial fibrillation on Eliquis; heart failure with preserved ejection fraction; hypertension and bilateral leg DVT who presents to the emergency department with a 2-day history of progressively worsening shortness of breath. Her shortness of breath is at rest and increases markedly with minimal exertion. At baseline patient is assist with ambulation. She was recently (06/06/2022) discharged from the transitional care unit of [facility] where she was undergoing rehabilitation.. Associated with her symptoms is orthopnea, paroxysmal nocturnal dyspnea, and bilateral lower extremity swelling. Further she is fatigued. She thinks she ponce s gained about 3 pounds weight since discharge from the transitional care units. On presentation at the triage patient's oxygen saturation was 88%. She was placed on supplemental oxygen with improvement in her oxygenation. Patient was found to be in A-fib with RVR. She was given a Cardizem IV bolus. She was then given Cardizem p.o. Patient was wheezing at the emergency department and she received breathing treatment. [facility] Medical History Anxiety Depression Dizziness Hypertension Severe uncontrolled hypertension Syncope and collapse Home Medications acetaminophen 500 mg tablet 1,000 mg PO Q8 #0 tabs 06/06/22 [Rx Last Taken ] amlodipine 10 mg tablet 10 mg PO QHS 30 days #30 tabs 06/06/22 [Rx Last Taken 06/16/22] apixaban 5 mg tablet (Eliquis) 5 mg PO BID 30 days #60 tabs 06/06/22 [Rx Last Taken 06/17/22] hydralazine 10 mg tablet 10 mg PO TID 30 days #90 tabs 06/06/22 [Rx Last Taken 06/17/22] losartan 100 mg tablet 100 mg PO DAILY 30 days #30 tabs 06/06/22 [Rx Last Taken 06/17/22] metoprolol tartrate 100 mg tablet 100 mg PO BID 30 days #60 tabs 06/06/22 [Rx Last Taken 06/17/22] mirtazapine 15 mg tablet 7.5 mg PO QHS 30 days #15 tabs 06/06/22 [Rx Last Taken 06/16/22] tramadol 50 mg tablet 50 mg PO Q6H PRN PRN Pain Score 4-10 7 days #28 tabs 06/06/22 [Rx Last Taken 06/17/22] Allergy/AdvReac Type Severity Reaction Status Date / Time No Known Allergies Allergy Verified 06/17/22 17:48 Family History Mother Heart disease Surgical History History of hernia repair Social History household members: none Smoking Status: Never smoker alcohol intake: never substance use type: does not use ROS ROS Narrative Pertinent positives and pertinent negatives as noted in HPI. All other systems were reviewed and are negative Vital Signs Vital Signs Vital Signs: 06/17/22 17:48 06/17/22 18:15 06/17/22 18:42 Temperature 96 F L Temperature Source Temporal Pulse Rate 128 H Respiratory Rate 14 Respiratory Effort Short of Breath Respiratory Pattern Tachypnea Blood Pressure 93/70 Blood Pressure Mean 77 Pulse Ox 91 Oxygen Delivery Method Room Air Nasal Cannula Room Air Oxygen Flow Rate (L/min) 2 06/17/22 19:09 06/17/22 19:10 06/17/22 20:28 Temperature Temperature Source Pulse Rate 132 H 127 H 84 Respiratory Rate 24 H 23 H 19 H Respiratory Effort Respiratory Pattern Blood Pressure 129/77 H 134/93 H Blood Pressure Mean 94 106 Pulse Ox 95 97 Oxygen Delivery Method Nasal Cannula Oxygen Flow Rate (L/min) 2 06/17/22 21:26 Temperature Temperature Source Pulse Rate 87 Respiratory Rate 16 Respiratory Effort Respiratory Pattern Blood Pressure 109/64 Blood Pressure Mean 79 Pulse Ox 98 Oxygen Delivery Method Nasal Cannula Oxygen Flow Rate (L/min) 2 Weight Weight: 92.8 kg Body Mass Index (BMI) 33.0 Physical Exam Narrative Physical exam: General: Well-nourished, well-developed. Head: Normocephalic, atraumatic, no tenderness Eyes: Vision is grossly intact. EOMI ENT, no trauma, moist mucous membranes, no rhinorrhea Neck: Nontender, No thyromegaly. CVS: Irregularly irregular rate and rhythm. S1-S2 present. No murmur, gallop or rub. Respiratory : Diminished bilaterally, chest wall nontender Abdomen: Soft, nontender, nondistended, normal bowel sounds, no masses : Deferred Back: Nontender, no CVA tenderness, no midline spinal tenderness, deformities, step-offs Extremities: Nontender full range of motion, no trauma Skin: Normal color, no trauma, abrasions Neuro: Alert, oriented, cranial nerves II through XII grossly intact. Psychiatry: Normal mood. Normal affect. Not depressed. Not anxious. Results Lab / Micro Data Result Diagrams: 06/17/22 18:35 06/17/22 18:35 Labs: Laboratory Results - last 24 hr 06/17/22 18:35: WBC 11.6 H, RBC 4.65, Hgb 12.9, Hct 39.6, MCV 85.2, MCH 27.7, MCHC 32.6, RDW Std Deviation 43.9, RDW Coeff of Marissa 14.2, Plt Count 202, MPV 10.9, Immature Gran % (Auto) 0.300, Neut % (Auto) 67.6, Lymph % (Auto) 18.6 L, [place] % (Auto) 12.3 H, Eos % (Auto) 0.9, Baso % (Auto) 0.3, Absolute Neuts (auto) 7.9 H, Absolute Lymphs (auto) 2.16, Nucleated RBC % 0 06/17/22 18:35: Sodium 134 L, Potassium 4.2, Chloride 101, Carbon Dioxide 28.0, Anion Gap 5, BUN 41 H, Creatinine 1.09 H, Est GFR (MDRD) Af Amer 62, Est GFR (MD RD) Non-Af 51 L, BUN/Creatinine Ratio 37.6 H, Glucose 125 H, Calcium 9.3, Total Bilirubin 0.50, AST 11 L, ALT 15, Alkaline Phosphatase 87, Troponin I High Sens 6, Total Protein 7.1, Albumin 3.2, Globulin 3.9, Albumin/Globulin Ratio 0.8 L 06/17/22 18:35: B-Natriuretic Peptide 360.4 H Radiology Impression Chest X-Ray 06/17/22 18:51 IMPRESSION: No radiographic evidence of acute cardiopulmonary disease. Electronically Signed: Carlin Campos MD at 20:06 EDT , Assessment & Plan Assessment/Plan (1) Atrial fibrillation with RVR: (2) CHF (congestive heart failure): (3) Hypoxia: (4) Hypertension: PLAN: Plan A-fib with RVR with hypoxia EKG independently reviewed showed A-fib with RVR. Place on PCU on telemetry Echocardiogram 1 05/13/2022 showed estimated ejection fraction of 53% with stage II diastolic dysfunction. There was no hemodynamically significant valvular abnormalities reported. Home Eliquis continued. On presentation BMP reviewed showed normal potassium level. Magnesium ordered with change normal at 2.3. Chest x-ray: Radiologist impression no acute cardiopulmonary process. Chest x- ray was independently visualized and I agree with radiology interpretation. Received Cardizem IV in. Emergency department. Will restart the patient's home metoprolol. As needed metoprolol IV ordered. Titrate oxygen as necessary. Acute on chronic heart failure with preserved ejection fraction Weight on admission to the floor; and then daily Strict I&O's Emergency department labs reviewed showed BNP of 360.4. Old records reviewed shows previous BNP of 635.7 on 05/13/2022. BNP Lasix 40 mg IV twice daily ordered. Titrate diuretics and heart failure/blood pressure medications with blood pressure. Kulwant wrap to bilateral lower extremities Fluid restriction of 1500 mls daily cardiac diet ordered History of hypertension Stable Home antihypertensive continued. Trend blood pressures. DVT prophylaxis: Eliquis continued for DVT. Charges/Coding Visit Charges Inpatient E&M: 41906 Init Hosp L3
[2022-06-17 22:35] LABS: Magnesium 2.3 mg/dL (1.6-2.6)
[2022-06-17] MEDS: Furosemide 40 MG/4 ML Vial IV (23:56)
[2022-06-17] MEDS: 0.9% Saline Lock 10 ML Syringe IV (23:57)
[2022-06-17] MEDS: Metoprolol Tartrate 100 MG Tablet PO (23:57)
[2022-06-18] VITALS (13 sets, daily range): BP systolic 104–133; BP diastolic 54–84; PULSE 71–114; RESP 17–21; TEMP 36.2–37.1; O2SAT 93–99; BMI 32.6
[2022-06-18 04:18] LABS: Absolute Lymphocyte Count 1.58 X10^3/uL (0.83-4.51); Absolute Neutrophil Count 7.5 X10^3/uL (2.0-7.7); Basophil# 0.02 X10^3/uL; Basophil% 0.2 % (0-1); Eosinophil# 0.03 X10^3/uL; Eosinophils% 0.3 % (0-5); Hematocrit 37.4 % (37-47); Hemoglobin 11.9 g/dL (12.0-15.0); Lymphocyte # 1.58 X10^3/ul (0.83-4.51); Lymphocyte % 15.2 % (19-41); Mean Corp Hgb Conc 31.8 g/dL (32-36); Mean Corpuscular Hgb 27.5 pg (27.0-32.0); Mean Corpuscular Volume 86.6 fL (81-99); Mean Platelet Vol. 10.7 fl (6.2-12.0); Monocyte# 1.27 X10^3/uL; Monocyte% 12.2 % (0-10); NRBC Flagged by Analyzer 0 % (0-5); Neutrophil # 7.45 X10^3/uL (2.7-7.7); Neutrophil % 71.7 % (47-70); Platelet Count 176 K/mm3 (150-450); RBC Distribution Width SD 44.5 fl (35.1-43.9); Red Blood Count 4.32 M/mm3 (4.2-5.4); White Blood Count 10.4 K/mm3 (4.4-11.0)
[2022-06-18 04:35] LABS: Anion Gap 5 (5-15); BUN 43 mg/dL (7-18); Calcium,Total 8.8 mg/dL (8.5-10.1); Chloride 102 mmol/L (98-107); Creatinine, Serum 1.05 mg/dL (0.55-1.02); EST Glomerular Filtration Rate 54 mL/min (>60); Est Glom Filt Rate - Afr Amer 65 mL/min (>60); Glucose 122 mg/dL (74-106); Potassium 3.9 mmol/L (3.5-5.1); Sodium Level 137 mmol/L (136-145)
[2022-06-18] MEDS: Acetaminophen 500 MG Tablet 1000 MG PO ×3 (06:14→22:17)
[2022-06-18] MEDS: hydrALAZINE 10 MG Tablet PO ×2 (06:14→22:17)
[2022-06-18] MEDS: Furosemide 40 MG/4 ML Vial IV ×2 (10:50→18:52)
[2022-06-18] MEDS: APIXABAN 5 MG TABLET PO ×2 (10:50→22:18)
[2022-06-18] MEDS: 0.9% Saline Lock 10 ML Syringe IV ×2 (10:51→18:54)
--- NOTE | 2022-06-18 12:20 | CASEMGMT ---
RN THEA Face to Face with patient for initial transition planning/care coordination assessment. RN CM introduced self and role at [facility]. Patient lying in bed, alert and oriented, daughter at bedside. Patient willing to participate in assessment and is able to answer all questions appropriately. Care providers, pharmacy, and demographics verified. Patient wishes to discharge home with resumption of HHC if she is able to walk, if not she would like to go to SNF, will monitor progress with therapy. Patient states she has no further needs or concerns at this time. CM to follow for discharge planning needs that may arise. PCP: Charlene Specialists: none Preferred Pharmacy: [facility]; [facility] retail at discharge. Insurance: [facility] Prescription Benefit: none Living Will/HPOA: none LNOK: daughter, son Living Arrangements: Patient lives with daughter in a single story home with 3 steps and railing to enter the home. Daughter assists with ADLs at home. Transportation: driving service DME/HHC: Patient has shower chair, BSC, raised toilet, cane, hospital bed , grab bars, walker, wheelchair. Patient has access to electricity. Patient has been to TCU in the. Patient is active with [facility] for home therapy and [facility] for half-way. Will monitor progress with therapy for appropriate discharge disposition. Disposition Plan: TBD anticipate HHC vs SNF, will monitor progress with therapy. Isabel PEREZ, RN, CM
[2022-06-18] MEDS: Metoprolol Tartrate 100 MG Tablet PO ×2 (12:27→22:18)
--- NOTE | 2022-06-18 15:31 | PN_ITS ---
Subjective Subjective Patient seen and examined. She was admitted overnight with a complaint of shortness of breath. and found to have afib with RVR. She feels much better this morning. Shortness of breath has improved. She denies any chest pain, palpitations, dizziness, nausea, vomiting or diarrhea. Review of systems is otherwise negative. Objective Data Objective Data Vital Signs: Vital Signs Temp Pulse Resp BP Pulse Ox O2 Del Method O2 Flow Rate 97.8 F 83 18 118/54 L 95 Room Air 1 06/18/22 14:29 06/18/22 14:29 06/18/22 14:29 06/18/22 14:29 06/18/22 14:29 06/18/22 14:29 06/18/22 12:24 Oxygen Flow Rate (L/min) 1 Oxygen Delivery Method Room Air Weight: 203 lb 4.259 oz Body Mass Index (BMI) 32.6 Intake & Output: Intake and Output for Last 24 Hours 06/16/22 06/17/22 06/18/22 23:59 23:59 23:59 Intake Total 375 / 375 Output Total 400 / 400 Balance -25 / -25 Lab / Micro Data Result Diagrams: 06/18/22 04:05 06/18/22 04:05 Labs: Laboratory Results - last 24 hr 06/17/22 18:35: WBC 11.6 H, RBC 4.65, Hgb 12.9, Hct 39.6, MCV 85.2, MCH 27.7, MCHC 32.6, RDW Std Deviation 43.9, RDW Coeff of Marissa 14.2, Plt Count 202, MPV 10.9, Immature Gran % (Auto) 0.300, Neut % (Auto) 67.6, Lymph % (Auto) 18.6 L, [place] % (Auto) 12.3 H, Eos % (Auto) 0.9, Baso % (Auto) 0.3, Absolute Neuts (auto) 7.9 H, Absolute Lymphs (auto) 2.16, Nucleated RBC % 0 06/17/22 18:35: Sodium 134 L, Potassium 4.2, Chloride 101, Carbon Dioxide 28.0, Anion Gap 5, BUN 41 H, Creatinine 1.09 H, Est GFR (MDRD) Af Amer 62, Est GFR (MDRD) Non-Af 51 L, BUN/Creatinine Ratio 37.6 H, Glucose 125 H, Calcium 9.3, Total Bilirubin 0.50, AST 11 L, ALT 15, Alkaline Phosphatase 87, Troponin I High Sens 6, Total Protein 7.1, Albumin 3.2, Globulin 3.9, Albumin/Globulin Ratio 0.8 L 06/17/22 18:35: B-Natriuretic Peptide 360.4 H 06/17/22 22:12: Magnesium 2.3 06/18/22 04:05: WBC 10.4, RBC 4.32, Hgb 11.9 L, Hct 37.4, MCV 86.6, MCH 27.5, MCHC 31.8 L, RDW Std Deviation 44.5 H, RDW Coeff of Marissa 14.0, Plt Count 176, MPV 10.7, Immature Gran % (Auto) 0.400, Neut % (Auto) 71.7 H, Lymph % (Auto) 15.2 L, [place] % (Auto) 12.2 H, Eos % (Auto) 0.3, Baso % (Auto) 0.2, Absolute Neuts (auto) 7.5, Absolute Lymphs (auto) 1.58, Nucleated RBC % 0 06/18/22 04:05: Sodium 137, Potassium 3.9, Chloride 102, Carbon Dioxide 30.0, Anion Gap 5, BUN 43 H, Creatinine 1.05 H, Estim Creat Clear Calc 40.00, Est GFR (MDRD) Af Amer 65, Est GFR (MDRD) Non-Af 54 L, BUN/Creatinine Ratio 41.0 H, Glucose 122 H, Calcium 8.8 Radiography Diagnostic Testing: Radiology Impression Chest X-Ray 06/17/22 18:51 IMPRESSION: No radiographic evidence of acute cardiopulmonary disease. Electronically Signed: Carlin Campos MD at 20:06 EDT , Physical Exam Const alert, oriented x3 and no apparent distress General Appearance: cooperative HEENT normocephalic, head/scalp atraumatic, moist oral mucous membranes and oropharynx normal Eyes PERRL and EOMs intact bilaterally Neck supple and no JVD Lymph Lymphatic: no lymphadenopathy noted and no lymphedema noted Resp normal respiratory effort, normal air movement and clear to auscultation bilaterally Cardio regular rate, regular rhythm, S1 normal heart sound, S2 normal heart sound and no murmurs GI normal to inspection, nondistended, normoactive bowel sounds, soft to palpation, non-tender and non-distended Extremity normal capillary refill, no clubbing, cyanosis or edema and no calf tenderness Skin General Skin Exam: no breakdown Neuro CN's II-XII intact bilaterally, no focal motor deficits, no sensory deficits noted and deep tendon reflexes 2+ bilaterally Psych thought process normal and cooperative Appearance: appropriate Assessment & Plan Assessment/Plan (1) Atrial fibrillation with RVR: (2) CHF (congestive heart failure): PLAN: Plan #HYpoxia due to afib with RVR * A-fib with RVR has now resolved. She has known EF of 53% with stage II diastolic dysfunction per echo done in April 2022. * Chest x-ray showed no acute cardiopulmonary process. * On p.o. metoprolol. Heart rate better controlled. * CHADVASC score: at least 4 * will benefit from anticoagulation. On Eliquis 5 mg twice daily * Acute on chronic heart failure preserved ejection fraction: * IV Lasix 40 mg twice daily. * On fluid restriction to 100 cc daily. * Monitor intake and output. * #Hypertension: On losartan and metoprolol as well as amlodipine DVT prophylaxis: Already on Eliquis Total time spent on evaluation and management of patient, reviewing chart and specialist notes, discussing plan with patient , discussion with nursing and ancillary staff as well as documentation: 47 mins Charges/Coding Visit Charges Inpatient E&M: 76297 Subs Hosp L2
[2022-06-18] MEDS: MELATONIN 3 MG TABLET PO (22:17)
[2022-06-18] MEDS: Mirtazapine 15 MG Tablet 7.5 MG PO (22:18)
[2022-06-18] MEDS: amLODIPine 10 MG Tablet PO (22:19)
[2022-06-19] VITALS (13 sets, daily range): BP systolic 110–124; BP diastolic 66–78; PULSE 89–114; RESP 16–22; TEMP 36.6–36.9; O2SAT 92–98; BMI 31.6
[2022-06-19] MEDS: hydrALAZINE 10 MG Tablet PO ×3 (05:40→21:03)
[2022-06-19] MEDS: Acetaminophen 500 MG Tablet 1000 MG PO ×3 (05:41→21:02)
[2022-06-19 07:59] LABS: Absolute Lymphocyte Count 1.49 X10^3/uL (0.83-4.51); Absolute Neutrophil Count 6.9 X10^3/uL (2.0-7.7); Basophil# 0.03 X10^3/uL; Basophil% 0.3 % (0-1); Eosinophil# 0.04 X10^3/uL; Eosinophils% 0.4 % (0-5); Hematocrit 34.7 % (37-47); Hemoglobin 11.3 g/dL (12.0-15.0); Lymphocyte # 1.49 X10^3/ul (0.83-4.51); Lymphocyte % 15.6 % (19-41); Mean Corp Hgb Conc 32.6 g/dL (32-36); Mean Corpuscular Hgb 27.4 pg (27.0-32.0); Mean Corpuscular Volume 84.2 fL (81-99); Mean Platelet Vol. 10.4 fl (6.2-12.0); Monocyte# 1.11 X10^3/uL; Monocyte% 11.6 % (0-10); NRBC Flagged by Analyzer 0 % (0-5); Neutrophil # 6.85 X10^3/uL (2.7-7.7); Neutrophil % 71.7 % (47-70); Platelet Count 184 K/mm3 (150-450); RBC Distribution Width CV 13.7 % (11.6-14.6); RBC Distribution Width SD 42.8 fl (35.1-43.9); Red Blood Count 4.12 M/mm3 (4.2-5.4); White Blood Count 9.6 K/mm3 (4.4-11.0)
[2022-06-19 08:38] LABS: Anion Gap 6 (5-15); BUN 38 mg/dL (7-18); BUN/Creat Ratio 41.6 RATIO (10-20); Calcium,Total 8.7 mg/dL (8.5-10.1); Chloride 100 mmol/L (98-107); Creatinine, Serum 0.91 mg/dL (0.55-1.02); EST Glomerular Filtration Rate 63 mL/min (>60); Est Glom Filt Rate - Afr Amer 76 mL/min (>60); Estimated Creatinine Clearance 46.16 ml/min; Glucose 118 mg/dL (74-106); Potassium 3.3 mmol/L (3.5-5.1); Sodium Level 136 mmol/L (136-145)
[2022-06-19] MEDS: Losartan Potassium 100 MG Tablet PO (09:17)
[2022-06-19] MEDS: Metoprolol Tartrate 100 MG Tablet PO ×2 (09:18→21:01)
[2022-06-19] MEDS: Furosemide 40 MG/4 ML Vial IV ×2 (09:18→18:03)
[2022-06-19] MEDS: APIXABAN 5 MG TABLET PO ×2 (09:18→21:03)
[2022-06-19] MEDS: 0.9% Saline Lock 10 ML Syringe IV (09:19)
--- NOTE | 2022-06-19 10:29 | CASEMGMT ---
Social Work Pt had indicated at admission does not have Healthcare POA but does have Living Will. Neither Healthcare POA or Living Will on file, pt does have a MOLST form on file in the summary tab of the echart however. MANOJ Santiago
--- NOTE | 2022-06-19 12:19 | CASEMGMT ---
Social Work As per PT/OT, pt needed the assist of two people, would benefit from SNF placement. SW met w/pt in room, spoke w/her about going somewhere for rehab. SW provided to pt a list via [facility] of half-way facilities that work w/her insurance, in pt's preferred geographic area, and complete with quality and resource use data. Pt states she was just in TCU and would want to go back there. SW explained will make referral, asked her to review list w/family and come up with some other choices in event TCU does not have a bed. Pt agreeable. SW asked if okay to call daughter Rosalind, pt states this is okay. SW called Rosalind to also review discharge plan w/her, voicemail left. SW made referral to TCU, Coretta in TCU to let SW know about acceptance and bed availability. EMILY will continue to follow. MANOJ Santiago
--- NOTE | 2022-06-19 14:17 | PN_ITS ---
Subjective Subjective Patient seen and examined. She said she felt weak and tired. She denies any chest pain, palpitations, dizziness, cough, chest pain, nausea, vomiting or diarrhea. Review of systems is otherwise negative. Her heart rate has been fluctuating and in the 130s-140s during my review. Review of systems otherwise negative. Objective Data Objective Data Vital Signs: Vital Signs Temp Pulse Resp BP Pulse Ox O2 Del Method O2 Flow Rate 98.1 F 107 H 20 H 124/73 H 98 Room Air 1 06/19/22 07:00 06/19/22 09:18 06/19/22 07:00 06/19/22 09:18 06/19/22 07:53 06/19/22 08:00 06/18/22 12:24 Oxygen Flow Rate (L/min) 1 Oxygen Delivery Method Room Air Weight: 196 lb 13.965 oz Body Mass Index (BMI) 31.6 Intake & Output: Intake and Output for Last 24 Hours 06/17/22 06/18/22 06/19/22 23:59 23:59 23:59 Intake Total 1025 / 1025 Output Total 2650 / 2650 850 / 850 Balance -1625 / -1625 -850 / -850 Lab / Micro Data Result Diagrams: 06/19/22 07:52 06/19/22 07:52 Labs: Laboratory Results - last 24 hr 06/19/22 07:52: WBC 9.6, RBC 4.12 L, Hgb 11.3 L, Hct 34.7 L, MCV 84.2, MCH 27.4, MCHC 32.6, RDW Std Deviation 42.8, RDW Coeff of Marissa 13.7, Plt Count 184, MPV 10.4, Immature Gran % (Auto) 0.400, Neut % (Auto) 71.7 H, Lymph % (Auto) 15.6 L, [place] % (Auto) 11.6 H, Eos % (Auto) 0.4, Baso % (Auto) 0.3, Absolute Neuts (auto) 6.9, Absolute Lymphs (auto) 1.49, Nucleated RBC % 0 06/19/22 07:52: Sodium 136, Potassium 3.3 L, Chloride 100, Carbon Dioxide 30.0, Anion Gap 6, BUN 38 H, Creatinine 0.91, Estim Creat Clear Calc 46.16, Est GFR (MDRD) Af Amer 76, Est GFR (MDRD) Non-Af 63, BUN/Creatinine Ratio 41.6 H, Glucose 118 H, Calcium 8.7 Physical Exam Const alert, oriented x3 and no apparent distress General Appearance: cooperative HEENT normocephalic, head/scalp atraumatic, moist oral mucous membranes and oropharynx normal Eyes PERRL and EOMs intact bilaterally Neck supple and no JVD Lymph Lymphatic: no lymphadenopathy noted and no lymphedema noted Resp normal respiratory effort, normal air movement and clear to auscultation bilaterally Cardio S1 normal heart sound, S2 normal heart sound and no murmurs Cardio Narrative: afib, tachycardic GI normal to inspection, nondistended, normoactive bowel sounds, soft to palpation, non-tender and non-distended Extremity normal capillary refill, no clubbing, cyanosis or edema and no calf tenderness Skin General Skin Exam: no breakdown Neuro CN's II-XII intact bilaterally, no focal motor deficits, no sensory deficits noted and deep tendon reflexes 2+ bilaterally Psych thought process normal and cooperative Appearance: appropriate Assessment & Plan Assessment/Plan (1) Atrial fibrillation with RVR: (2) CHF (congestive heart failure): PLAN: Plan #HYpoxia due to afib with RVR * still in afib with RVR. Heart rate in the 130s-140s. * She has known EF of 53% with stage II diastolic dysfunction per echo done in April 2022. * Chest x-ray showed no acute cardiopulmonary process. * On p.o. metoprolol. * CHADVASC score: at least 4 * On Eliquis 5 mg twice daily * cardiology consulted due to poorly controlled heart rate * Acute on chronic heart failure preserved ejection fraction: * IV Lasix 40 mg twice daily. * On fluid restriction to 100 cc daily. * Monitor intake and output. * #Afib with RVR: as above. #Hypokalemia: K is 3.3. Will replace and trend #Hypertension: On losartan and metoprolol as well as amlodipine DVT prophylaxis: Already on Eliquis Total time spent on evaluation and management of patient, reviewing chart and specialist notes, discussing plan with patient , discussion with nursing and ancillary staff as well as documentation: 45 mins Charges/Coding Visit Charges Inpatient E&M: [address] [place] [id number]
--- NOTE | 2022-06-19 15:06 | CON.PCM.CA_ITS ---
Assessment & Plan Assessment/Plan (1) Atrial fibrillation with RVR: PLAN: Continue on metoprolol. Start on diltiazem. Continue Eliquis for anticoagulation. (2) CHF (congestive heart failure): PLAN: Heart failure with preserved ejection fraction. Agree with furosemide. Start on Jardiance. (3) Hypertension: PLAN: Controlled. HPI Consult Data Date of Consult: 06/19/22 HPI Narrative Reason for Consultation: Atrial fibrillation with rapid ventricular response HPI Narrative: The patient presented to the hospital with complaints of progressive shortness of breath. Positive orthopnea and PND. Also positive ankle swelling. She was noted to be in atrial fibrillation with rapid ventricular response. Received diltiazem bolus in the emergency room. Presently she is on beta-blockers and IV diuretics. Patient has history of heart failure with preserved ejection fraction and chronic atrial fibrillation. [facility] Medical History Anxiety Depression Dizziness Hypertension Severe uncontrolled hypertension Syncope and collapse Home Medications acetaminophen 500 mg tablet 1,000 mg PO Q8 #0 tabs 06/06/22 [Rx Last Taken 06/15/22] amlodipine 10 mg tablet 10 mg PO QHS 30 days #30 tabs 06/06/22 [Rx Last Taken 06/16/22] apixaban 5 mg tablet (Eliquis) 5 mg PO BID 30 days #60 tabs 06/06/22 [Rx Last Taken 06/17/22] hydralazine 10 mg tablet 10 mg PO TID 30 days #90 tabs 06/06/22 [Rx Last Taken 06/17/22] losartan 100 mg tablet 100 mg PO DAILY 30 days #30 tabs 06/06/22 [Rx Last Taken 06/17/22] metoprolol tartrate 100 mg tablet 100 mg PO BID 30 days #60 tabs 06/06/22 [Rx Last Taken 06/17/22] mirtazapine 15 mg tablet 7.5 mg PO QHS 30 days #15 tabs 06/06/22 [Rx Last Taken 06/16/22] tramadol 50 mg tablet 50 mg PO Q6H PRN PRN Pain Score 4-10 7 days #28 tabs 06/06/22 [Rx Last Taken 06/17/22] Allergy/AdvReac Type Severity Reaction Status Date / Time No Known Allergies Allergy Verified 06/17/22 17:48 Family History Mother Heart disease Surgical History History of hernia repair Social History household members: none Smoking Status: Never smoker alcohol intake: never substance use type: does not use Physical Exam Narrative Appears comfortable. No acute distress. Positive JVD. Heart sounds 1 and 2 noted. Irregularly irregular. Tachycardic. Chest examination reveals bibasilar crackles. Abdomen soft. Alert oriented x3. 2+ lower extremity edema noted. Risk Stratification Risk Stratification Applicable: No Objective Data Vital Signs: Vital Signs Temp Pulse Resp BP Pulse Ox O2 Del Method O2 Flow Rate 98.1 F 97 20 H 119/75 98 Room Air 1 06/19/22 07:00 06/19/22 14:41 06/19/22 07:00 06/19/22 14:41 06/19/22 07:53 06/19/22 08:00 06/18/22 12:24 Oxygen Flow Rate (L/min) 1 Oxygen Delivery Method Room Air Weight: 196 lb 13.965 oz Body Mass Index (BMI) 31.6 Intake & Output: Intake and Output for Last 24 Hours 06/17/22 06/18/22 06/19/22 23:59 23:59 23:59 Intake Total 1025 / 1025 Output Total 2650 / 2650 1700 / 1700 Balance -1625 / -1625 -1700 / -1700 Lab / Micro Data Attestation: I reviewed the patient's lab results. Result Diagrams: 06/19/22 07:52 06/19/22 07:52 Labs: Laboratory Results - last 24 hr 06/19/22 07:52: WBC 9.6, RBC 4.12 L, Hgb 11.3 L, Hct 34.7 L, MCV 84.2, MCH 27.4, MCHC 32.6, RDW Std Deviation 42.8, RDW Coeff of Marissa 13.7, Plt Count 184, MPV 10.4, Immature Gran % (Auto) 0.400, Neut % (Auto) 71.7 H, Lymph % (Auto) 15.6 L, [place] % (Auto) 11.6 H, Eos % (Auto) 0.4, Baso % (Auto) 0.3, Absolute Neuts (auto) 6.9, Absolute Lymphs (auto) 1.49, Nucleated RBC % 0 06/19/22 07:52: Sodium 136, Potassium 3.3 L, Chloride 100, Carbon Dioxide 30.0, Anion Gap 6, BUN 38 H, Creatinine 0.91, Estim Creat Clear Calc 46.16, Est GFR (MDRD) Af Amer 76, Est GFR (MDRD) Non-Af 63, BUN/Creatinine Ratio 41.6 H, Glucose 118 H, Calcium 8.7 Rhythm Strip Rhythm Strip: A-fib Cardiology Labs/Tests 06/19/22 07:52: WBC 9.6, RBC 4.12 L, Hgb 11.3 L, Hct 34.7 L, MCV 84.2, MCH 27.4, MCHC 32.6, Plt Count 184, MPV 10.4, Immature Gran % (Auto) 0.400, Neut % (Auto) 71.7 H, Lymph % (Auto) 15.6 L, [place] % (Auto) 11.6 H, Eos % (Auto) 0.4, Baso % (Auto) 0.3, Absolute Neuts (auto) 6.9, Nucleated RBC % 0 06/19/22 07:52: Sodium 136, Potassium 3.3 L, Chloride 100, Carbon Dioxide 30.0, Anion Gap 6, BUN 38 H, Creatinine 0.91, Est GFR (MDRD) Af Amer 76, Est GFR (MDRD) Non-Af 63, BUN/Creatinine Ratio 41.6 H, Glucose 118 H, Calcium 8.7 Rhythm: Atrial fibrillation with rapid ventricular response. EKG: Atrial fibrillation with rapid ventricular response. Nonspecific ST foy ges. ECHO: Echo done in April of this year revealed normal left ventricular systolic function. Grade 2 diastolic dysfunction was noted. Stress Test: Cardiac Cath: PCI: CT Surgery: Holter monitor: EPS: PPM: CXR: Chest CT Scan:
[2022-06-19] MEDS: traMADol 50 MG Tablet PO (17:56)
[2022-06-19] MEDS: dilTIAZem 60 MG Tablet PO ×2 (17:56→23:39)
[2022-06-19] MEDS: Mirtazapine 15 MG Tablet 7.5 MG PO (21:03)
[2022-06-20] VITALS (13 sets, daily range): BP systolic 106–122; BP diastolic 57–84; PULSE 62–110; RESP 16–22; TEMP 36.3–36.6; O2SAT 94–98; BMI 32.4
--- NOTE | 2022-06-20 05:39 | NURSING ---
Downtime on 06/20/22 from [id number].
[2022-06-20] MEDS: hydrALAZINE 10 MG Tablet PO ×3 (06:15→22:40)
[2022-06-20] MEDS: Acetaminophen 500 MG Tablet 1000 MG PO ×3 (06:15→22:37)
[2022-06-20] MEDS: dilTIAZem 60 MG Tablet PO ×4 (06:16→22:39)
--- NOTE | 2022-06-20 09:30 | PCM.PN.CARD ---
Subjective Subjective Feeling better. No complaints. Objective Data Vital Signs: Vital Signs Temp Pulse Resp BP Pulse Ox O2 Del Method O2 Flow Rate 97.3 F L 85 18 106/69 97 Room Air 1 06/20/22 08:00 06/20/22 08:51 06/20/22 08:00 06/20/22 08:00 06/20/22 08:00 06/20/22 08:51 06/18/22 12:24 Oxygen Flow Rate (L/min) 1 Oxygen Delivery Method Room Air Weight: 201 lb 15.095 oz Body Mass Index (BMI) 32.4 Intake & Output: Intake and Output for Last 24 Hours 06/18/22 06/19/22 06/20/22 23:59 23:59 23:59 Intake Total 1025 / 1025 120 / 120 100 / 100 Output Total 2650 / 2650 1850 / 2100 250 / 250 Balance -1625 / -1625 -1730 / -1980 -150 / -150 Lab / Micro Data Result Diagrams: 06/19/22 07:52 06/19/22 07:52 Rhythm Strip Rhythm Strip: A-fib Cardiology Labs/Tests Rhythm: EKG: ECHO: Stress Test: Cardiac Cath: PCI: CT Surgery: Holter monitor: EPS: PPM: CXR: Chest CT Scan: Physical Exam Narrative Appears comfortable. No acute distress. Positive JVD. Heart sounds 1 and 2 noted. Irregularly irregular. Tachycardic. Chest examination reveals bibasilar crackles. Abdomen soft. Alert oriented x3. 2+ lower extremity edema noted. Assessment & Plan Assessment/Plan (1) Atrial fibrillation with RVR: PLAN: On Eliquis. Continue on metoprolol and diltiazem for rate control. (2) CHF (congestive heart failure): PLAN: Heart failure with preserved ejection fraction. Agree with furosemide. Start on Jardiance. (3) Hypertension: PLAN: Controlled.
[2022-06-20] MEDS: Metoprolol Tartrate 100 MG Tablet PO ×2 (10:48→22:40)
[2022-06-20] MEDS: Losartan Potassium 100 MG Tablet PO (10:48)
[2022-06-20] MEDS: Furosemide 40 MG/4 ML Vial IV ×2 (10:48→17:10)
[2022-06-20] MEDS: APIXABAN 5 MG TABLET PO ×2 (10:49→22:38)
[2022-06-20] MEDS: Empagliflozin 10 MG Tablet PO (10:58)
[2022-06-20] MEDS: 0.9% Saline Lock 10 ML Syringe IV (10:59)
--- NOTE | 2022-06-20 11:26 | PN_ITS ---
Subjective Subjective Patient seen and examined. He states he felt much better today. Her heart rate was much better controlled. She does still feel weak. Review of systems otherwise negative. Objective Data Objective Data Vital Signs: Vital Signs Temp Pulse Resp BP Pulse Ox O2 Del Method O2 Flow Rate 97.3 F L 71 18 106/69 97 Room Air 1 06/20/22 08:00 06/20/22 10:48 06/20/22 08:00 06/20/22 10:48 06/20/22 08:00 06/20/22 08:51 06/18/22 12:24 Oxygen Flow Rate (L/min) 1 Oxygen Delivery Method Room Air Weight: 201 lb 15.095 oz Body Mass Index (BMI) 32.4 Intake & Output: Intake and Output for Last 24 Hours 06/18/22 06/19/22 06/20/22 23:59 23:59 23:59 Intake Total 1025 / 1025 120 / 120 100 / 100 Output Total 2650 / 2650 1850 / 2100 250 / 250 Balance -1625 / -1625 -1730 / -1980 -150 / -150 Lab / Micro Data Result Diagrams: 06/19/22 07:52 06/19/22 07:52 Rhythm Strip Rhythm Strip: A-fib Physical Exam Const alert, oriented x3 and no apparent distress General Appearance: cooperative HEENT normocephalic, head/scalp atraumatic, moist oral mucous membranes and oropharynx normal Eyes PERRL and EOMs intact bilaterally Neck supple and no JVD Lymph Lymphatic: no lymphadenopathy noted and no lymphedema noted Resp normal respiratory effort, normal air movement and clear to auscultation bilaterally Cardio S1 normal heart sound, S2 normal heart sound and no murmurs Cardio Narrative: afib, GI normal to inspection, nondistended, normoactive bowel sounds, soft to palpation, non-tender and non-distended Extremity normal capillary refill, no clubbing, cyanosis or edema and no calf tenderness Skin General Skin Exam: no breakdown Neuro CN's II-XII intact bilaterally, no focal motor deficits, no sensory deficits noted and deep tendon reflexes 2+ bilaterally Psych thought process normal, cooperative and affect normal Appearance: appropriate Assessment & Plan Assessment/Plan (1) Atrial fibrillation with RVR: (2) CHF (congestive heart failure): PLAN: Plan #HYpoxia due to afib with RVR * now rate controlled and in normal sinus rhythm * HR down in the 80s systolic. * She has known EF of 53% with stage II diastolic dysfunction per echo done in April 2022. * Chest x-ray showed no acute cardiopulmonary process. * On p.o. metoprolol 100mg bid and cardizem 60mg q6 * CHADVASC score: at least 4 * On Eliquis 5 mg twice daily * cardiology on board * now on room air * Acute on chronic heart failure preserved ejection fraction: * IV Lasix 40 mg twice daily. * On fluid restriction to 100 cc daily. * Monitor intake and output. * #Afib with RVR: as above. #Hypokalemia: will replace as per protocol and trend #Hypertension: On losartan and metoprolol as well as amlodipine DVT prophylaxis: Already on Eliquis Total time spent on evaluation and management of patient, reviewing chart and specialist notes, discussing plan with patient , discussion with nursing and ancillary staff as well as documentation: 43 mins Charges/Coding Visit Charges Inpatient E&M: 04897 Subs Hosp L2
--- NOTE | 2022-06-20 13:48 | CASEMGMT ---
TCU is able to take patient. SW will notify patient and her daughter. Bertha Lowery MSW LEONID
--- NOTE | 2022-06-20 15:15 | CASEMGMT ---
Social Work SW met with pt and family and updated that pt has been accepted to TCU when medically ready. BOBO Asif
[2022-06-20 16:50] LABS: Anion Gap 7 (5-15); BUN 39 mg/dL (7-18); BUN/Creat Ratio 35.8 RATIO (10-20); Calcium,Total 8.9 mg/dL (8.5-10.1); Chloride 98 mmol/L (98-107); Creatinine, Serum 1.09 mg/dL (0.55-1.02); EST Glomerular Filtration Rate 51 mL/min (>60); Est Glom Filt Rate - Afr Amer 62 mL/min (>60); Estimated Creatinine Clearance 38.54 ml/min; Glucose 140 mg/dL (74-106); Potassium 3.2 mmol/L (3.5-5.1); Sodium Level 137 mmol/L (136-145)
[2022-06-20] MEDS: traMADol 50 MG Tablet PO (19:02)
[2022-06-20] MEDS: Mirtazapine 15 MG Tablet 7.5 MG PO (22:38)
[2022-06-21] VITALS (9 sets, daily range): BP systolic 116–119; BP diastolic 50–68; PULSE 55–65; RESP 14–18; TEMP 36.5–36.7; O2SAT 94–98; BMI 31.1
[2022-06-21] MEDS: hydrALAZINE 10 MG Tablet PO ×2 (06:12→14:05)
[2022-06-21] MEDS: Acetaminophen 500 MG Tablet 1000 MG PO ×2 (06:12→14:05)
[2022-06-21] MEDS: APIXABAN 5 MG TABLET PO (09:22)
[2022-06-21] MEDS: Empagliflozin 10 MG Tablet PO (09:22)
[2022-06-21] MEDS: Metoprolol Tartrate 100 MG Tablet PO (09:22)
[2022-06-21] MEDS: Furosemide 40 MG/4 ML Vial IV (09:22)
[2022-06-21] MEDS: Losartan Potassium 100 MG Tablet PO (09:22)
[2022-06-21] MEDS: 0.9% Saline Lock 10 ML Syringe IV (09:23)
[2022-06-21 10:30] LABS: Absolute Lymphocyte Count 1.69 X10^3/uL (0.83-4.51); Absolute Neutrophil Count 4.5 X10^3/uL (2.0-7.7); Basophil# 0.04 X10^3/uL; Basophil% 0.6 % (0-1); Eosinophils% 2.8 % (0-5); Hematocrit 39.3 % (37-47); Hemoglobin 12.7 g/dL (12.0-15.0); Lymphocyte # 1.69 X10^3/ul (0.83-4.51); Lymphocyte % 23.9 % (19-41); Mean Corp Hgb Conc 32.3 g/dL (32-36); Mean Corpuscular Hgb 27.5 pg (27.0-32.0); Mean Corpuscular Volume 85.2 fL (81-99); Mean Platelet Vol. 10.3 fl (6.2-12.0); Monocyte# 0.62 X10^3/uL; Monocyte% 8.8 % (0-10); NRBC Flagged by Analyzer 0 % (0-5); Neutrophil # 4.48 X10^3/uL (2.7-7.7); Neutrophil % 63.5 % (47-70); Platelet Count 256 K/mm3 (150-450); RBC Distribution Width CV 13.8 % (11.6-14.6); RBC Distribution Width SD 43.1 fl (35.1-43.9); Red Blood Count 4.61 M/mm3 (4.2-5.4); White Blood Count 7.1 K/mm3 (4.4-11.0)
[2022-06-21 11:04] LABS: Anion Gap 7 (5-15); BUN 43 mg/dL (7-18); BUN/Creat Ratio 41.7 RATIO (10-20); Calcium,Total 9.1 mg/dL (8.5-10.1); Chloride 98 mmol/L (98-107); Creatinine, Serum 1.03 mg/dL (0.55-1.02); EST Glomerular Filtration Rate 55 mL/min (>60); Est Glom Filt Rate - Afr Amer 66 mL/min (>60); Estimated Creatinine Clearance 40.78 ml/min; Glucose 179 mg/dL (74-106); Potassium 3.2 mmol/L (3.5-5.1); Sodium Level 136 mmol/L (136-145)
[2022-06-21] MEDS: dilTIAZem 60 MG Tablet PO (11:19)
--- NOTE | 2022-06-21 11:44 | CASEMGMT ---
EMILY confirmed with patient and family that the plan is for patient to go to [facility] TCU when medically ready. EMILY will notify physician. Plan: d/c to [facility] TCU when medically ready. Bertha JAQUEZ
--- NOTE | 2022-06-21 13:19 | PCM.TXEXTCAR ---
Diet Diet Order/Speech Therapy: 06/17/22 23:18 Diet: Cardiac - Heart Healthy Food consistency:: Regular Liquid Consistency:: Regular/Thin Dietary Modifications:: Sodium Restricted Fluid restriction:: 1500 mL Routine Orders/Code Status Enema Type: Fleetz Enema Frequency: Daily PRN Suppository Type: Dulcolax 10mg Suppository Frequency: Daily PRN O2 Frequency: PRN Keep PO Greater than or Equal to (%): 90 Therapies Weight Bearing: Weight bearing as tolerated Physical Therapy: Eval and Treat Occupational Therapy: Eval and Treat Problem/Diagnosis (1) Atrial fibrillation with RVR: Status: Acute Code(s): I48.91 - Unspecified atrial fibrillation (2) CHF (congestive heart failure): Status: Acute Code(s): I50.9 - Heart failure, unspecified Allergies/Procedures Done in Hospital Allergies No Known Allergies Allergy (Verified 06/17/22 17:48) Procedures: 2-D Echocardiogram Type of Care/Length of Stay Estimated LOS: Convalescent Care Less Than 30 days Type of Care Needed: Skilled Rehab Potential: Fair Prognosis: Fair Additional Orders/Day of Discharge Day of Discharge: 06/21/22 Dietary and Speech Recommendations Dietitian Recommendations/Changes: Continue cardiac/sodium-restricted diet with 1500ml/day fluid restriction. ONS if PO fails, not indicated at this time. Diet instruction prior to d/c as pt willing. Discharge Plan Admission Admit Date/Time: 06/17/22 22:02 Primary Reason for Your Visit: afib with RVR Attending Provider: Antonia Flowers Primary Care Provider: Aneesh Chang Consulting Providers: Jayson Vidales ; Laith Bear Instructions Patient Instructions: AFib Dc Discharge Orders/Prescriptions Prescriptions: New Jardiance 10 mg Tablet 10 mg PO DAILY Qty: 60 1RF diltiazem HCl [Cardizem CD] 240 mg capsule,extended release 24hr 240 mg PO DAILY Qty: 30 2RF furosemide 40 mg tablet 40 mg PO BID Qty: 60 2RF potassium chloride [Klor-Con M20] 20 mEq tablet,ER particles/crystals 20 meq PO DAILY Qty: 30 1RF Continued hydralazine 10 mg Tablet 10 mg PO TID 30 Days Qty: 90 0RF metoprolol tartrate 100 mg Tablet 100 mg PO BID 30 Days Qty: 60 0RF tramadol 50 mg Tablet 50 mg PO Q6H PRN PRN (Reason: Pain Score 4-10) 7 Days Qty: 28 0RF acetaminophen 500 mg Tablet 1,000 mg PO Q8 Qty: 0 0RF mirtazapine 15 mg Tablet 7.5 mg PO QHS 30 Days Qty: 15 0RF losartan 100 mg Tablet 100 mg PO DAILY 30 Days Qty: 30 0RF Eliquis 5 mg Tablet 5 mg PO BID 30 Days Qty: 60 0RF Discontinued amlodipine 10 mg Tablet 10 mg PO QHS 30 Days Qty: 30 0RF Referrals / Follow Up: Laith Bear MD [Med Staff - Active Staff] - Within 2 Weeks Aneesh Chang MD [Primary Care Provider] - Within 2 Weeks Disposition Disposition (needs filled in before D/C Order can be placed): Intermediate Facility Charges/Coding Visit Charges Inpatient E&M: 99981 Disch Hosp >30min
--- NOTE | 2022-06-21 13:21 | DS.PCM_ITS ---
Providers Date of Admission: 06/17/22 Date of Discharge: 06/21/22 Primary Care Physician: Dr. Aneesh Chang MD Consultations 06/19/22 10:50 Consult: Cardiology Routine Consulting Provider: Laith Bear Reason for Consult: afib with RVR EMERGENT Consult: No MD Notified: Yes Date Notified: 06/19/22 Time Notified: 10:50 Method of Notification: Text Reason For Visit: A-FIB RVR, ACUTE ON CHRONIC HEART FAILURE WITH PRE Diagnosis Discharge Diagnosis (1) Atrial fibrillation with RVR: Status: Acute Code(s): I48.91 - Unspecified atrial fibrillation (2) CHF (congestive heart failure): Status: Acute Code(s): I50.9 - Heart failure, unspecified Medications at Discharge Home Medications acetaminophen 500 mg tablet 1,000 mg PO Q8 #0 tabs 06/06/22 apixaban 5 mg tablet (Eliquis) 5 mg PO BID 30 days #60 tabs 06/06/22 hydralazine 10 mg tablet 10 mg PO TID 30 days #90 tabs 06/06/22 losartan 100 mg tablet 100 mg PO DAILY 30 days #30 tabs 06/06/22 metoprolol tartrate 100 mg tablet 100 mg PO BID 30 days #60 tabs 06/06/22 mirtazapine 15 mg tablet 7.5 mg PO QHS 30 days #15 tabs 06/06/22 tramadol 50 mg tablet 50 mg PO Q6H PRN PRN Pain Score 4-10 7 days #28 tabs 06/06/22 diltiazem HCl 240 mg capsule,extended release 24 hr (Cardizem CD) 240 mg PO DAILY #30 caps 06/21/22 empagliflozin 10 mg tablet (Jardiance) 10 mg PO DAILY #60 tabs 06/21/22 furosemide 40 mg tablet 40 mg PO BID #60 tabs 06/21/22 potassium chloride 20 mEq tablet,extended release(part/cryst) (Klor-Con M) 20 meq PO DAILY #30 tabs 06/21/22 Hospital Course Operations None Procedures 2-D Echocardiogram Summary of Care Provided Minutes Spent on Discharge: 55 Hospital Course: Patient is an 82-year-old female with a past medical history as outlined including A-fib and heart failure preserved ejection fraction was admitted through the ED on 06/17/2022 with a complaint of progressively worsening shortness of breath for about 2 days which increased with exertion. She had recently been discharged in May from the transitional care unit. He had a stat orthopnea and PND. On admission she was saturating at 88% on room air. She was found to be in A-fib with RVR on admission. BNP was also elevated. She was admitted and managed for A-fib with RVR as well as hypoxia due to A-fib with RVR and acute on chronic heart failure presented to infection. She was diuresed with IV Lasix. She was started on Cardizem drip but was weaned off of this and put on her home metoprolol. Cardiology was consulted. She was placed on p.o. Cardizem. Her heart rate gradually improved and she felt better. Patient had been on Eliquis for DVT and A-fib. She remained stable and improved and heart rate became controlled. [facility]. She was discharged on p.o. metoprolol as well as p.o. Cardizem to 40 mg daily. She is to follow-up with her primary care doctor as well as cardiology. Patient seen and examined prior to discharge. She had no complaints and had an uneventful night. Review of systems otherwise negative. Labs and vitals reviewed. Home medication reviewed and reconciled. Physical Exam Const alert, oriented x3 and no apparent distress General Appearance: cooperative and comfortable Orientation / Consciousness: awake HEENT normocephalic, head/scalp atraumatic, hearing grossly normal bilaterally and moist oral mucous membranes Mouth: oral and palatal mucosa normal Neck no lymphadenopathy and supple Resp normal respiratory effort, no retractions and no use of accessory muscles Cardio regular rate, regular rhythm, S1 normal heart sound, S2 normal heart sound and no murmurs GI normal to inspection, nondistended, normoactive bowel sounds, soft to palpation and non-tender Extremity normal to inspection and full ROM Skin no rashes or lesions noted and no wounds Neuro oriented x3, CN's II-XII intact bilaterally and moves all extremities Sensorium / Orientation: awake and alert Motor Exam: strength 5/5 throughout Psych affect normal Weight / BMI Weight Weight: 193 lb 9.054 oz Body Mass Index (BMI) 31.1 ABG / Lab / Microbiology Data Result Diagrams: 06/21/22 10:16 06/21/22 10:16 Laboratory: Laboratory Results - last 24 hr 06/20/22 15:20: Sodium 137, Potassium 3.2 L, Chloride 98, Carbon Dioxide 32.0, Anion Gap 7, BUN 39 H, Creatinine 1.09 H, Estim Creat Clear Calc 38.54, Est GFR (MDRD) Af Amer 62, Est GFR (MDRD) Non-Af 51 L, BUN/Creatinine Ratio 35.8 H, Glucose 140 H, Calcium 8.9 06/21/22 10:16: WBC 7.1, RBC 4.61, Hgb 12.7, Hct 39.3, MCV 85.2, MCH 27.5, MCHC 32.3, RDW Std Deviation 43.1, RDW Coeff of Marissa 13.8, Plt Count 256, MPV 10.3, Immature Gran % (Auto) 0.400, Neut % (Auto) 63.5, Lymph % (Auto) 23.9, [place] % (Auto) 8.8, Eos % (Auto) 2.8, Baso % (Auto) 0.6, Absolute Neuts (auto) 4.5, Absolute Lymphs (auto) 1.69, Nucleated RBC % 0 06/21/22 10:16: Sodium 136, Potassium 3.2 L, Chloride 98, Carbon Dioxide 31.0, Anion Gap 7, BUN 43 H, Creatinine 1.03 H, Estim Creat Clear Calc 40.78, Est GFR (MDRD) Af Amer 66, Est GFR (MDRD) Non-Af 55 L, BUN/Creatinine Ratio 41.7 H, Glucose 179 H, Calcium 9.1 D/C Instructions Discharge Diet: Low fat / Low cholesterol Discharge Activity: Return to Normal Activity Weight Bearing Status: Weight bearing as tolerated Call your doctor if you observe: Fever of 101 or Higher, Shortness of breath, Dizziness, Swelling in the ankles, Chest pain and Increased palpitations (irregular heartbeat) Meaningful Use Info Meaningful Use Diagnoses (Choose all that apply): CHF CHF DUNIA/ARB ordered at discharge?: Yes Documented LVEF (%): 53 Discharge Plan Admission Admit Date/Time: 06/17/22 22:02 Primary Reason for Your Visit: afib with RVR Attending Provider: Antonia Flowers Primary Care Provider: Aneesh Chang Consulting Providers: Jayson Vidales ; Laith Bear Instructions Patient Instructions: AFib Dc Discharge Orders/Prescriptions Prescriptions: New Jardiance 10 mg Tablet 10 mg PO DAILY Qty: 60 1RF diltiazem HCl [Cardizem CD] 240 mg capsule,extended release 24hr 240 mg PO DAILY Qty: 30 2RF furosemide 40 mg tablet 40 mg PO BID Qty: 60 2RF potassium chloride [Klor-Con M20] 20 mEq tablet,ER particles/crystals 20 meq PO DAILY Qty: 30 1RF Continued hydralazine 10 mg Tablet 10 mg PO TID 30 Days Qty: 90 0RF metoprolol tartrate 100 mg Tablet 100 mg PO BID 30 Days Qty: 60 0RF tramadol 50 mg Tablet 50 mg PO Q6H PRN PRN (Reason: Pain Score 4-10) 7 Days Qty: 28 0RF acetaminophen 500 mg Tablet 1,000 mg PO Q8 Qty: 0 0RF mirtazapine 15 mg Tablet 7.5 mg PO QHS 30 Days Qty: 15 0RF losartan 100 mg Tablet 100 mg PO DAILY 30 Days Qty: 30 0RF Eliquis 5 mg Tablet 5 mg PO BID 30 Days Qty: 60 0RF Discontinued amlodipine 10 mg Tablet 10 mg PO QHS 30 Days Qty: 30 0RF Referrals / Follow Up: Laith Bear MD [Med Staff - Active Staff] - Within 2 Weeks Aneesh Chang MD [Primary Care Provider] - Within 2 Weeks Disposition Disposition (needs filled in before D/C Order can be placed): Nursing Home Facility Charges/Coding Visit Charges Inpatient E&M: 58286 Disch Hosp >30min
--- NOTE | 2022-06-21 13:55 | PCM.PN.CARD ---
Subjective Subjective Patient doing good. Denies any complaints. Feels better. Objective Data Vital Signs: Vital Signs Temp Pulse Resp BP Pulse Ox O2 Del Method O2 Flow Rate 98.0 F 65 18 116/53 L 95 Room Air 1 06/21/22 09:23 06/21/22 09:23 06/21/22 09:23 06/21/22 09:23 06/21/22 09:23 06/21/22 09:50 06/18/22 12:24 Oxygen Flow Rate (L/min) 1 Oxygen Delivery Method Room Air Weight: 193 lb 9.054 oz Body Mass Index (BMI) 31.1 Intake & Output: Intake and Output for Last 24 Hours 06/19/22 06/20/22 06/21/22 23:59 23:59 23:59 Intake Total 120 / 120 640 / 960 730 / 730 Output Total 1850 / 2100 550 / 950 800 / 800 Balance -1730 / -1980 90 / 10 -70 / -70 Lab / Micro Data Result Diagrams: 06/21/22 10:16 06/21/22 10:16 Labs: Laboratory Results - last 24 hr 06/20/22 15:20: Sodium 137, Potassium 3.2 L, Chloride 98, Carbon Dioxide 32.0, Anion Gap 7, BUN 39 H, Creatinine 1.09 H, Estim Creat Clear Calc 38.54, Est GFR (MDRD) Af Amer 62, Est GFR (MDRD) Non-Af 51 L, BUN/Creatinine Ratio 35.8 H, Glucose 140 H, Calcium 8.9 06/21/22 10:16: WBC 7.1, RBC 4.61, Hgb 12.7, Hct 39.3, MCV 85.2, MCH 27.5, MCHC 32.3, RDW Std Deviation 43.1, RDW Coeff of Marissa 13.8, Plt Count 256, MPV 10.3, Immature Gran % (Auto) 0.400, Neut % (Auto) 63.5, Lymph % (Auto) 23.9, [place] % (Auto) 8.8, Eos % (Auto) 2.8, Baso % (Auto) 0.6, Absolute Neuts (auto) 4.5, Absolute Lymphs (auto) 1.69, Nucleated RBC % 0 06/21/22 10:16: Sodium 136, Potassium 3.2 L, Chloride 98, Carbon Dioxide 31.0, Anion Gap 7, BUN 43 H, Creatinine 1.03 H, Estim Creat Clear Calc 40.78, Est GFR (MDRD) Af Amer 66, Est GFR (MDRD) Non-Af 55 L, BUN/Creatinine Ratio 41.7 H, Glucose 179 H, Calcium 9.1 Rhythm Strip Rhythm Strip: A-fib Cardiology Labs/Tests 06/20/22 15:20: Sodium 137, Potassium 3.2 L, Chloride 98, Carbon Dioxide 32.0, Anion Gap 7, BUN 39 H, Creatinine 1.09 H, Est GFR (MDRD) Af Amer 62, Est GFR (MDRD) Non-Af 51 L, BUN/Creatinine Ratio 35.8 H, Glucose 140 H, Calcium 8.9 06/21/22 10:16: WBC 7.1, RBC 4.61, Hgb 12.7, Hct 39.3, MCV 85.2, MCH 27.5, MCHC 32.3, Plt Count 256, MPV 10.3, Immature Gran % (Auto) 0.400, Neut % (Auto) 63.5, Lymph % (Auto) 23.9, [place] % (Auto) 8.8, Eos % (Auto) 2.8, Baso % (Auto) 0.6, Absolute Neuts (auto) 4.5, Nucleated RBC % 0 06/21/22 10:16: Sodium 136, Potassium 3.2 L, Chloride 98, Carbon Dioxide 31.0, Anion Gap 7, BUN 43 H, Creatinine 1.03 H, Est GFR (MDRD) Af Amer 66, Est GFR (MDRD) Non-Af 55 L, BUN/Creatinine Ratio 41.7 H, Glucose 179 H, Calcium 9.1 Rhythm: EKG: ECHO: Stress Test: Cardiac Cath: PCI: CT Surgery: Holter monitor: EPS: PPM: CXR: Chest CT Scan: Physical Exam Narrative Appears comfortable. No acute distress. Positive JVD. Heart sounds 1 and 2 noted. Irregularly irregular. Rate controlled. Chest examination reveals bibasilar crackles. Abdomen soft. Alert oriented x3. Trace ankle edema. Assessment & Plan Assessment/Plan (1) Atrial fibrillation with RVR: PLAN: On Eliquis. Continue on metoprolol and diltiazem for rate control. (2) CHF (congestive heart failure): PLAN: Heart failure with preserved ejection fraction. Agree with furosemide. (3) Hypertension: PLAN: Controlled.
== END 2022-06-21 15:56 | disposition skilled nursing facility (03) | DRG 291 ==
LOC: ED 20:19 → ICU 22:31 → PCU 06-21 03:53
PROVIDERS: Admitting Provider Hospitalist; Emergency Provider Emergency Medicine; PCP Internal Medicine Infectious Disease; Visit Provider Student in an Organized Health Care Education/Training Program
DX: I11.0 Hypertensive heart disease with heart failure (principal); I50.33 Acute on chronic diastolic (congestive) heart failure; E87.6 Hypokalemia; Z79.01 Long term (current) use of anticoagulants; I48.91 Unspecified atrial fibrillation
CPT/HCPCS: 36415; 71045; 80048; 80053; 83735; 83880; 84484; 85025; 87426; 93005; 94640; 94668; 94762; 97110; 97162; 97166; 97530; 97535; 99284; A4216; J1940

== ENCOUNTER 2022-06-21 16:00 | Inpatient (IN) | payer SELFPAY, OTHER ==
[2022-06-21 16:23] VITALS: BP 116/68; PULSE 92; RESP 16; TEMP 36.8; O2SAT 92; BMI 30.9
[2022-06-21 18:53] VITALS: PULSE 92
[2022-06-21] MEDS: APIXABAN 5 MG TABLET PO (18:53)
[2022-06-21] MEDS: Metoprolol Tartrate 100 MG Tablet PO (18:53)
--- NOTE | 2022-06-21 19:14 | HP.PCM_ITS ---
HPI - General General Date of Admission: 06/21/22 Date of Service: 06/21/22 Chief Complaint: Here for rehabilitation. HPI Narrative 06/17/2022 JOCELYNE VILLEDA, is a 82 Female who presents to [facility] Emergency Department with shortness of breath. Short of breath, pulsox 88%, oxygen placed. History of congestive heart failure, atrial fibrillation, increased swelling in legs, increased heart palpitations. Atrial fibrillation with rapid ventricular response treated with cardizem bolus, then cardizem drip. Albuterol given for wheezing with improved. Chest X-ray showed mild congestive heart failure. 06/17/2022 Admit to Hospital. Metoprolol PO, Metoprolol IV PRN atrial fibrillation with rapid ventricular response. Lasix 40mg IV twice daily for acute on chronic diastolic congestive heart failure. DUNIA wraps to bilateral lower extremity. 06/18/2022 Feels much better, shortness of breath improved. Heart rate controlled, on oral Metoprolol, Eliquis 5mg twice daily continued. Lasix 40mg IV twice daily, fluid restriction for congestive heart failure. 06/19/2022 Weak, tired, heart rate 130 to 140. Consult Cardiology for atrial fibrillation with rapid ventricular response. Replace potassium of 3.3. 06/20/2022 Feels better, heart rate improved, feels weak. Metoprolol 100mg bid, cardizem 60mg q6h, Eliquis 5mg twice daily for atrial fibrillation with rapid ventricular response. 06/21/5022 Admit to TCU with debility, here for rehabilitation, strengthening, prior to discharge home with family. [facility] Medical History (Updated 06/21/22 @ 19:[address] Gregory Perry MD) Anxiety Depression Dizziness Hypertension Severe uncontrolled hypertension Syncope and collapse Home Medications tramadol 50 mg tablet 50 mg PO Q6H PRN PRN Pain Score 4-10 7 days #28 tabs 06/06/22 [Rx Last Taken 06/17/22] acetaminophen 500 mg tablet 1,000 mg PO Q8 pain,fever 06/21/22 [History Last Taken Unknown] apixaban 5 mg tablet (Eliquis) 5 mg PO BID blood thinner 06/21/22 [History Last Taken Unknown] diltiazem HCl 240 mg capsule,extended release 24 hr (Cardizem CD) 240 mg PO DAILY heart 06/21/22 [History Last Taken Unknown] empagliflozin 10 mg tablet (Jardiance) 10 mg PO DAILY heart failure 06/21/22 [History Last Taken Unknown] furosemide 40 mg tablet 40 mg PO BID fluid pill 06/21/22 [History Last Taken Unknown] hydralazine 10 mg tablet 10 mg PO TID BP 06/21/22 [History Last Taken Unknown] losartan 100 mg tablet 100 mg PO DAILY BP 06/21/22 [History Last Taken Unknown] metoprolol tartrate 100 mg tablet 100 mg PO BID BP/pulse 06/21/22 [History Last Taken Unknown] mirtazapine 15 mg tablet 7.5 mg PO QHS depression 06/21/22 [History Last Taken Unknown] potassium chloride 20 mEq tablet,extended release(part/cryst) (Klor-Con M) 20 meq PO DAILY potassium 06/21/22 [History Last Taken Unknown] Allergy/AdvReac Type Severity Reaction Status Date / Time No Known Allergies Allergy Verified 06/17/22 17:48 Family History Mother Heart disease Surgical History History of hernia repair Social History (Updated 06/21/22 @ 19:[address] Gregory Perry MD) household members: family and children Smoking Status: Never smoker alcohol intake: never substance use type: does not use ROS Constitutional Constitutional: Denies chills, fever(s) or weight gain ENT HEENT: Denies headache(s), nasal congestion or nasal discharge Cardiovascular Cardiovascular: Denies chest pain or palpitations Respiratory/Chest Respiratory/Chest: Denies cough, excessive phlegm production or shortness of breath with exertion Gastrointestinal Gastrointestinal: Denies abdominal pain, nausea or vomiting Genitourinary Genitourinary: Denies dysuria Musculoskeletal Musculoskeletal: Denies joint pain or joint swelling Integumentary Integumentary: Denies rash or wounds Neurologic Neurologic: Denies focal weakness, numbness or tingling Psychiatric Psychiatric: Denies anxiety, auditory hallucinations, depression, homicidal ideation or suicidal ideation Vital Signs Vital Signs Vital Signs: 06/21/22 16:23 06/21/22 18:53 Temperature 98.2 F Temperature Source Oral Pulse Rate 92 92 Respiratory Rate 16 Blood Pressure 116/68 Blood Pressure Mean 84 Blood Pressure Source Monitor Blood Pressure Position Supine Blood Pressure Location Left Forearm Pulse Ox 92 Oxygen Delivery Method Room Air Weight Weight: 87.453 kg Body Mass Index (BMI) 30.9 Physical Exam Const alert General Appearance: cooperative HEENT normocephalic Eyes PERRL and EOMs intact bilaterally Neck supple, no JVD and no carotid bruits Resp normal respiratory effort, normal air movement and clear to auscultation bilaterally Cardio regular rate and regular rhythm GI normal to inspection, nondistended, normoactive bowel sounds, non-tender and non-distended Extremity normal capillary refill General Extremity: edema bilateral (1+ pitting.) lower extremity Skin no rashes or lesions noted General Skin Exam: no breakdown Psych affect normal Appearance: appropriate Assessment & Plan Assessment/Plan (1) Debility: (2) Hypoxia: (3) Atrial fibrillation with RVR: (4) Acute on chronic diastolic (congestive) heart failure: (5) DVT, bilateral lower limbs: PLAN: Plan 82 year old female with below past medical history hospitalized for acute hypoxia secondary to acute on chronic diastolic congestive heart failure, complicated by atrial fibrillation with rapid ventricular response, hypokalemia, admitted to TCU with debility, here for rehabilitation, strengthening, prior to discharge home with family. * Debility - PT/OT. * Pain - Tylenol 1000mg q8h, Tramadol 50mg q6h prn pain (4-10). * Bowel - senna/colace 1 tablet bid, Dulcolax 10mg pr x 1 prn, MOM 30ml po x 1 prn. * Adult immunization - Administer pneumonia vaccine, covid19 vaccine, flu vaccin e as appropriate. * DVT prophylaxis - on Eliquis 5mg bid. * Atrial fibrillation - Metoprolol 100mg bid, Diltiazem CD 240mg daily, Eliquis 5mg bid. * Bilateral lower extremity DVT - Eliquis 5mg bid. * Acute on chronic diastolic congestive heart failure - Metoprolol 100mg bid, Jardiance 10mg daily, Furosemide 40mg bidlx, start Entresto 24/26mg bid x 14 days, then 49/51mg bid x 14 days, then 97/103mg bid indefinitely, monitor blood pressure. * Appetite loss - Mirtazapine 7.5mg qhs, stable chronic manager terminal use, GDR not recommended. * Hypokalemia - KCL 20meq daily.
[2022-06-21 21:00] VITALS: PULSE 68; RESP 18; O2SAT 93
[2022-06-21] MEDS: Mirtazapine 15 MG Tablet 7.5 MG PO (21:06)
[2022-06-21] MEDS: Acetaminophen 500 MG Tablet 1000 MG PO (21:06)
[2022-06-21] MEDS: traMADol 50 MG Tablet PO (21:06)
[2022-06-22] MEDS: Acetaminophen 500 MG Tablet 1000 MG PO ×3 (05:09→20:27)
[2022-06-22] MEDS: dilTIAZem CD 240 MG Capsule PO (05:10)
[2022-06-22] MEDS: Furosemide 40 MG Tablet PO ×2 (05:10→14:54)
[2022-06-22] MEDS: APIXABAN 5 MG TABLET PO ×2 (05:10→17:29)
[2022-06-22] MEDS: Empagliflozin 10 MG Tablet PO (05:10)
[2022-06-22] MEDS: Senna/Docusate Sodium 1 Tablet PO (05:11)
[2022-06-22] MEDS: SACUBITRIL/VALSARTAN 24/26 MG TABLET 1 EACH PO ×2 (05:11→17:29)
[2022-06-22 05:12] VITALS: BP 132/61; PULSE 69
[2022-06-22] MEDS: Metoprolol Tartrate 100 MG Tablet PO ×2 (05:12→17:29)
[2022-06-22] MEDS: Menthol/Lanolin/Calamine/Znox 113 GM Tube 1 APPLIC TOPICAL ×2 (05:16→17:29)
[2022-06-22] MEDS: Nystatin Powder 15gm Bottle 1 APPLIC TOPICAL ×2 (05:16→17:30)
[2022-06-22 06:00] VITALS: BMI 30.4
[2022-06-22 06:31] LABS: Bedside Glucose 96 mg/dL (74-106)
[2022-06-22 07:25] LABS: Absolute Lymphocyte Count 1.51 X10^3/uL (0.83-4.51); Absolute Neutrophil Count 3.3 X10^3/uL (2.0-7.7); Basophil# 0.03 X10^3/uL; Basophil% 0.5 % (0-1); Eosinophil# 0.32 X10^3/uL; Eosinophils% 5.5 % (0-5); Hematocrit 36.9 % (37-47); Hemoglobin 11.9 g/dL (12.0-15.0); Lymphocyte # 1.51 X10^3/ul (0.83-4.51); Lymphocyte % 25.9 % (19-41); Mean Corp Hgb Conc 32.2 g/dL (32-36); Mean Corpuscular Hgb 27.5 pg (27.0-32.0); Mean Corpuscular Volume 85.2 fL (81-99); Mean Platelet Vol. 10.2 fl (6.2-12.0); Monocyte# 0.69 X10^3/uL; Monocyte% 11.9 % (0-10); NRBC Flagged by Analyzer 0 % (0-5); Neutrophil # 3.25 X10^3/uL (2.7-7.7); Neutrophil % 55.9 % (47-70); Platelet Count 242 K/mm3 (150-450); RBC Distribution Width CV 13.7 % (11.6-14.6); RBC Distribution Width SD 42.8 fl (35.1-43.9); Red Blood Count 4.33 M/mm3 (4.2-5.4); White Blood Count 5.8 K/mm3 (4.4-11.0)
[2022-06-22 07:53] LABS: Anion Gap 3 (5-15); BUN 33 mg/dL (7-18); BUN/Creat Ratio 41.5 RATIO (10-20); Calcium,Total 9.1 mg/dL (8.5-10.1); Chloride 101 mmol/L (98-107); EST Glomerular Filtration Rate 74 mL/min (>60); Est Glom Filt Rate - Afr Amer 89 mL/min (>60); Estimated Creatinine Clearance 52.51 ml/min; Glucose 106 mg/dL (74-106); Potassium 3.1 mmol/L (3.5-5.1); Sodium Level 137 mmol/L (136-145)
[2022-06-22] MEDS: Potassium Chloride Oral Tablet 20 MEQ 40 MEQ PO (09:18)
[2022-06-22 14:00] VITALS: BP 140/59; PULSE 50; RESP 16; TEMP 36.4; O2SAT 96
[2022-06-22 17:29] VITALS: PULSE 70
[2022-06-22] MEDS: Potassium Chloride Oral Tablet 20 MEQ PO (17:29)
[2022-06-22] MEDS: Mirtazapine 15 MG Tablet 7.5 MG PO (20:28)
[2022-06-23] MEDS: SACUBITRIL/VALSARTAN 24/26 MG TABLET 1 EACH PO ×2 (04:51→18:00)
[2022-06-23] MEDS: dilTIAZem CD 240 MG Capsule PO (04:52)
[2022-06-23] MEDS: Furosemide 40 MG Tablet PO ×2 (04:52→14:04)
[2022-06-23] MEDS: Acetaminophen 500 MG Tablet 1000 MG PO ×3 (04:52→21:10)
[2022-06-23 04:53] VITALS: BP 132/67; PULSE 68
[2022-06-23] MEDS: APIXABAN 5 MG TABLET PO ×2 (04:53→17:59)
[2022-06-23] MEDS: Metoprolol Tartrate 100 MG Tablet PO ×2 (04:53→18:00)
[2022-06-23] MEDS: Empagliflozin 10 MG Tablet PO (04:53)
[2022-06-23] MEDS: Nystatin Powder 15gm Bottle 1 APPLIC TOPICAL ×2 (04:54→18:01)
[2022-06-23] MEDS: Menthol/Lanolin/Calamine/Znox 113 GM Tube 1 APPLIC TOPICAL ×2 (04:54→18:01)
[2022-06-23 06:00] VITALS: BMI 30.4
[2022-06-23 06:21] LABS: Bedside Glucose 101 mg/dL (74-106)
[2022-06-23 06:30] LABS: Anion Gap 2 (5-15); BUN 26 mg/dL (7-18); BUN/Creat Ratio 35.3 RATIO (10-20); Calcium,Total 8.8 mg/dL (8.5-10.1); Chloride 105 mmol/L (98-107); Creatinine, Serum 0.74 mg/dL (0.55-1.02); EST Glomerular Filtration Rate 81 mL/min (>60); Est Glom Filt Rate - Afr Amer 98 mL/min (>60); Glucose 111 mg/dL (74-106); Potassium 3.7 mmol/L (3.5-5.1); Sodium Level 138 mmol/L (136-145)
[2022-06-23] MEDS: Potassium Chloride Oral Tablet 20 MEQ PO ×2 (08:44→17:59)
[2022-06-23 10:00] VITALS: PULSE 61; RESP 16; O2SAT 92
[2022-06-23 14:00] VITALS: BP 114/51; PULSE 51; RESP 16; TEMP 36.5; O2SAT 97
[2022-06-23 18:00] VITALS: PULSE 68
[2022-06-23] MEDS: traMADol 50 MG Tablet PO (21:09)
[2022-06-23] MEDS: Mirtazapine 15 MG Tablet 7.5 MG PO (21:09)
[2022-06-24] MEDS: Nystatin Powder 15gm Bottle 1 APPLIC TOPICAL ×2 (05:34→17:43)
[2022-06-24] MEDS: Empagliflozin 10 MG Tablet PO (05:35)
[2022-06-24] MEDS: SACUBITRIL/VALSARTAN 24/26 MG TABLET 1 EACH PO ×2 (05:35→17:45)
[2022-06-24] MEDS: APIXABAN 5 MG TABLET PO ×2 (05:35→17:44)
[2022-06-24] MEDS: Furosemide 40 MG Tablet PO ×2 (05:35→14:10)
[2022-06-24] MEDS: dilTIAZem CD 240 MG Capsule PO (05:35)
[2022-06-24 05:36] VITALS: BP 141/60; PULSE 65
[2022-06-24] MEDS: Metoprolol Tartrate 100 MG Tablet PO ×2 (05:36→17:47)
[2022-06-24] MEDS: Senna/Docusate Sodium 1 Tablet PO (05:36)
[2022-06-24] MEDS: Menthol/Lanolin/Calamine/Znox 113 GM Tube 1 APPLIC TOPICAL ×2 (05:37→17:43)
[2022-06-24] MEDS: Acetaminophen 500 MG Tablet 1000 MG PO ×3 (05:37→20:23)
[2022-06-24 05:46] VITALS: BMI 30.4
[2022-06-24 06:41] LABS: Bedside Glucose 102 mg/dL (74-106)
[2022-06-24] MEDS: Potassium Chloride Oral Tablet 20 MEQ PO ×2 (08:38→17:44)
[2022-06-24 09:06] VITALS: PULSE 60; RESP 18; O2SAT 97
--- NOTE | 2022-06-24 09:23 | NURSING ---
Energy Director Note; Activity Asset: Jer Willams is independent in her choice of daily activities. She enjoys word puzzles, reading her bible and spending time w/her family. Family is very involved and will be her daily w/her.
--- NOTE | 2022-06-24 11:01 | NURSING ---
Offered Covid booster, education about vaccine provided. Patient declines at this time.
--- NOTE | 2022-06-24 11:53 | PCM.PN.DRR ---
TCU RX Drug Regimen Review Subjective: TCU Admission. 82 YOF presented to the ER with shortness of breath. Hospitalized for acute hypoxia secondary to acute on chronic diastolic congestive heart failure, complicated by atrial fibrillation with rapid ventricular response, hypokalemia. Admitted to TCU with debility for strengthening and rehabilitation. Objective: Allergies No Known Allergies Allergy (Verified 06/17/22 17:48) Current Medications Generic Name Dose Route Start Last Admin Trade Name Freq PRN Reason Stop Dose Admin Acetaminophen 1,000 mg 06/21/22 22:00 06/24/22 05:37 Acetaminophen 500 Mg Tablet PO 1,000 mg Q8 ADAM Administration Apixaban 5 mg 06/21/22 18:00 06/24/22 05:35 Apixaban 5 Mg Tablet PO 5 mg BID ADAM Administration Bisacodyl 10 mg 06/21/22 19:32 Bisacodyl 10 Mg Suppository RC X1 PRN Constipation Calamine/Phenol 1 applic 06/22/22 06:00 06/24/22 05:37 Menthol/Lanolin/Calamine/Znox 113 Gm Tube TOPICAL 1 applic BID ADAM Administration Protocol Diltiazem HCl 240 mg 06/22/22 06:00 06/24/22 05:35 Diltiazem Cd 240 Mg Capsule PO 240 mg DAILY ADAM Administration Empagliflozin 10 mg 06/22/22 06:00 06/24/22 05:35 Empagliflozin 10 Mg Tablet PO 10 mg DAILY ADAM Administration Furosemide 40 mg 06/22/22 06:00 06/24/22 05:35 Furosemide 40 Mg Tablet PO 40 mg BIDLX ADAM Administration Magnesium Hydroxide 30 ml 06/21/22 19:32 Magnesium Hydroxide 30 Ml Udc PO X1 PRN Constipation Metoprolol Tartrate 100 mg 06/21/22 18:00 06/24/22 05:36 Metoprolol Tartrate 100 Mg Tablet PO 100 mg BID ADAM Administration Mirtazapine 7.5 mg 06/21/22 22:00 06/23/22 21:09 Mirtazapine 15 Mg Tablet PO 7.5 mg QHS ADAM Administration Nystatin 1 applic 06/22/22 06:00 06/24/22 05:34 Nystatin Powder 15gm Bottle TOPICAL 1 applic BID ADAM Administration Protocol Potassium Chloride 20 meq 06/22/22 17:00 06/24/22 08:38 Potassium Chloride Oral Tablet 20 Meq PO 20 meq BIDCM ADAM Administration Sacubitril/Valsartan 1 each 06/22/22 06:00 06/24/22 05:35 Sacubitril/Valsartan 24/26 Mg Tablet PO 07/05/22 18:01 1 each BID ADAM Administration Sacubitril/Valsartan 1 each 07/06/22 06:00 Sacubitril/Valsartan 49-51 Mg Tablet PO 07/19/22 18:01 BID ADAM Sacubitril/Valsartan 1 each 07/20/22 06:00 Sacubitril/Valsartan 97-103 Mg Tablet PO BID ADAM Senna/Docusate Sodium 1 tablet 06/22/22 06:00 06/24/22 05:36 Senna/Docusate Sodium 1 Tablet PO 1 tablet BID ADAM Administration Tramadol HCl 50 mg 06/21/22 16:41 06/23/22 21:09 Tramadol 50 Mg Tablet PO 50 mg Q6H PRN PRN Administration Pain Score 4-10 Tuberculin PPD 0.1 ml 06/29/22 10:00 Tuberculin,Purif.Prot.Deriv. 50 Tu/Ml Vial ID 06/29/22 10:01 X1 ONE Problem List (Last Reviewed 06/21/22 @ 19:[address] Gregory Perry MD) Acute on chronic diastolic (congestive) heart failure (Chronic) Atrial fibrillation with RVR (Acute) Hypoxia (Acute) DVT, bilateral lower limbs (Acute) Debility (Acute) Vital Signs Temp Pulse Resp BP Pulse Ox O2 Del Method 97.7 F L 60 18 141/60 H 97 Room Air 06/23/22 14:00 06/24/22 09:06 06/24/22 09:06 06/24/22 05:36 06/24/22 09:06 06/24/22 09:06 Oxygen Delivery Method Room Air Weight: 85.814 kg Body Mass Index (BMI) 30.4 Sodium 138 mmol/L (136-145) 06/23/22 05:43 Potassium 3.7 mmol/L (3.5-5.1) 06/23/22 05:43 Chloride 105 mmol/L (98-107) 06/23/22 05:43 Carbon Dioxide 31.0 mmol/L (21.0-32.0) 06/23/22 05:43 Anion Gap 2 (5-15) L 06/23/22 05:43 BUN 26 mg/dL (7-18) H 06/23/22 05:43 Creatinine 0.74 mg/dL (0.55-1.02) 06/23/22 05:43 Est GFR (MDRD) Af Amer 98 mL/min (>60) 06/23/22 05:43 Est GFR (MDRD) Non-Af 81 mL/min (>60) 06/23/22 05:43 BUN/Creatinine Ratio 35.3 RATIO (10-20) H 06/23/22 05:43 Glucose 111 mg/dL (74-106) H 06/23/22 05:43 Assessment/Plan: 1. Pain: acetaminophen 1000mg PO Q8 and tramadol 50mg PO Q6H PRN pain 4-10. Resident has had 2 doses of tramadol for pain of 4 in the foot/knee. Please continue to monitor for increased pain, PRN usage, constipation and renal function. 2. Bowel: senna/docusate 1T PO BID, bisacodyl 10mg RC x1 PRN constipation and MOM 30mL PO x1 PRN constipation. Resident has not used any PRN doses. Last documented bowel movement was 06/20. Please continue to monitor for constipation and PRN usage. 3. Atrial fibrillation/CHF/bilateral lower extremity DVT/DVT prophylaxis: apixaban 5mg PO BID, metoprolol tartrate 100mg PO BID, diltiazem CD 240mg PO daily, empagliflozin 10mg PO daily, furosemide 40mg PO BIDLX and Entresto 24/26mg PO BID thru 07/05/22 then 49/51mg PO BID 07/06-07/19 then 97/103mg PO BID starting 07/20. Please continue to monitor hemoglobin (last 11.9g/dL), S/S of bleeding/VTE, HR (last 60), BP (last 141/60), S/S of UTI, renal function, potassium (last 3.7mmol/L). 4. Hypokalemia: potassium chloride 20mEq PO BIDCM. Please continue to monitor potassium. Assessment/Plan for indications treated with psychotropic medications: 1. Appetite loss: mirtazapine 7.5mg PO QHS. Please see physician note regarding GDR. Please continue to monitor for improved appetite and sodium (last 138mmol/L, BEERs medication). Medical chart and medication regimen reviewed. The following medication irregularities or issues were identified: None Date of Note:: 06/24/22
[2022-06-24 14:00] VITALS: BP 120/41; PULSE 56; RESP 18; TEMP 37.2; O2SAT 96
[2022-06-24 17:47] VITALS: BP 120/41; PULSE 56
[2022-06-24] MEDS: Mirtazapine 15 MG Tablet 7.5 MG PO (20:23)
[2022-06-25 04:57] VITALS: BMI 30.4
[2022-06-25 05:13] VITALS: BP 151/74; PULSE 65
[2022-06-25] MEDS: Furosemide 40 MG Tablet PO ×2 (05:13→14:15)
[2022-06-25] MEDS: Empagliflozin 10 MG Tablet PO (05:13)
[2022-06-25] MEDS: Senna/Docusate Sodium 1 Tablet PO ×2 (05:13→17:37)
[2022-06-25] MEDS: APIXABAN 5 MG TABLET PO ×2 (05:13→17:35)
[2022-06-25] MEDS: Metoprolol Tartrate 100 MG Tablet PO ×2 (05:13→17:36)
[2022-06-25] MEDS: dilTIAZem CD 240 MG Capsule PO (05:13)
[2022-06-25] MEDS: Acetaminophen 500 MG Tablet 1000 MG PO ×3 (05:13→21:32)
[2022-06-25] MEDS: SACUBITRIL/VALSARTAN 24/26 MG TABLET 1 EACH PO ×2 (05:13→17:36)
[2022-06-25] MEDS: Menthol/Lanolin/Calamine/Znox 113 GM Tube 1 APPLIC TOPICAL ×2 (05:14→17:37)
[2022-06-25] MEDS: Nystatin Powder 15gm Bottle 1 APPLIC TOPICAL ×2 (05:14→18:06)
[2022-06-25 06:00] VITALS: BMI 30.4
[2022-06-25 06:51] LABS: Bedside Glucose 105 mg/dL (74-106)
[2022-06-25] MEDS: Potassium Chloride Oral Tablet 20 MEQ PO ×2 (07:36→17:35)
--- NOTE | 2022-06-25 08:52 | CASEMGMT ---
Social Work SW met with patient and dtr, Rosalind Paz, in room. Pt known to this worker from previous. No changes to PLOF, assessment, code status (DNR-CCA, no intubation) or MOLST form. Pt remains under [facility]. Pt's goal is to return home with dtr. SW to continue to follow for DC planning. Karly Guerrier, LONE LEAD LINEMAN THEATER MANAGER
[2022-06-25 09:30] VITALS: BMI 30.1
[2022-06-25 13:56] VITALS: BP 127/53; PULSE 55; RESP 18; TEMP 36.4; O2SAT 95
[2022-06-25 17:36] VITALS: BP 127/53; PULSE 55
[2022-06-25 20:39] VITALS: BP 132/56; PULSE 62; RESP 16; TEMP 36.4; O2SAT 94
[2022-06-25 20:40] VITALS: PULSE 62; RESP 16; O2SAT 94
[2022-06-25] MEDS: Mirtazapine 15 MG Tablet 7.5 MG PO (21:31)
[2022-06-26 05:39] VITALS: BMI 29.8
[2022-06-26] MEDS: APIXABAN 5 MG TABLET PO ×2 (05:42→17:06)
[2022-06-26] MEDS: Acetaminophen 500 MG Tablet 1000 MG PO ×3 (05:43→20:27)
[2022-06-26] MEDS: Menthol/Lanolin/Calamine/Znox 113 GM Tube 1 APPLIC TOPICAL ×2 (05:44→17:10)
[2022-06-26] MEDS: Nystatin Powder 15gm Bottle 1 APPLIC TOPICAL ×2 (05:44→17:10)
[2022-06-26] MEDS: Furosemide 40 MG Tablet PO ×2 (05:45→13:52)
[2022-06-26] MEDS: dilTIAZem CD 240 MG Capsule PO (05:45)
[2022-06-26] MEDS: SACUBITRIL/VALSARTAN 24/26 MG TABLET 1 EACH PO (05:45)
[2022-06-26 05:46] VITALS: BP 143/42; PULSE 63
[2022-06-26] MEDS: Empagliflozin 10 MG Tablet PO (05:46)
[2022-06-26] MEDS: Metoprolol Tartrate 100 MG Tablet PO (05:46)
[2022-06-26 06:50] LABS: Bedside Glucose 103 mg/dL (74-106)
[2022-06-26] MEDS: Potassium Chloride Oral Tablet 20 MEQ PO ×2 (08:01→17:03)
[2022-06-26 13:43] VITALS: BP 96/44; PULSE 40; RESP 13; TEMP 36.4; O2SAT 95
[2022-06-26 17:08] VITALS: BP 102/48; PULSE 40
[2022-06-26] MEDS: Mirtazapine 15 MG Tablet 7.5 MG PO (20:28)
[2022-06-26 20:30] VITALS: O2SAT 96
[2022-06-27 04:46] VITALS: BP 149/60; PULSE 66
[2022-06-27] MEDS: Metoprolol Tartrate 100 MG Tablet PO ×2 (04:46→17:45)
[2022-06-27] MEDS: SACUBITRIL/VALSARTAN 24/26 MG TABLET 1 EACH PO ×2 (04:46→17:43)
[2022-06-27] MEDS: Furosemide 40 MG Tablet PO ×2 (04:46→14:05)
[2022-06-27] MEDS: Empagliflozin 10 MG Tablet PO (04:47)
[2022-06-27] MEDS: dilTIAZem CD 240 MG Capsule PO (04:47)
[2022-06-27] MEDS: Acetaminophen 500 MG Tablet 1000 MG PO ×3 (04:48→21:08)
[2022-06-27] MEDS: APIXABAN 5 MG TABLET PO ×2 (04:48→17:43)
[2022-06-27] MEDS: Nystatin Powder 15gm Bottle 1 APPLIC TOPICAL ×2 (04:49→17:45)
[2022-06-27] MEDS: Menthol/Lanolin/Calamine/Znox 113 GM Tube 1 APPLIC TOPICAL ×2 (04:50→17:47)
[2022-06-27 05:13] VITALS: BMI 29.9
[2022-06-27 06:55] LABS: Bedside Glucose 119 mg/dL (74-106)
[2022-06-27] MEDS: Potassium Chloride Oral Tablet 20 MEQ PO ×2 (08:08→17:45)
[2022-06-27 09:41] VITALS: PULSE 77; RESP 16; O2SAT 96
[2022-06-27 14:00] VITALS: BP 113/52; PULSE 63; RESP 16; TEMP 36.3; O2SAT 98
--- NOTE | 2022-06-27 15:46 | CHAPLAIN ---
Type of Pastoral Visit _x__ Initial Visit ___ Follow-up Visit ___ On-call Visit ___ General Patient Visit ___ Spiritual Assessment ___ Family Conference ___ Bereavement ___ Rapid Response ___ Code Blue ___ Other (describe below) Pastoral Care Referral From _x__ Patient ___ Family ___ Nurse ___ Physician ___ Oil [employer] Field Technician ___ Packager Hand ___ Other (describe below) Sacrament/Intervention _x__ Active listening ___ Anointing ___ Roman Catholic ___ Bereavement ___ Communion ___ Madalyn exploration ___ ___ Life review ___ Prayer ___ Reconciliation ___ Sacrament of Sick _x__ Supportive presence ___ Wedding ___ Other (describe below) Pastoral Comments patient explains her health situation and reason for return; pt has family members in the room; pt is pleasant and has no additional concerns at this time other than improved health;
[2022-06-27 16:00] VITALS: BMI 30.1
[2022-06-27 17:45] VITALS: PULSE 63
[2022-06-27] MEDS: Mirtazapine 15 MG Tablet 7.5 MG PO (21:09)
[2022-06-28] MEDS: Acetaminophen 500 MG Tablet 1000 MG PO ×3 (05:52→20:15)
[2022-06-28] MEDS: SACUBITRIL/VALSARTAN 24/26 MG TABLET 1 EACH PO ×2 (05:52→17:49)
[2022-06-28] MEDS: APIXABAN 5 MG TABLET PO ×2 (05:52→17:48)
[2022-06-28 05:53] VITALS: BP 146/87; PULSE 88
[2022-06-28] MEDS: Empagliflozin 10 MG Tablet PO (05:53)
[2022-06-28] MEDS: Furosemide 40 MG Tablet PO ×2 (05:53→13:30)
[2022-06-28] MEDS: dilTIAZem CD 240 MG Capsule PO (05:53)
[2022-06-28] MEDS: Senna/Docusate Sodium 1 Tablet PO ×2 (05:53→17:49)
[2022-06-28] MEDS: Metoprolol Tartrate 100 MG Tablet PO (05:53)
[2022-06-28] MEDS: Nystatin Powder 15gm Bottle 1 APPLIC TOPICAL ×2 (05:54→20:14)
[2022-06-28] MEDS: Menthol/Lanolin/Calamine/Znox 113 GM Tube 1 APPLIC TOPICAL ×2 (05:55→17:48)
[2022-06-28 06:00] VITALS: BMI 30.2
[2022-06-28] MEDS: Potassium Chloride Oral Tablet 20 MEQ PO ×2 (08:36→17:48)
[2022-06-28] MEDS: Calcium Carbonate 500 MG Tablet 1000 MG PO (08:42)
--- NOTE | 2022-06-28 10:09 | CASEMGMT ---
Social Work BIMS () and PHQ-9 (08/10) completed for MDS assessment. Karly Guerrier MSW HAIR OR BEAUTY SALON MANAGER
--- NOTE | 2022-06-28 13:32 | NURSING ---
PT STATED TO THIS NURSE WITH SON IN ROOM THAT HER SONS HAS THE STOMACH FLU. WILL CONTINUE TO MONITOR. RN AWARE
--- NOTE | 2022-06-28 13:40 | EKG12_ITS ---
Test Reason : ABN LABS Blood Pressure : / mmHG Vent. Rate : 038 BPM Atrial Rate : 053 BPM P-R Int : 000 ms QRS Dur : 072 ms QT Int : 456 ms P-R-T Axes : 000 063 065 degrees QTc Int : 362 ms Junctional bradycardia Abnormal ECG When compared with ECG of 28-JUN-2022 13:52, MANUAL COMPARISON REQUIRED, DATA IS UNCONFIRMED Confirmed by EVIE BUENO ([id number]), food editor MICHAEL CARRASCO ([id number]) on 07/03/2022 1:39:06 PM Referred By: VIKASH Confirmed By:EVIE BUENO
--- NOTE | 2022-06-28 13:40 | NURSING ---
Addendum entered by Rosalind Caldwell 06/28/22 14:30: appt made with [facility] to follow up, date & time of appt given to family and pt Original Note: AID NOTIFIED THIS NURSE THAT PT HR WAS LOW. THIS NURSE CHECKED APICAL AND WAS 36. NOTIFIED RN AND . NEW ORDERS BEING GIVEN.
--- NOTE | 2022-06-28 13:57 | NURSING ---
THIS NURSE STATED TO PT SON THAT IF HE AND ANY FAMILY MEMBER HAS BEEN AROUND HIS TO PLEASE NOT COME IN FOR A WHILE DUE TO HIS HAVING THE FLU AND DONT WANT ANY PTS OR STAFF TO GET SICK. PT SON STATED HE UNDER STOOD.
[2022-06-28 13:59] LABS: Absolute Lymphocyte Count 2.49 X10^3/uL (0.83-4.51); Absolute Neutrophil Count 5.4 X10^3/uL (2.0-7.7); Basophil# 0.04 X10^3/uL; Basophil% 0.5 % (0-1); Eosinophil# 0.04 X10^3/uL; Eosinophils% 0.5 % (0-5); Hematocrit 40.8 % (37-47); Hemoglobin 12.8 g/dL (12.0-15.0); Lymphocyte # 2.49 X10^3/ul (0.83-4.51); Lymphocyte % 28.7 % (19-41); Mean Corp Hgb Conc 31.4 g/dL (32-36); Mean Corpuscular Hgb 26.9 pg (27.0-32.0); Mean Corpuscular Volume 85.9 fL (81-99); Mean Platelet Vol. 10.2 fl (6.2-12.0); Monocyte# 0.71 X10^3/uL; Monocyte% 8.2 % (0-10); NRBC Flagged by Analyzer 0 % (0-5); Neutrophil # 5.36 X10^3/uL (2.7-7.7); Neutrophil % 61.8 % (47-70); Platelet Count 271 K/mm3 (150-450); RBC Distribution Width SD 44.4 fl (35.1-43.9); Red Blood Count 4.75 M/mm3 (4.2-5.4); White Blood Count 8.7 K/mm3 (4.4-11.0)
[2022-06-28 14:00] VITALS: BP 125/51; PULSE 36; RESP 16; TEMP 36.3; O2SAT 96
[2022-06-28 14:15] LABS: Iron 87 ug/dL (50-170)
[2022-06-28 17:51] VITALS: BP 125/51; PULSE 37
[2022-06-28 17:53] VITALS: PULSE 37
[2022-06-28] MEDS: Ondansetron ODT 4 MG Tablet 8 MG PO (17:56)
[2022-06-28] MEDS: traMADol 50 MG Tablet PO (20:17)
[2022-06-28] MEDS: Mirtazapine 15 MG Tablet 7.5 MG PO (20:17)
[2022-06-28 22:08] VITALS: PULSE 36; O2SAT 95
[2022-06-29] VITALS (10 sets, daily range): BP systolic 106–150; BP diastolic 37–67; PULSE 29–66; RESP 16–18; TEMP 36.3; O2SAT 93–95; BMI 29.6
[2022-06-29] MEDS: APIXABAN 5 MG TABLET PO ×2 (05:04→18:20)
[2022-06-29] MEDS: Acetaminophen 500 MG Tablet 1000 MG PO ×3 (05:04→21:28)
[2022-06-29] MEDS: dilTIAZem CD 240 MG Capsule PO (05:04)
[2022-06-29] MEDS: SACUBITRIL/VALSARTAN 24/26 MG TABLET 1 EACH PO ×2 (05:04→18:20)
[2022-06-29] MEDS: Senna/Docusate Sodium 1 Tablet PO ×2 (05:04→18:20)
[2022-06-29] MEDS: Metoprolol Tartrate 100 MG Tablet PO (05:04)
[2022-06-29] MEDS: Furosemide 40 MG Tablet PO (05:04)
[2022-06-29] MEDS: Empagliflozin 10 MG Tablet PO (05:04)
[2022-06-29] MEDS: Nystatin Powder 15gm Bottle 1 APPLIC TOPICAL ×2 (05:05→18:21)
[2022-06-29] MEDS: Menthol/Lanolin/Calamine/Znox 113 GM Tube 1 APPLIC TOPICAL (05:05)
[2022-06-29] MEDS: Calcium Carbonate 500 MG Tablet 1000 MG PO (07:01)
[2022-06-29 07:45] LABS: Absolute Lymphocyte Count 1.97 X10^3/uL (0.83-4.51); Absolute Neutrophil Count 6.5 X10^3/uL (2.0-7.7); Basophil# 0.06 X10^3/uL; Basophil% 0.6 % (0-1); Eosinophil# 0.13 X10^3/uL; Eosinophils% 1.3 % (0-5); Hematocrit 38.5 % (37-47); Lymphocyte # 1.97 X10^3/ul (0.83-4.51); Lymphocyte % 20.4 % (19-41); Mean Corp Hgb Conc 31.2 g/dL (32-36); Mean Corpuscular Hgb 27.3 pg (27.0-32.0); Mean Corpuscular Volume 87.7 fL (81-99); Mean Platelet Vol. 10.4 fl (6.2-12.0); Monocyte# 0.94 X10^3/uL; Monocyte% 9.7 % (0-10); NRBC Flagged by Analyzer 0 % (0-5); Neutrophil # 6.51 X10^3/uL (2.7-7.7); Neutrophil % 67.4 % (47-70); Platelet Count 247 K/mm3 (150-450); RBC Distribution Width CV 14.1 % (11.6-14.6); RBC Distribution Width SD 45.5 fl (35.1-43.9); Red Blood Count 4.39 M/mm3 (4.2-5.4); White Blood Count 9.7 K/mm3 (4.4-11.0)
[2022-06-29] MEDS: Ondansetron ODT 4 MG Tablet 8 MG PO (08:18)
[2022-06-29] MEDS: Potassium Chloride Oral Tablet 20 MEQ PO ×2 (08:18→18:20)
[2022-06-29 08:34] LABS: Anion Gap 6 (5-15); BUN 53 mg/dL (7-18); BUN/Creat Ratio 31.2 RATIO (10-20); Calcium,Total 9.2 mg/dL (8.5-10.1); Chloride 103 mmol/L (98-107); EST Glomerular Filtration Rate 31 mL/min (>60); Est Glom Filt Rate - Afr Amer 37 mL/min (>60); Estimated Creatinine Clearance 24.71 ml/min; Glucose 114 mg/dL (74-106); Potassium 4.7 mmol/L (3.5-5.1); Sodium Level 134 mmol/L (136-145)
[2022-06-29] MEDS: Tuberculin,Purif.prot.deriv. 50 TU/ML Vial 0.1 ML ID (11:19)
[2022-06-29] MEDS: Mirtazapine 15 MG Tablet 7.5 MG PO (21:27)
[2022-06-30 05:39] VITALS: BMI 29.7
[2022-06-30 05:43] VITALS: BP 125/40; PULSE 45
[2022-06-30] MEDS: Nystatin Powder 15gm Bottle 1 APPLIC TOPICAL ×2 (05:43→17:40)
[2022-06-30] MEDS: Menthol/Lanolin/Calamine/Znox 113 GM Tube 1 APPLIC TOPICAL ×2 (05:44→17:40)
[2022-06-30] MEDS: Senna/Docusate Sodium 1 Tablet PO (05:45)
[2022-06-30] MEDS: APIXABAN 5 MG TABLET PO ×2 (05:45→17:39)
[2022-06-30] MEDS: Empagliflozin 10 MG Tablet PO (05:45)
[2022-06-30] MEDS: SACUBITRIL/VALSARTAN 24/26 MG TABLET 1 EACH PO (05:45)
[2022-06-30] MEDS: Acetaminophen 500 MG Tablet 1000 MG PO ×3 (05:46→21:05)
[2022-06-30 06:20] LABS: Anion Gap 5 (5-15); BUN 65 mg/dL (7-18); Calcium,Total 9.2 mg/dL (8.5-10.1); Chloride 101 mmol/L (98-107); EST Glomerular Filtration Rate 19 mL/min (>60); Est Glom Filt Rate - Afr Amer 23 mL/min (>60); Estimated Creatinine Clearance 16.16 ml/min; Glucose 119 mg/dL (74-106); Potassium 5.7 mmol/L (3.5-5.1); Sodium Level 131 mmol/L (136-145)
[2022-06-30 06:32] VITALS: BP 125/48; PULSE 48
[2022-06-30] MEDS: Ondansetron ODT 4 MG Tablet 8 MG PO (08:02)
--- NOTE | 2022-06-30 09:13 | EKG12_ITS ---
Test Reason : ELLIOT Blood Pressure : / mmHG Vent. Rate : 036 BPM Atrial Rate : 250 BPM P-R Int : 000 ms QRS Dur : 106 ms QT Int : 482 ms P-R-T Axes : 000 059 061 degrees QTc Int : 372 ms Junctional bradycardia Abnormal ECG When compared with ECG of 17-JUN-2022 18:00, Junctional rhythm has replaced Atrial fibrillation Vent. rate has decreased BY 89 BPM QRS duration has increased Confirmed by EVIE BUENO ([id number]), index editor MICHAEL CARRASCO ([id number]) on 07/03/2022 1:41:33 PM Referred By: VIKASH Confirmed By:EVIE BUENO
[2022-06-30] MEDS: 0.9% Normal Saline 1,000 ML 60 ML IV (09:34)
[2022-06-30] MEDS: Sodium Polystyrene Sulfonate 15 GM/60 ML UDC 30 GM PO (09:36)
[2022-06-30] MEDS: 0.9% Saline Lock 10 ML Syringe IV (09:47)
--- NOTE | 2022-06-30 12:56 | NURSING ---
Addendum entered by Cherelle Lopez 06/30/22 13:04: Positive results from [facility] Original Note: Pt presenting with low HR at approx 0800 at 37, labs showed high potassium, high BUN, and low sodium levels. Pt stated she didn't feel good, felt nauseous and weak. Dr. Perry paged and received new orders this AM
[2022-06-30 14:00] VITALS: BP 142/62; PULSE 80; RESP 14; TEMP 36.1; O2SAT 95
[2022-06-30 15:50] LABS: Anion Gap 4 (5-15); BUN 60 mg/dL (7-18); BUN/Creat Ratio 30.6 RATIO (10-20); Chloride 106 mmol/L (98-107); Creatinine, Serum 1.96 mg/dL (0.55-1.02); EST Glomerular Filtration Rate 26 mL/min (>60); Est Glom Filt Rate - Afr Amer 32 mL/min (>60); Estimated Creatinine Clearance 21.43 ml/min; Glucose 111 mg/dL (74-106); Potassium 4.4 mmol/L (3.5-5.1); Sodium Level 136 mmol/L (136-145)
[2022-06-30 16:00] VITALS: BMI 29.7
[2022-06-30 20:15] VITALS: PULSE 106; RESP 14; O2SAT 92
[2022-06-30] MEDS: Mirtazapine 15 MG Tablet 7.5 MG PO (21:06)
[2022-07-01] MEDS: traMADol 50 MG Tablet PO ×3 (01:14→21:21)
[2022-07-01] MEDS: 0.9% Normal Saline 1,000 ML 60 ML IV (02:32)
[2022-07-01] MEDS: APIXABAN 5 MG TABLET PO ×2 (05:32→17:15)
[2022-07-01] MEDS: Acetaminophen 500 MG Tablet 1000 MG PO ×3 (05:32→20:42)
[2022-07-01 05:33] VITALS: BMI 30.1
[2022-07-01] MEDS: Menthol/Lanolin/Calamine/Znox 113 GM Tube 1 APPLIC TOPICAL ×2 (05:33→17:16)
[2022-07-01] MEDS: Nystatin Powder 15gm Bottle 1 APPLIC TOPICAL ×2 (05:33→17:16)
[2022-07-01] MEDS: Senna/Docusate Sodium 1 Tablet PO ×2 (05:33→17:15)
[2022-07-01 05:39] LABS: Absolute Lymphocyte Count 1.88 X10^3/uL (0.83-4.51); Absolute Neutrophil Count 5.7 X10^3/uL (2.0-7.7); Basophil# 0.04 X10^3/uL; Basophil% 0.5 % (0-1); Eosinophil# 0.12 X10^3/uL; Eosinophils% 1.4 % (0-5); Hematocrit 36.5 % (37-47); Hemoglobin 11.8 g/dL (12.0-15.0); Lymphocyte # 1.88 X10^3/ul (0.83-4.51); Lymphocyte % 22.1 % (19-41); Mean Corp Hgb Conc 32.3 g/dL (32-36); Mean Corpuscular Hgb 27.7 pg (27.0-32.0); Mean Corpuscular Volume 85.7 fL (81-99); Mean Platelet Vol. 10.5 fl (6.2-12.0); Monocyte# 0.77 X10^3/uL; NRBC Flagged by Analyzer 0 % (0-5); Neutrophil # 5.68 X10^3/uL (2.7-7.7); Neutrophil % 66.6 % (47-70); Platelet Count 233 K/mm3 (150-450); RBC Distribution Width CV 14.4 % (11.6-14.6); RBC Distribution Width SD 44.9 fl (35.1-43.9); Red Blood Count 4.26 M/mm3 (4.2-5.4); White Blood Count 8.5 K/mm3 (4.4-11.0)
[2022-07-01 06:14] VITALS: BP 132/62; PULSE 100; O2SAT 95
[2022-07-01 06:58] LABS: Anion Gap 5 (5-15); BUN 43 mg/dL (7-18); BUN/Creat Ratio 32.6 RATIO (10-20); Calcium,Total 8.8 mg/dL (8.5-10.1); Chloride 107 mmol/L (98-107); Creatinine, Serum 1.32 mg/dL (0.55-1.02); EST Glomerular Filtration Rate 41 mL/min (>60); Est Glom Filt Rate - Afr Amer 50 mL/min (>60); Estimated Creatinine Clearance 31.82 ml/min; Glucose 110 mg/dL (74-106); Potassium 4.1 mmol/L (3.5-5.1); Sodium Level 137 mmol/L (136-145)
[2022-07-01 12:30] VITALS: BP 139/68; PULSE 134
--- NOTE | 2022-07-01 13:10 | NURSING ---
Radial pulse 134, irreg. Patient is lying in bed, states she feels tired. Updated Dr. Perry, order for one time dose 100mg metoprolol.
[2022-07-01 13:21] VITALS: PULSE 134
[2022-07-01] MEDS: Metoprolol Tartrate 100 MG Tablet PO ×2 (13:21→20:41)
[2022-07-01 14:00] VITALS: BP 139/68; PULSE 138; RESP 16; TEMP 36.5; O2SAT 95
--- NOTE | 2022-07-01 18:47 | NURSING ---
Pt had appt this PM with Forest Nelson @ [facility]. recommend 24 hr holter monitor.
[2022-07-01 20:41] VITALS: BP 105/76; PULSE 123
[2022-07-01] MEDS: dilTIAZem CD 240 MG Capsule PO (20:41)
[2022-07-01] MEDS: Mirtazapine 15 MG Tablet 7.5 MG PO (20:44)
[2022-07-01] MEDS: 0.9% Saline Lock 10 ML Syringe IV (21:21)
[2022-07-02] MEDS: Menthol/Lanolin/Calamine/Znox 113 GM Tube 1 APPLIC TOPICAL ×2 (05:11→17:38)
[2022-07-02] MEDS: Nystatin Powder 15gm Bottle 1 APPLIC TOPICAL ×2 (05:11→17:38)
[2022-07-02 05:13] VITALS: BP 104/56; PULSE 95
[2022-07-02] MEDS: APIXABAN 5 MG TABLET PO ×2 (05:13→17:40)
[2022-07-02] MEDS: dilTIAZem CD 240 MG Capsule PO (05:13)
[2022-07-02] MEDS: Metoprolol Tartrate 100 MG Tablet PO ×2 (05:13→17:40)
[2022-07-02] MEDS: Senna/Docusate Sodium 1 Tablet PO ×2 (05:13→17:40)
[2022-07-02] MEDS: Acetaminophen 500 MG Tablet 1000 MG PO ×3 (05:17→20:19)
[2022-07-02 06:00] VITALS: BMI 30.1
[2022-07-02 09:40] VITALS: PULSE 55
--- NOTE | 2022-07-02 11:41 | NURSING ---
Holter monitor placed this morning around 11am, can be removed after 24hrs.
[2022-07-02 13:26] VITALS: BMI 30.1
[2022-07-02 14:00] VITALS: BP 106/68; PULSE 58; RESP 14; TEMP 36.5; O2SAT 95
[2022-07-02] MEDS: 0.9% Saline Lock 10 ML Syringe IV (14:30)
[2022-07-02 17:40] VITALS: BP 106/68; PULSE 58
[2022-07-02] MEDS: Mirtazapine 15 MG Tablet 7.5 MG PO (20:20)
[2022-07-02 20:31] VITALS: PULSE 78; O2SAT 95
[2022-07-03] MEDS: traMADol 50 MG Tablet PO (00:05)
[2022-07-03] MEDS: Acetaminophen 500 MG Tablet 1000 MG PO ×3 (05:22→20:04)
[2022-07-03] MEDS: APIXABAN 5 MG TABLET PO ×2 (05:22→17:32)
[2022-07-03 05:23] VITALS: BP 131/77; PULSE 74
[2022-07-03] MEDS: Metoprolol Tartrate 50 MG Tablet PO ×2 (05:23→17:33)
[2022-07-03] MEDS: Senna/Docusate Sodium 1 Tablet PO ×2 (05:23→17:33)
[2022-07-03] MEDS: Menthol/Lanolin/Calamine/Znox 113 GM Tube 1 APPLIC TOPICAL ×2 (05:31→17:34)
[2022-07-03] MEDS: Nystatin Powder 15gm Bottle 1 APPLIC TOPICAL ×2 (05:31→17:34)
[2022-07-03 05:59] VITALS: BMI 30.5
--- NOTE | 2022-07-03 08:14 | MDS.RN ---
Information for the mds was obtained from review of the clinical record, interview of resident, staff, and direct observation of resident's care.
[2022-07-03 10:00] VITALS: RESP 20; O2SAT 97
[2022-07-03 14:00] VITALS: BP 158/72; PULSE 124; RESP 18; TEMP 36.6; O2SAT 97
[2022-07-03 17:33] VITALS: BP 158/72; PULSE 102
[2022-07-03] MEDS: 0.9% Saline Lock 10 ML Syringe IV (17:47)
[2022-07-03] MEDS: Arthritis Pain Compound 60 CLICK TUBE TOPICAL (20:03)
[2022-07-03] MEDS: Mirtazapine 15 MG Tablet 7.5 MG PO (20:04)
[2022-07-04] MEDS: Acetaminophen 500 MG Tablet 1000 MG PO ×3 (05:27→20:11)
[2022-07-04 05:28] VITALS: BP 166/97; PULSE 104
[2022-07-04] MEDS: Metoprolol Tartrate 50 MG Tablet PO ×3 (05:28→17:19)
[2022-07-04] MEDS: APIXABAN 5 MG TABLET PO ×2 (05:28→17:19)
[2022-07-04] MEDS: Senna/Docusate Sodium 1 Tablet PO ×2 (05:28→17:19)
[2022-07-04] MEDS: Arthritis Pain Compound 60 CLICK TUBE TOPICAL ×2 (05:29→17:17)
[2022-07-04] MEDS: Menthol/Lanolin/Calamine/Znox 113 GM Tube 1 APPLIC TOPICAL ×2 (05:32→17:17)
[2022-07-04] MEDS: Nystatin Powder 15gm Bottle 1 APPLIC TOPICAL ×2 (05:33→17:18)
[2022-07-04] MEDS: 0.9% Saline Lock 10 ML Syringe IV (08:16)
[2022-07-04 13:08] VITALS: BP 144/85; O2SAT 94
[2022-07-04 13:20] VITALS: BP 144/85; PULSE 120
--- NOTE | 2022-07-04 13:44 | NURSING ---
Pt having fluctuating, high heart rate (120-150), bp 144/85.Pt confused, stated she saw a goat outside the window. Dr. Perry called, ordered Lopressor 50mg x1 and recheck bp/pulse.
[2022-07-04 14:32] VITALS: BP 128/62; PULSE 111
--- NOTE | 2022-07-04 16:35 | CASEMGMT ---
Social Work Family requesting to meet with SW. EMILY met with pt and pt dgt Rosalind. Rosalind stating they would like pt to discharge home on Saturday 07/08 with the services of [facility]. Pt has a hospital bed, YOJANA greenberg, w/c, lindsey pollack and family is working on obtaining a seralift. Referral faxed to [facility]. Plan: D/C home with hospice 07/08/22 BOBO Asif
[2022-07-04 17:19] VITALS: BP 128/62; PULSE 111
--- NOTE | 2022-07-04 18:58 | DS.PCM_ITS ---
Providers Date of Admission: 06/21/22 Primary Care Physician: Dr. Aneesh Chang MD Reason For Visit: AFIB,RVR,CHRONIC, HEART FAILURE Diagnosis Discharge Diagnosis (1) Debility: Status: Acute Code(s): R53.81 - Other malaise (2) Hypoxia: Status: Resolved Code(s): R09.02 - Hypoxemia (3) Atrial fibrillation with RVR: Status: Resolved Code(s): I48.91 - Unspecified atrial fibrillation (4) Acute on chronic diastolic (congestive) heart failure: Status: Chronic Code(s): I50.33 - Acute on chronic diastolic (congestive) heart failure (5) DVT, bilateral lower limbs: Status: Acute Code(s): I82.403 - Acute embolism and thrombosis of unspecified deep veins of lower extremity, bilateral Plan 82 year old female with below past medical history hospitalized for acute hypoxia secondary to acute on chronic diastolic congestive heart failure, complicated by atrial fibrillation with rapid ventricular response, hypokalemia, admitted to TCU with debility, here for rehabilitation, strengthening, prior to discharge home with family. * Debility - PT/OT. * Pain - Tylenol 1000mg q8h, Tramadol 50mg q6h prn pain (4-10). * Bowel - senna/colace 1 tablet bid, Dulcolax 10mg pr x 1 prn, MOM 30ml po x 1 prn. * Adult immunization - Administer pneumonia vaccine, covid19 vaccine, flu vaccine as appropriate. * DVT prophylaxis - on Eliquis 5mg bid. * Atrial fibrillation - Metoprolol 100mg bid, Diltiazem CD 240mg daily, Eliquis 5mg bid. * Bilateral lower extremity DVT - Eliquis 5mg bid. * Acute on chronic diastolic congestive heart failure - Metoprolol 100mg bid, Jardiance 10mg daily, Furosemide 40mg bidlx, start Entresto 24/26mg bid x 14 days, then 49/51mg bid x 14 days, then 97/103mg bid indefinitely, monitor blood pressure. * Appetite loss - Mirtazapine 7.5mg qhs, stable chronic jail use, GDR not recommended. * Hypokalemia - KCL 20meq daily. Medications at Discharge Home Medications calcium carbonate 200 mg calcium (500 mg) chewable tablet 1,000 mg PO Q4H PRN PRN Indigestion #0 tabs 07/04/22 metoprolol tartrate 50 mg tablet 50 mg PO BID 30 days #60 tabs 07/04/22 Hospital Course Operations None Procedures None Summary of Care Provided Minutes Spent on Discharge: 35 Hospital Course: 82 year old female with below past medical history hospitalized for acute hypo cameron secondary to acute on chronic diastolic congestive heart failure, complicated by atrial fibrillation with rapid ventricular response, hypokalemia, admitted to TCU with debility, here for rehabilitation, strengthening, prior to discharge home with family. 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 Her heart rate was as low as 29, EKG showed junctional rhythm. Resident, resident family declined pacemaker implantation. Discharge home with hospice 07/08/2022. Physical Exam Const alert General Appearance: cooperative HEENT normocephalic Eyes PERRL and EOMs intact bilaterally Neck supple, no JVD and no carotid bruits Resp normal respiratory effort, normal air movement and clear to auscultation bilaterally Cardio Cardio Narrative: Irregularly irregular. GI normal to inspection, nondistended, normoactive bowel sounds, non-tender and non-distended Extremity normal capillary refill General Extremity: Negative for edema Skin no rashes or lesions noted General Skin Exam: no breakdown Psych affect normal Appearance: appropriate Weight / BMI Weight Weight: 84.482 kg Body Mass Index (BMI) 30.0 ABG / Lab / Microbiology Data Result Diagrams: 07/01/22 05:13 07/01/22 05:13 Microbiology: Microbiology 06/28/22 13:54 Mucosa - Nasopharyngeal Respiratory Panel (PCR) - Final 06/28/22 13:47 Nasal Secretion SARS-CoV-2 Antigen (Rapid) - Final 06/25/22 06:00 Nasal Secretion SARS-CoV-2 Antigen (Rapid) - Final 06/23/22 15:17 Nasal Secretion SARS-CoV-2 Antigen (Rapid) - Final 06/22/22 06:25 Nasal Secretion SARS-CoV-2 Antigen (Rapid) - Final D/C Instructions Discharge Diet: No restrictions Discharge Activity: Return to Normal Activity, May Shower and Use Walker Weight Bearing Status: Weight bearing as tolerated Call your doctor if you observe: Fever of 101 or Higher, Inability to urinate, Inability to have a bowel movement, Shortness of breath, Dizziness, Fainting spells, Swelling in the ankles, Chest pain and Uncontrolled pain Additional Instructions: Discharge home with hospice 07/08/2022. Please Follow Up With: Chichi Newberry, PA Meaningful Use Info Meaningful Use Diagnoses (Choose all that apply): None applicable Discharge Plan Admission Admit Date/Time: 06/21/22 16:00 Primary Reason for Your Visit: Debility. Attending Provider: Gregory Perry Chi Primary Care Provider: Aneesh Chang Instructions Additional Instructions / Restrictions: Discharge home with hospice 07/08/2022. Discharge Orders/Prescriptions Prescriptions: New calcium carbonate 200 mg calcium (500 mg) Tablet,Chewable 1,000 mg PO Q4H PRN PRN (Reason: Indigestion) Qty: 0 0RF metoprolol tartrate 50 mg Tablet 50 mg PO BID 30 Days Qty: 60 0RF Discontinued Entresto 97-103 mg tablet 1 tab PO ONCE magnesium hydroxide [Milk of Magnesia] 400 mg/5 mL suspension 5 ml PO DAILY PRN metoprolol tartrate 100 mg tablet 50 mg PO BID tramadol 50 mg Tablet 50 mg PO Q6H PRN PRN (Reason: Pain Score 4-10) 7 Days Qty: 28 0RF acetaminophen 500 mg tablet 1,000 mg PO Q8 mirtazapine 15 mg tablet 7.5 mg PO QHS Eliquis 5 mg tablet 5 mg PO BID Referrals / Follow Up: Aneesh Chang MD [Primary Care Provider] - Disposition Disposition (needs filled in before D/C Order can be placed): Hospice in Home
[2022-07-04] MEDS: Mirtazapine 15 MG Tablet 7.5 MG PO (20:11)
[2022-07-04 20:25] VITALS: PULSE 98; O2SAT 93
[2022-07-05] MEDS: Arthritis Pain Compound 60 CLICK TUBE TOPICAL ×2 (05:24→18:21)
[2022-07-05] MEDS: APIXABAN 5 MG TABLET PO ×2 (05:24→18:41)
[2022-07-05] MEDS: Acetaminophen 500 MG Tablet 1000 MG PO ×3 (05:25→21:34)
[2022-07-05] MEDS: Senna/Docusate Sodium 1 Tablet PO ×2 (05:25→18:21)
[2022-07-05 05:26] VITALS: BP 146/98; PULSE 91
[2022-07-05] MEDS: Metoprolol Tartrate 50 MG Tablet PO ×2 (05:26→18:20)
[2022-07-05] MEDS: Nystatin Powder 15gm Bottle 1 APPLIC TOPICAL ×2 (05:30→18:20)
[2022-07-05] MEDS: Menthol/Lanolin/Calamine/Znox 113 GM Tube 1 APPLIC TOPICAL ×2 (05:31→18:20)
[2022-07-05 06:00] VITALS: BMI 30.5
--- NOTE | 2022-07-05 09:26 | CASEMGMT ---
Social Work Received call from [facility] confirming receipt of referral. Meeting scheduled with the pt and family today at 1600. DC remains 07/08. ROBIN DallasW
[2022-07-05] MEDS: 0.9% Saline Lock 10 ML Syringe IV (10:11)
[2022-07-05 11:37] VITALS: PULSE 79; RESP 15; O2SAT 94
[2022-07-05 14:00] VITALS: BP 155/103; PULSE 105; RESP 21; TEMP 36.1; O2SAT 93
[2022-07-05 18:20] VITALS: BP 124/72; PULSE 110
[2022-07-05 18:25] VITALS: BP 124/72; PULSE 110
[2022-07-05] MEDS: Mirtazapine 15 MG Tablet 7.5 MG PO (21:34)
[2022-07-06 05:35] VITALS: BP 164/75; PULSE 72
[2022-07-06] MEDS: Metoprolol Tartrate 50 MG Tablet PO ×2 (05:35→17:56)
[2022-07-06] MEDS: Arthritis Pain Compound 60 CLICK TUBE TOPICAL ×2 (05:35→17:56)
[2022-07-06] MEDS: Acetaminophen 500 MG Tablet 1000 MG PO ×3 (05:35→21:14)
[2022-07-06] MEDS: APIXABAN 5 MG TABLET PO ×2 (05:36→17:57)
[2022-07-06] MEDS: Nystatin Powder 15gm Bottle 1 APPLIC TOPICAL ×2 (05:36→21:13)
[2022-07-06] MEDS: Senna/Docusate Sodium 1 Tablet PO ×2 (05:36→17:57)
[2022-07-06] MEDS: Menthol/Lanolin/Calamine/Znox 113 GM Tube 1 APPLIC TOPICAL ×2 (05:37→17:54)
[2022-07-06] MEDS: 0.9% Saline Lock 10 ML Syringe IV ×2 (05:50→11:41)
[2022-07-06 06:00] VITALS: BMI 31.0
[2022-07-06 06:39] LABS: Absolute Lymphocyte Count 1.83 X10^3/uL (0.83-4.51); Absolute Neutrophil Count 3.7 X10^3/uL (2.0-7.7); Basophil# 0.04 X10^3/uL; Basophil% 0.6 % (0-1); Eosinophil# 0.23 X10^3/uL; Eosinophils% 3.6 % (0-5); Hematocrit 37.6 % (37-47); Hemoglobin 12.1 g/dL (12.0-15.0); Lymphocyte # 1.83 X10^3/ul (0.83-4.51); Lymphocyte % 28.3 % (19-41); Mean Corp Hgb Conc 32.2 g/dL (32-36); Mean Platelet Vol. 9.9 fl (6.2-12.0); Monocyte# 0.68 X10^3/uL; Monocyte% 10.5 % (0-10); NRBC Flagged by Analyzer 0 % (0-5); Neutrophil # 3.67 X10^3/uL (2.7-7.7); Neutrophil % 56.7 % (47-70); Platelet Count 188 K/mm3 (150-450); RBC Distribution Width CV 14.5 % (11.6-14.6); RBC Distribution Width SD 46.2 fl (35.1-43.9); Red Blood Count 4.32 M/mm3 (4.2-5.4); White Blood Count 6.5 K/mm3 (4.4-11.0)
[2022-07-06 07:11] LABS: Anion Gap 2 (5-15); BUN 21 mg/dL (7-18); BUN/Creat Ratio 27.5 RATIO (10-20); Calcium,Total 8.9 mg/dL (8.5-10.1); Chloride 109 mmol/L (98-107); Creatinine, Serum 0.76 mg/dL (0.55-1.02); EST Glomerular Filtration Rate 77 mL/min (>60); Est Glom Filt Rate - Afr Amer 93 mL/min (>60); Glucose 95 mg/dL (74-106); Potassium 3.9 mmol/L (3.5-5.1); Sodium Level 138 mmol/L (136-145)
[2022-07-06 14:00] VITALS: BP 169/73; PULSE 79; RESP 14; TEMP 36.7; O2SAT 95
[2022-07-06 17:56] VITALS: BP 169/73; PULSE 79
[2022-07-06 21:15] VITALS: O2SAT 96
[2022-07-06] MEDS: Mirtazapine 15 MG Tablet 7.5 MG PO (21:15)
[2022-07-07 05:34] VITALS: BMI 30.4
[2022-07-07] MEDS: Nystatin Powder 15gm Bottle 1 APPLIC TOPICAL ×2 (05:36→20:15)
[2022-07-07] MEDS: Menthol/Lanolin/Calamine/Znox 113 GM Tube 1 APPLIC TOPICAL ×2 (05:36→17:19)
[2022-07-07 05:37] VITALS: BP 152/71; PULSE 75
[2022-07-07] MEDS: Metoprolol Tartrate 50 MG Tablet PO ×2 (05:37→17:16)
[2022-07-07] MEDS: Senna/Docusate Sodium 1 Tablet PO ×2 (05:37→17:17)
[2022-07-07] MEDS: Acetaminophen 500 MG Tablet 1000 MG PO ×3 (05:37→20:16)
[2022-07-07] MEDS: APIXABAN 5 MG TABLET PO ×2 (05:38→17:16)
[2022-07-07] MEDS: 0.9% Saline Lock 10 ML Syringe IV ×2 (05:41→10:25)
--- NOTE | 2022-07-07 05:43 | NURSING ---
Pt wishes to have arthritis compound cream applied after bathing. Will report to oncoming nurse.
[2022-07-07] MEDS: Arthritis Pain Compound 60 CLICK TUBE TOPICAL ×2 (07:54→17:16)
[2022-07-07 10:25] VITALS: PULSE 70; RESP 18; O2SAT 95
[2022-07-07 13:12] VITALS: BP 157/66; PULSE 78
[2022-07-07 14:00] VITALS: BP 146/53; PULSE 75; RESP 18; TEMP 36.7; O2SAT 97
[2022-07-07 17:16] VITALS: BP 146/53; PULSE 75
[2022-07-07] MEDS: Mirtazapine 15 MG Tablet 7.5 MG PO (20:16)
[2022-07-08] MEDS: Acetaminophen 500 MG Tablet 1000 MG PO (05:12)
[2022-07-08 05:13] VITALS: BP 184/68; PULSE 76
[2022-07-08] MEDS: APIXABAN 5 MG TABLET PO (05:13)
[2022-07-08] MEDS: Metoprolol Tartrate 50 MG Tablet PO (05:13)
[2022-07-08] MEDS: Senna/Docusate Sodium 1 Tablet PO (05:13)
[2022-07-08] MEDS: Nystatin Powder 15gm Bottle 1 APPLIC TOPICAL (05:14)
[2022-07-08] MEDS: Menthol/Lanolin/Calamine/Znox 113 GM Tube 1 APPLIC TOPICAL (05:16)
--- NOTE | 2022-07-08 05:20 | NURSING ---
Arthritis compound cream to be applied after bathing this am. Will report to oncoming nurse.
[2022-07-08 05:46] VITALS: BMI 31.1
[2022-07-08] MEDS: Arthritis Pain Compound 60 CLICK TUBE TOPICAL (08:19)
[2022-07-08] MEDS: Furosemide 40 MG Tablet PO (08:19)
[2022-07-08 09:21] VITALS: PULSE 71; RESP 18; O2SAT 97
--- NOTE | 2022-07-08 09:53 | CASEMGMT ---
Social Work SW spoke with dtr to confirm transport. Dtr has a van and will transport pt via w/c. SW updated nursing. BIMS (10/29) and PHQ-9 (11/10) completed for MDS assessment. Karly Guerrier MSW [employer]
[2022-07-08 11:26] VITALS: BP 136/76; PULSE 69; RESP 18; TEMP 36.6; O2SAT 95
== END 2022-07-08 11:34 | disposition hospice, home (50) | DRG 291 ==
PROVIDERS: Admitting Provider Family Medicine Geriatric Medicine; PCP Internal Medicine Infectious Disease; Visit Provider Family Medicine Geriatric Medicine
DX: I11.0 Hypertensive heart disease with heart failure (principal); I50.33 Acute on chronic diastolic (congestive) heart failure; I82.403 Acute embolism and thrombosis of unspecified deep veins of lower extremity, bilateral; I49.5 Sick sinus syndrome; Z79.01 Long term (current) use of anticoagulants; I48.91 Unspecified atrial fibrillation; E87.6 Hypokalemia; F41.9 Anxiety disorder, unspecified; Z79.899 Other long term (current) drug therapy; F32.A Depression, unspecified; R09.02 Hypoxemia
CPT/HCPCS: 36415; 80048; 82962; 83540; 85025; 87633; 87811; 93005; 97110; 97129; 97130; 97162; 97165; 97530; 97535; J7030; A4216

== ENCOUNTER → 2022-07-02 | Outpatient (CLI) | payer OTHER, SELFPAY | END | disposition home or self-care (01) | LOC: PSN 09:33 | PROVIDERS: PCP Internal Medicine Infectious Disease; Visit Provider Physician Assistant Medical | DX: I48.91 Unspecified atrial fibrillation (principal) | CPT/HCPCS: 93225; 93226 ==